=== PATIENT | male | born 1960 | race Caucasian/White ===

== ENCOUNTER → 2019-11-24 13:34 | Outpatient (BNVA) | payer MEDICARE, MEDICAID, SELFPAY | PROVIDERS: Family Provider Nurse Practitioner Family; PCP Nurse Practitioner Family; Visit Provider Nurse Practitioner Family | DX: E11.9 Type 2 diabetes mellitus without complications (principal); I10 Essential (primary) hypertension | CPT/HCPCS: 80053; 83036 ==

== ENCOUNTER → 2020-02-15 13:10 | Outpatient (BNVA) | payer MEDICARE, MEDICAID, SELFPAY | PROVIDERS: Family Provider Nurse Practitioner Family; PCP Nurse Practitioner Family; Referring Provider Nurse Practitioner Family; Visit Provider Dermatology | DX: L24.9 Irritant contact dermatitis, unspecified cause (principal); L28.0 Lichen simplex chronicus; D22.9 Melanocytic nevi, unspecified | CPT/HCPCS: 99203 ==

== ENCOUNTER → 2020-03-08 13:31 | Outpatient (BNVA) | payer MEDICARE, MEDICAID, SELFPAY | PROVIDERS: Family Provider Nurse Practitioner Family; PCP Nurse Practitioner Family; Visit Provider Dermatology | DX: L24.9 Irritant contact dermatitis, unspecified cause (principal); L81.0 Postinflammatory hyperpigmentation | CPT/HCPCS: 99213 ==

== ENCOUNTER → 2020-03-10 08:09 | Outpatient (BNVA) | payer MEDICARE, MEDICAID, SELFPAY | PROVIDERS: Family Provider Nurse Practitioner Family; PCP Nurse Practitioner Family; Visit Provider Nurse Practitioner Family | DX: E11.9 Type 2 diabetes mellitus without complications (principal); I10 Essential (primary) hypertension | CPT/HCPCS: 80053; 80061; 82043; 83036; 85025 ==

== ENCOUNTER 2020-03-11 09:18 | Emergency (ER) | payer MEDICARE, MEDICAID, SELFPAY ==
[2020-03-11 09:19] VITALS: BP 174/106; PULSE 95; RESP 18; TEMP 36.8; O2SAT 96; BMI 34.2
--- NOTE | 2020-03-11 09:25 | ED_ITS ---
HPI - Neuro Symptoms/Deficit General: Chief Complaint: General Medical Stated Complaint: FACIAL DROOP Time Seen by Provider: 03/11/20 09:19 History of Present Illness: HPI Narrative: 59-year-old male comes into the emergency room with complaint of right-sided weakness and facial droop. However he has previously had a stroke in the past. That stroke resulted in some right- sided weakness as well he feels some of the facial droop is new as well as a little bit of difficulty swallowing. His last known well was about 9 or 10 AM yesterday nearly 24 hours ago. He did note a little trouble with swallowing last night he says it is better now the family had reported EMS that he was drooling out the right side of his mouth a little bit which was not normal for him. Associated symptoms: Deny chest pain, malaise, nausea or vomiting Review of Systems Const: Denies: fever(s), chills, body aches, change in appetite, fatigue or malaise ENMT: Denies: throat pain, ear or mastoid pain, nasal discharge or nasal congestion Card: Denies: chest pain, edema, dyspnea on exertion or orthopnea Resp: Denies: dyspnea, productive cough or non-productive cough GI: Denies: abdominal pain, nausea, vomiting, hematemesis, coffee ground emesis, diarrhea, constipation, bloating, hematochezia or melena : Denies: flank pain, dysuria, urinary frequency or urinary urgency Skin/Breast: Denies: rash or pruritus PFSH ED PFSH: Medical History (Updated 03/11/20 @ 10:48 by Stas Steve DO) History of CVA (cerebrovascular accident) HTN (hypertension) Hyperlipidemia Type 2 diabetes mellitus without complication Surgical History Hx of tympanostomy Family History Mother Cancer Sister Cancer Father CAD (coronary artery disease) Stroke Social History Smoking and tobacco status: former smoker Second hand smoke exposure: Yes Alcohol intake: never NIH stroke score NIHSS: Level Of Consciousness - 1a: 0 Level Of Consciousness Questions - 1b: Both Correct Level Of Consciousness Commands - 1c: Both Correct Best Gaze - 2: Normal Visual Peck - 3: No Visual Loss Facial Palsy - 4: Partial Paralysis Motor Arm Right - 5: No Drift Motor Arm Left - 5: No Drift Motor Leg Right - 6: No Drift Motor Leg Left - 6: No Drift Limb Ataxia - 7: Absent Sensory - 8: Normal Best Language - 9: No Aphasia Dysarthia - 10: Mild/Moderate Dysarthia Extinction And Inattention - 11: 0 Score: Total Score: 3 Physical Exam Const: COMMON NORMALS: no acute distress GENERAL APPEARANCE: cooperative and comfortable ORIENTATION/CONSCIOUSNESS: Yes awake, Yes oriented to person, Yes oriented to place and Yes oriented to time HENMT: COMMON NORMALS: normocephalic, atraumatic and hearing grossly normal bilaterally HEAD & SCALP: normocephalic and atraumatic Eye: COMMON NORMALS: Equal, round and reactive pupils present, EOMs intact bilaterally, conjunctivae normal and no scleral icterus CONJUNCTIVA: Yes conjunctivae normal PUPIL: Yes Equal, round and reactive pupils present Neck/C-Spine: COMMON NORMALS: full ROM, no lymphadenopathy, supple and no JVD Lymph: LYMPHATIC: no lymphadenopathy noted and no lymphedema noted Resp: COMMON NORMALS: normal respiratory effort, No retractions, No use of accessory muscles and clear to auscultation bilaterally AUSCULTATION: clear to auscultation bilaterally Cardio: COMMON NORMALS: no JVD, regular rate, regular rhythm and No murmurs present (Cardio) RATE: regular rate RHYTHM: regular rhythm GI: COMMON NORMALS: Soft to palpation and No hepatosplenomegaly present AUSCULTATION: Yes normoactive bowel sounds PALPATION: Yes Soft to palpation, No Tenderness to palpation present (GI), No Guarding due to palpation present (GI) and Yes No hepatosplenomegaly present Extremity: COMMON NORMALS: normal to inspection, capillary refill normal, no clubbing, cyanosis or edema, no calf tenderness and no pedal edema Neuro: SENSORIUM/ORIENTATION: Yes oriented to person, Yes oriented to place and Yes oriented to time Skin: COMMON NORMALS: no rashes or lesions noted GENERAL SKIN EXAM: no rashes or lesions noted Course Vital Signs: Vital signs: Vital Signs Temperature 98.3 F 03/11/20 09:19 Pulse Rate 82 03/11/20 11:41 Respiratory Rate 18 09/11/20 11:41 Blood Pressure 120/89 09/11/20 11:41 Pulse Oximetry 95 03/11/20 11:41 MDM - Neuro Symptoms/Deficit MDM Narrative: Medical decision making narrative: Reviewed findings with patient and his . He has a stroke score of 3 but a lot of that is really residual from his previous stroke he says he is resolved now from what he felt was new earlier. At this point I do not think there is a lot to do he is over 24 hours out and his symptoms already resolved technically he experienced a TIA with his previous stroke it does make it more difficult we will set him up for an MRI carotid and echo and have him follow-up with his primary care as an outpatient if his worsening or changes symptoms return. Lab Data: Labs: Lab Results 03/11/20 03/11/20 03/11/20 Range/Units 09:27 09:27 09:27 WBC 9.5 (4.0-10.0) 10^3/ uL RBC 5.01 (4.1-5.3) 10^6/u L Hgb 14.2 (11.7-16.6) g/dL Hct 42.8 (42.0-52.0) % MCV 85.4 (80-94) fL MCH 28.3 (28.0-34.0) pg MCHC 33.2 (30.0-36.0) g/dL RDW 13.7 (12.1-15.1) % Plt Count 215 (130-400) 10^3/c mm MPV 11.6 H (7.4-10.4) fL Neut % (Auto) 69.9 % Lymph % (Auto) 20.0 % Dougherty % (Auto) 6.7 % Eos % (Auto) 3.0 % Baso % (Auto) 0.2 % Neut # (Auto) 6.62 (1.8-7.7) 10^3/u L Lymph # (Auto) 1.9 (0.8-4.8) 10^3/u L Dougherty # (Auto) 0.6 (0.2-0.9) 10^3/u L Eos # (Auto) 0.3 (0.0-0.8) 10^3/u L Baso # (Auto) 0.0 (0.0-0.1) 10^3/u L Nucleated RBC % (a uto) 0 % Nucleated RBCs # 0.0 /100WBC PT 12.50 (12.1-14.9) SECO NDS INR 0.91 (0.8-1.2) APTT 30.0 (23.9-36.7) SECO NDS Sodium 140 (136-145) mmol/L Potassium 4.3 (3.5-5.1) mmol/L Chloride 104 (98-107) mmol/L Carbon Dioxide 26 (22-29) mmol/L Anion Gap 14.3 (5-19) BUN 15 (6-20) mg/dL Creatinine 0.9 (0.7-1.2) mg/dL GFR Calculation 87.0 L (90-130) mL/min Glucose 125 H (65-115) mg/dL POC Glucose (70-110) mg/dL Calculated Osmolal ity 288 (285-295) mOsm/k g Calcium 9.1 (8.5-10.5) mg/dL Total Bilirubin 0.2 (0.15-1.2) mg/dL AST 17 (0-40) U/L ALT 12 (0-41) U/L Alkaline Phosphata se 108 (40-130) IU/L Total Protein 7.4 (6.6-8.7) g/dL Albumin 4.1 (3.5-5.2) g/dL Globulin 3.3 (1.3-4.6) g/dL Urine Color (Yellow) Urine Appearance (CLEAR) Urine pH (5-7) Ur Specific Gravit y (1.005-1.030) Urine Protein (Negative) Urine Glucose (UA) (Normal) Urine Ketones (Negative) Urine Blood (Negative) Urine Nitrate (Negative) Urine Bilirubin (Negative) Urine Urobilinogen (Negative) mg/dL Ur Leukocyte Hortensia ase (Negative) Urine RBC (0-2) /hpf Urine WBC (0-5) /hpf Ur Squamous Epith Cells (0-5) /hpf Amorphous Sediment Urine Bacteria (NONE) /hpf 03/11/20 03/11/20 Range/Units 09:38 10:21 WBC (4.0-10.0) 10^3/ uL RBC (4.1-5.3) 10^6/u L Hgb (11.7-16.6) g/dL Hct (42.0-52.0) % MCV (80-94) fL MCH (28.0-34.0) pg MCHC (30.0-36.0) g/dL RDW (12.1-15.1) % Plt Count (130-400) 10^3/c mm MPV (7.4-10.4) fL Neut % (Auto) % Lymph % (Auto) % Dougherty % (Auto) % Eos % (Auto) % Baso % (Auto) % Neut # (Auto) (1.8-7.7) 10^3/u L Lymph # (Auto) (0.8-4.8) 10^3/u L Dougherty # (Auto) (0.2-0.9) 10^3/u L Eos # (Auto) (0.0-0.8) 10^3/u L Baso # (Auto) (0.0-0.1) 10^3/u L Nucleated RBC % (a uto) % Nucleated RBCs # /100WBC PT (12.1-14.9) SECO NDS INR (0.8-1.2) APTT (23.9-36.7) SECO NDS Sodium (136-145) mmol/L Potassium (3.5-5.1) mmol/L Chloride (98-107) mmol/L Carbon Dioxide (22-29) mmol/L Anion Gap (5-19) BUN (6-20) mg/dL Creatinine (0.7-1.2) mg/dL GFR Calculation (90-130) mL/min Glucose (65-115) mg/dL POC Glucose 114 (70-110) mg/dL Calculated Osmolal ity (285-295) mOsm/k g Calcium (8.5-10.5) mg/dL Total Bilirubin (0.15-1.2) mg/dL AST (0-40) U/L ALT (0-41) U/L Alkaline Phosphata se (40-130) IU/L Total Protein (6.6-8.7) g/dL Albumin (3.5-5.2) g/dL Globulin (1.3-4.6) g/dL Urine Color Yellow (Yellow) Urine Appearance Hazy A (CLEAR) Urine pH 6.5 (5-7) Ur Specific Gravit y 1.010 (1.005-1.030) Urine Protein Neg (Negative) Urine Glucose (UA) Norm (Normal) Urine Ketones Negative (Negative) Urine Blood Neg (Negative) Urine Nitrate Positive H (Negative) Urine Bilirubin Neg (Negative) Urine Urobilinogen Neg (Negative) mg/dL Ur Leukocyte Hortensia ase 2+ H (Negative) Urine RBC None (0-2) /hpf Urine WBC 55-80 H (0-5) /hpf Ur Squamous Epith Cells 0-4 H (0-5) /hpf Amorphous Sediment Not Reportable Urine Bacteria 4+ H (NONE) /hpf Discharge Plan Discharge Patient Disposition: Home Clinical Impression: Transient ischemic attack (TIA), HTN (hypertension), Type 2 diabetes mellitus without complication Condition: Stable Prescriptions: New aspirin 81 mg tablet,chewable 81 mg PO DAILY Qty: 30 RF: 0 No Action clobetasol 0.05 % ointment 1 applic TOPICAL BID Qty: 45 RF: 1 ofloxacin 0.3 % drops 10 drop EAR-BOTH DAILY 7 Days Qty: 10 RF: 0 ketoconazole 2 % cream 1 applic TOPICAL BID Qty: 30 RF: 1 simvastatin 40 mg tablet 40 mg PO DAILY Qty: 30 RF: 1 tamsulosin 0.4 mg capsule 0.4 mg PO DAILY Qty: 90 RF: 1 docusate sodium [DOK] 100 mg capsule 100 mg PO BID Qty: 60 RF: 5 metformin 500 mg tablet 500 mg PO DAILY Qty: 90 RF: 0 amlodipine 10 mg tablet 10 mg PO DAILY Qty: 90 RF: 1 metoprolol tartrate 25 mg tablet 12.5 mg PO BID Qty: 90 RF: 0 clopidogrel 75 mg tablet 75 mg PO DAILY Qty: 30 RF: 2 Discharge Orders: Discharge Order (Routine); Ordered 03/11/20 Ordered By: Stas Steve Referrals: Katelynn Markham FNP [Primary Care Provider] - Discharge Diet: Usual diet Discharge Activity: Increase activity as tolerated Discharge Date/Time: 03/11/20 11:42 Coding Level of Care Code ED Crop Quantitative Geneticist for Grace Severino
[2020-03-11 09:29] VITALS: BP 131/83; PULSE 77; RESP 11; O2SAT 95
--- NOTE | 2020-03-11 09:31 | ECG_ITS ---
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 Measurements Intervals Diamond Rate: 76 P: 19 MO: 143 QRS: 2 QRSD: 86 T: 15 QT: 364 QTc: 410 Interpretive Statements SINUS RHYTHM No previous ECG available for comparison Electronically Signed On 03-11-2020 14:58:21 CDT by Fernando Mejia M.D. [id number]
--- NOTE | 2020-03-11 09:31 | CT_ITS ---
WS: [id number] CT HEAD TECHNIQUE: Noncontrast CT of the head obtained from the skullbase to the vertex. CLINICAL INFORMATION: Symptoms of Acute Stroke COMPARISON: None. DLP: 840.[address] scans at [facility] use at least one of these dose optimization techniques: automat ed exposure control; mA and/or kV adjustment per patient size (includes targeted exams where dose is matched to clinical indication); or iterative reconstruction. FINDINGS: No evidence of intracranial hemorrhage or mass effect. Ventricular system and basal cisterns are mitchell nt. Mild small vessel changes with mild parenchymal volume loss. No extra-axial fluid collections. No evidence of mass or mass effect. Normal herrera-white differentiation. Mild mucosal thickening mastoid air cells. Fluid and mucosal thickening in the ethmoid air cells. CT/CT head wo con* [id number] IMPRESSION: 1. No evidence of intracranial hemorrhage or mass effect. 2. Mild small vessel changes with mild parenchymal volume loss. 3. No acute intracranial findings. Notified Stas Steve DO at 03/11/2020 9:52 AM.
[2020-03-11 09:42] LABS: Glucose Point of Care 114 mg/dL (70-110)
[2020-03-11 09:48] LABS: Basophils % 0.2 %; Eosinophils # 0.3 10^3/uL (0.0-0.8); Hematocrit 42.8 % (42.0-52.0); Hemoglobin 14.2 g/dL (11.7-16.6); Lymphocytes # 1.9 10^3/uL (0.8-4.8); Mean Corpuscular HGB Conc 33.2 g/dL (30.0-36.0); Mean Corpuscular Hemoglobin 28.3 pg (28.0-34.0); Mean Corpuscular Volume 85.4 fL (80-94); Mean Platelet Volume 11.6 fL (7.4-10.4); Monocytes # 0.6 10^3/uL (0.2-0.9); Monocytes % 6.7 %; Neutrophils # 6.62 10^3/uL (1.8-7.7); Neutrophils % 69.9 %; Nucleated Red Blood Cells % 0 %; Platelet Count 215 10^3/cmm (130-400); Red Blood Count 5.01 10^6/uL (4.1-5.3); Red Cell Distribution Width 13.7 % (12.1-15.1); White Blood Count 9.5 10^3/uL (4.0-10.0)
[2020-03-11 09:54] LABS: INR 0.91 (0.8-1.2)
[2020-03-11 10:01] LABS: Alanine Aminotransferase 12 U/L (0-41); Albumin Level 4.1 g/dL (3.5-5.2); Alkaline Phosphatase 108 IU/L (40-130); Anion Gap 14.3 (5-19); Aspartate Amino Transferase 17 U/L (0-40); Blood Urea Nitrogen 15 mg/dL (6-20); Calcium 9.1 mg/dL (8.5-10.5); Carbon Dioxide 26 mmol/L (22-29); Chloride 104 mmol/L (98-107); Globulin 3.3 g/dL (1.3-4.6); Glucose 125 mg/dL (65-115); Osmolality Calculated 288 mOsm/kg (285-295); Potassium 4.3 mmol/L (3.5-5.1); Sodium 140 mmol/L (136-145); Total Bilirubin 0.2 mg/dL (0.15-1.2); Total Protein 7.4 g/dL (6.6-8.7)
[2020-03-11 10:46] VITALS: BP 131/84; PULSE 90; RESP 12; O2SAT 95
[2020-03-11 11:22] LABS: Add Urine Microscopic? YES; Bilirubin Urine Neg (Negative); Blood Urine Neg (Negative); Glucose Urine UA Norm (Normal); Ketones Urine Negative (Negative); Leukocyte Esterase Urine 2+ (Negative); Nitrate Urine Positive (Negative); Protein Urine Neg (Negative); Urine Appearance Hazy (CLEAR); Urine Color Yellow (Yellow); Urobilinogen Urine Neg (Negative); pH Urine 6.5 (5-7)
[2020-03-11 11:23] LABS: Add Urine Culture? Yes; Bacteria Urine 4+ /hpf; Squamous Epithelial Cell Urine 0-4 /hpf (0-5); WBC Urine 55-80 /hpf (0-5)
[2020-03-11 11:41] VITALS: BP 120/89; PULSE 82; RESP 18; O2SAT 95
--- NOTE | 2020-03-15 09:48 | DCPLANNER ---
late entry - disability case manager had message to schedule out patient testing for patient for MRI of head, carotid ultrasound, and an echo cardiogram. residence manager faxed order to centralized scheduling, will call for appointment information.
--- NOTE | 2020-03-17 10:24 | DCPLANNER ---
Patient has an MRI scheduled for Saturday, March 25, 2020 at 11:45 - centralized scheduling will call patient with appointment information. Patient has an carotid US and an echo scheduled for , March 24, 2020 - centralized scheduling will call patient with appointment information.
--- NOTE | 2020-04-05 15:20 | DCPLANNER ---
Patient did attend appointments scheduled for MRI, Carotid US and echo.
== END 2020-03-11 11:42 | disposition home or self-care (01) ==
PROVIDERS: Emergency Provider Family Medicine; PCP Nurse Practitioner Family
DX: G45.9 Transient cerebral ischemic attack, unspecified (principal); I10 Essential (primary) hypertension; E11.9 Type 2 diabetes mellitus without complications; Z79.84 Long term (current) use of oral hypoglycemic drugs; Z79.02 Long term (current) use of antithrombotics/antiplatelets; Z86.73 Personal history of transient ischemic attack (TIA), and cerebral infarction without residual deficits; E78.5 Hyperlipidemia, unspecified; Z87.891 Personal history of nicotine dependence
CPT/HCPCS: 12345; 36416; 70450; 80053; 81001; 82962; 85025; 85610; 85730; 87077; 87086; 87186; 93005; 96374; 99283; 99284

== ENCOUNTER 2020-03-24 13:16 | Outpatient (CLI) | payer MEDICARE, MEDICAID, SELFPAY ==
--- NOTE | 2020-03-24 13:30 | USCV_ITS ---
Rutledge Bro Age: 59 Gender: M : 1960 Exam Date: 03/24/2020 14:06 Ordering Phys: Katelynn Markham-C DESK ASSISTANT Technologist: Andie Hernandez [place] [facility] [place] TIA BP: 130 / 78 HR: 74 Rhythm: Sinus Technical Quality: Adequate MEASUREMENTS (Male / Female) Normal Values 2D ECHO LV Diastolic Diameter PLAX 4.8 cm 4.2 - 5.9 / 3.9 - 5.3 cm LV Systolic Diameter PLAX 2.6 cm LV Chamber Size 3.6 cm IVS Diastolic Thickness 1.5 cm 0.6 - 1.0 / 0.6 - 0.9 cm IVS Systolic Thickness 1.8 cm LVPW Diastolic Thickness 1.3 cm 0.6 - 1.0 / 0.6 - 0.9 cm LVPW Systolic Thickness 1.4 cm RV Chamber Size 2.8 cm LVOT Diameter 2.1 cm LV Ejection Fraction 2D Teich 77.6 % LV Ejection Fraction MOD 2C 20.1 % LV Ejection Fraction 2C AL 18.3 % LA Diameter 5.0 cm LA Width 3.0 cm LA Height 3.9 cm RA Width 2.7 cm RA Height 4.1 cm Aorta at Sinotubular Diameter 3.5 cm M-MODE LV Diastolic Diameter MM 6.1 cm 4.2 - 5.9 / 3.9 - 5.3 cm LV Systolic Diameter MM 3.4 cm LV Ejection Fraction MM Teich 74.0 % IVS Diastolic Thickness MM 0.9 cm 0.6 - 1.0 / 0.6 - 0.9 cm IVS Systolic Thickness MM 1.8 cm LVPW Diastolic Thickness MM 1.2 cm 0.6 - 1.0 / 0.6 - 0.9 cm LVPW Systolic Thickness MM 2.0 cm RV Diastolic Diameter MM 2.2 cm Aortic Annulus Diameter 3.5 cm LA Ao Ratio MM 1.4 DOPPLER AV Peak Velocity 152.0 cm/s LVOT Peak Velocity 110.0 cm/s AV Area Cont Eq vti 2.8 cm squared AV Area Cont Eq pk 2.5 cm squared MV Area PHT 3.5 cm squared Mitral E to A Ratio 1.1 MV E' Velocity 6.0 cm/s Mitral E to LV E' Lateral Ratio 13.9 TR Peak Velocity 235.0 cm/s TR Peak Gradient 22.1 mmHg TR Mean Velocity 169.5 cm/s TR Mean Gradient 12.7 mmHg TR Velocity Time Integral 57.9 cm TV Peak E Velocity 77.0 cm/s Right Atrial Pressure 3.0 mmHg Pulmonary Artery Systolic Pressu 25.1 mmHg PV Peak Velocity 85.0 cm/s RV Acceleration Time 0.1 s RV Ejection Time 0.3 s RV AcT/ET 0.3 FINDINGS Left Ventricle Normal left ventricular size and systolic function. LV systolic function is normal with EF of 55 to 60% with no regional wall motion abnormalities. Mild LVH is noted. Diastolic function is indeterminate because of limited quality tissue Doppler. Right Ventricle The right ventricle is mildly dilated with normal function Right Atrium The right atrium is normal in size. Left Atrium The left atrium is normal in size. Mitral Valve Structurally normal mitral valve without significant stenosis or prolapse. There is no mitral regurgitation. Aortic Valve Structurally normal aortic valve without significant sclerosis or stenosis. There is no aortic regurgitation. Tricuspid Valve Structurally normal tricuspid valve without significant stenosis or regurgitation. Insufficient TR jet to calculate RVSP. Pulmonic Valve Structurally normal pulmonic valve without significant stenosis. There is no pulmonic regurgitation. Pericardium Normal pericardium without effusion. Aorta Normal ascending aorta dimension. CONCLUSIONS Normal LV systolic function with EF of 55 to 60%. Diastolic function is indeterminate because of limited quality tissue doppler Fernando Mejia MD (Electronically Signed) Final Date: 24 March 2020 16:49 S
--- NOTE | 2020-03-24 14:15 | USCV_ITS ---
Bro Rutledge Age: 59 Gender: M : 1960 Exam Date: 03/24/2020 14:22 Ordering Phys: Katelynn Markham Technologist: Andie Hernandez [place] [facility] [place]: TIA Risk Factors: Unknown Previous Vascular Surgery: None Right Brachial BP: / Left Brachial BP: / Right Left Velocity (cm/s) Spectral Plaque Velocity (cm/s) Spectral Plaque Syst/Diast Broadening Syst/Diast Broadening 93.70/ 15.80 Prox CCA 98.60 / 24.60 63.10/ 15.80 Mid CCA 84.80 / 17.70 51.80/ 13.00 Distal CCA 63.10 / 24.60 45.70/ 12.20 Prox ICA 70.30 / 17.10 56.30/ 14.90 Mid ICA 70.30 / 17.70 47.50/ 17.00 Distal ICA 38.80 / 14.20 68.50 ECA 105.50 0.89 ICA/CCA 0.83 Antegrade Vertebral Antegrade 23.50/ 7.50 cm/s 38.80/ 10.40 cm/s Tri Subclavian Tri 76.90 65.00 FINDINGS Minimal plaques at the bifurcations and internal carotid arteries bilaterally Antegrade flow in the vertebral arteries bilaterally Intimal thickening in the common carotid arteries bilaterally Normal Doppler flow velocities in the external carotid arteries bilaterally CONCLUSIONS Minimal plaques at the bifurcations and internal carotid arteries bilaterally. Intimal thickening in the common carotid arteries bilaterally. No significant stenosis, based on the above findings [id number] Dr Rai Ugarte MD [facility] (Electronically Signed) Final Date: 24 March 2020 19:58 S
== END 2020-03-24 13:17 | disposition home or self-care (01) ==
LOC: RAD 13:23
PROVIDERS: PCP Nurse Practitioner Family; Visit Provider Nurse Practitioner Family
DX: G45.9 Transient cerebral ischemic attack, unspecified (principal)
CPT/HCPCS: 93306; 93880; 99204

== ENCOUNTER 2020-04-01 14:32 | Outpatient (CLI) | payer MEDICARE, MEDICAID, SELFPAY ==
--- NOTE | 2020-04-01 14:41 | MR_ITS ---
WS: [id number] MRI HEAD WITH CONTRAST TECHNIQUE: Sagittal T1, T2 axial, T2 axial FLAIR, axial susceptibility weighted imaging, axial diffus ion weighted images, and coronal T2 images were obtained. Pre and post-T1 axial and post T1 coronal i mages. ADC and FSPGR images. CLINICAL INFORMATION: TIA;HISTORY CVA COMPARISON: CT March 11, 2020 FINDINGS: No evidence of restricted diffusion to suggest acute ischemia. Ventricular system and basal cisterns are patent. Moderate small vessel changes. Mild parenchymal volume loss. Small vessel changes in the kristine. Chronic tiny lacunar infarct left thalamus. Chronic lacunar infarct right cerebellum. Normal va scular flow voids at the skull base. No extra axial fluid collections. No evidence of mass or mass ef fect. Mild mucosal thickening in the paranasal sinuses. Mild mucosal thickening in the mastoid air ce lls Tiny punctate focus of hemosiderin in the right parietal lobe. No abnormal gadolinium enhancement. No rmal optic chiasm and pituitary infundibulum. Normal dural venous sinuses. MR/MR head wo/w con [id number] IMPRESSION: 1. No evidence of restricted diffusion to suggest acute ischemia. 2. Moderate small vessel changes with mild parenchymal volume loss. 3. Chronic lacunar infarcts in the left thalamus and right cerebellum. 4. No abnormal gadolinium enhancement. 5. Mild mucosal thickening in the paranasal sinuses and mastoid air cells. Ret ention cyst in the maxillary sinuses. 6. No abnormal gadolinium enhancement.
== END 2020-04-01 14:33 | disposition home or self-care (01) ==
LOC: RADSHAW 14:36
PROVIDERS: PCP Nurse Practitioner Family; Visit Provider Family Medicine
DX: G45.9 Transient cerebral ischemic attack, unspecified (principal); Z86.73 Personal history of transient ischemic attack (TIA), and cerebral infarction without residual deficits; I63.81 Other cerebral infarction due to occlusion or stenosis of small artery
CPT/HCPCS: 70553; A9579

== ENCOUNTER → 2020-11-07 15:08 | Outpatient (BNVA) | payer MEDICARE, MEDICAID, SELFPAY | PROVIDERS: PCP Nurse Practitioner Family; Visit Provider Nurse Practitioner Family | DX: I10 Essential (primary) hypertension (principal); E78.5 Hyperlipidemia, unspecified; Z51.81 Encounter for therapeutic drug level monitoring; Z79.02 Long term (current) use of antithrombotics/antiplatelets; E11.9 Type 2 diabetes mellitus without complications; H91.90 Unspecified hearing loss, unspecified ear | CPT/HCPCS: 80053; 80061; 83036; 85025 ==

== ENCOUNTER → 2022-01-05 00:01 | Outpatient (BNVA) | payer MEDICARE, MEDICAID, SELFPAY | PROVIDERS: PCP Nurse Practitioner Family; Visit Provider Nurse Practitioner Family | DX: E11.9 Type 2 diabetes mellitus without complications (principal); I10 Essential (primary) hypertension; Z79.01 Long term (current) use of anticoagulants; L81.7 Pigmented purpuric dermatosis | CPT/HCPCS: 80053; 82043; 83036; 85025 ==

== ENCOUNTER 2022-04-10 12:26 | Outpatient (CLI) | payer MEDICARE, MEDICAID, SELFPAY ==
--- NOTE | 2022-04-10 12:30 | CT_ITS ---
WS: [id number] CT HEAD NONCONTRAST HISTORY: R53.1 - Weakness TECHNIQUE: Contiguous axial imaging performed through the brain in 2.5 mm imaging. Bone and soft tiss ue windows. Sagittal and coronal reformats reviewed. All CT scans at [facility] use at least one of these dose optimization techniques: automated exposure control; mA and/or kV adjustment per pa tient size (includes targeted exams where dose is matched to clinical indication); or iterative recon struction. DLP: 1109.08 mGy.cm COMPARISON: 03/11/2020 No acute intracranial hemorrhage, midline shift or mass effect. No significant atrophy. Mild small vessel ischemic changes. Suspect a small remote lacunar infarct ne ar the RIGHT caudate. Ventricles: Normal size with no hydrocephalus. Paranasal sinuses: Posterior RIGHT ethmoid air cell disease. No air-fluid levels. Mastoid air cells: Coalescence of mastoid air cells from prior mastoiditis. Soft tissue extends throu gh the internal and external auditory canals on the LEFT surrounding the middle air ossicles. Signifi cant progression since 03/11/2020. Calvarium and scalp: Skull is intact with no soft tissue edema or swelling. CT/CT head wo con* [id number] IMPRESSION: 1. No acute intracranial hemorrhage or edema. 2. Mild small vessel ischemic disease. Suspect a very small remote lacunar inf arct in the RIGHT caudate. 3. Increased soft tissue in the LEFT middle ear. Suspect cholesteatoma or otom astoiditis. Progression of soft tissue since 03/11/2020.
== END 2022-04-10 12:27 | disposition home or self-care (01) ==
LOC: RAD 12:33
PROVIDERS: PCP Nurse Practitioner Family; Visit Provider Nurse Practitioner Family
DX: R53.1 Weakness (principal)
CPT/HCPCS: 70450; 80053; 83036; 85025

== ENCOUNTER → 2022-04-25 10:38 | Outpatient (BNVA) | payer MEDICARE, MEDICAID, SELFPAY | PROVIDERS: PCP Nurse Practitioner Family; Visit Provider Otolaryngology | DX: S00.452A Superficial foreign body of left ear, initial encounter (principal); H91.90 Unspecified hearing loss, unspecified ear; X58.XXXA Exposure to other specified factors, initial encounter | CPT/HCPCS: 69200; 69205; 99203 ==

== ENCOUNTER → 2022-05-09 13:14 | Outpatient (BNVA) | payer MEDICARE, MEDICAID, SELFPAY | PROVIDERS: PCP Nurse Practitioner Family; Visit Provider Otolaryngology | DX: H66.92 Otitis media, unspecified, left ear (principal); H69.82 Other specified disorders of Eustachian tube, left ear; H72.2X1 Other marginal perforations of tympanic membrane, right ear; H91.90 Unspecified hearing loss, unspecified ear | CPT/HCPCS: 99213 ==

== ENCOUNTER → 2022-08-10 08:34 | Outpatient (BNVA) | payer MEDICARE, MEDICAID, SELFPAY | PROVIDERS: PCP Nurse Practitioner Family; Visit Provider Otolaryngology | DX: H61.23 Impacted cerumen, bilateral (principal); H72.2X1 Other marginal perforations of tympanic membrane, right ear; H69.82 Other specified disorders of Eustachian tube, left ear; H66.92 Otitis media, unspecified, left ear | CPT/HCPCS: 69210; 99212 ==

== ENCOUNTER → 2022-08-23 13:11 | Outpatient (BNVA) | payer MEDICARE, MEDICAID, SELFPAY | PROVIDERS: PCP Nurse Practitioner Family; Referring Provider Nurse Practitioner Family; Visit Provider Specialist | DX: G31.84 Mild cognitive impairment of uncertain or unknown etiology (principal); Z79.01 Long term (current) use of anticoagulants; Z86.73 Personal history of transient ischemic attack (TIA), and cerebral infarction without residual deficits; R26.89 Other abnormalities of gait and mobility | CPT/HCPCS: 99215 ==

== ENCOUNTER 2022-10-10 12:47 | Outpatient (CLI) | payer MEDICARE, MEDICAID, SELFPAY ==
--- NOTE | 2022-10-10 13:00 | MR_ITS ---
WS: [id number] MRA ANGIOGRAPHY [place] OF [place] HISTORY: I69.30 - Unspecified sequelae of cerebral infarction COMPARISON: MRI 04/01/[address] head 04/10/2022 TECHNIQUE: 3-D MR angiography is performed of the [place]. All images are reviewed including source images. Dominant distal LEFT vertebral artery. Nonvisualization of the distal RIGHT vertebral artery may be d ue to hypoplasia or remote obstruction. Hypoplastic distal RIGHT vertebral artery was also noted on t he prior MRI of the head from 04/01/2020. This is not an acute finding. Normal size basilar artery. Po sterior cerebral arteries are both visualized. There is slight motion artifact causing mild haziness of the arterial wall. There is no occlusion or aneurysm identified. Small caliber posterior communica ting arteries. Intracranial portion of the internal carotid arteries are normal course and caliber. No significant a therosclerosis, stenosis or aneurysm identified. Patent middle cerebral arteries but there is mild at herosclerotic disease noted bilaterally. No occlusion or aneurysm. Moderate stenosis involving the di stal RIGHT M1 segment. Anterior cerebral arteries are normal caliber. No aneurysm. MR/MR angio head wo con [id number] IMPRESSION: 1. Moderate stenosis distal RIGHT M1 segment. 2. Otherwise mild atherosclerotic changes within the middle cerebral arteries. 3. Dominant distal LEFT vertebral artery.
== END 2022-10-10 12:48 | disposition home or self-care (01) ==
LOC: RAD 12:48
PROVIDERS: PCP Nurse Practitioner Family; Visit Provider Specialist
DX: I69.30 Unspecified sequelae of cerebral infarction (principal); I66.01 Occlusion and stenosis of right middle cerebral artery
CPT/HCPCS: 70544

== ENCOUNTER 2022-10-10 12:47 | Outpatient (CLI) | payer MEDICARE, MEDICAID, SELFPAY ==
--- NOTE | 2022-10-10 14:00 | MR_ITS ---
WS: [id number] MRA CAROTID ARTERIES HISTORY: I69.30 - Unspecified sequelae of cerebral infarction COMPARISON: None available. TECHNIQUE: MRA carotid arteries, noncontrast. MIP and source images are reviewed. Limited quality evaluation without IV contrast. Motion artifact. Right: Cervical carotid and bifurcation are intact. No high-grade stenosis. Left: Cervical carotid and bifurcation are intact. No high-grade stenosis. Subclavian arteries are nonvisualized. Vertebral Arteries: Dominant LEFT vertebral artery. No stenosis. The RIGHT vertebral artery is small caliber. Distally into the skull base may be occluded or hypoplastic. This is not a new finding. MR/MR angio neck wo con [id number] IMPRESSION: 1. No cervical carotid artery stenosis. 2. Dominant LEFT vertebral artery. 3. Hypoplastic RIGHT vertebral artery. Distal RIGHT vertebral artery at the sk ull base is not visualized. This is not an acute finding. May be congenital.
== END 2022-10-10 12:48 | disposition home or self-care (01) ==
LOC: RAD 12:48
PROVIDERS: PCP Nurse Practitioner Family; Visit Provider Specialist
DX: I69.30 Unspecified sequelae of cerebral infarction (principal); Q27.8 Other specified congenital malformations of peripheral vascular system
CPT/HCPCS: 70547

== ENCOUNTER 2022-10-10 12:47 | Outpatient (CLI) | payer MEDICARE, MEDICAID, SELFPAY ==
--- NOTE | 2022-10-10 13:15 | MR_ITS ---
WS: [id number] MRI BRAIN WITH HIGH-RESOLUTION IMAGING THROUGH THE INTERNAL AUDITORY CANALS WITHOUT CONTRAST HISTORY: I69.30 - Unspecified sequelae of cerebral infarction, hearing loss. COMPARISON: 04/01/2020, CT head 04/10/2022 TECHNIQUE: Multiplanar, multisequence imaging is performed through the brain. Additional 3 mm imaging performed in multiple planes through the internal auditory canal. No acute intracranial hemorrhage, midline shift, edema or mass effect. Mild atrophy. Numerous T2 and FLAIR signal hyperintensities in the subcortical and periventricular wh ite matter. Signal abnormality in the anterior inferior kristine midline and just to the LEFT of midline. Most likely a small lacunar infarct. Additional small lacunar infarcts near the RIGHT caudate head a nd LEFT thalamus. Previously described lacunar infarct in the RIGHT cerebellum is not as well visuali zed today. Ventricles and extra-axial spaces are normal. No inferior displacement of cerebellar tonsils. Internal and external auditory canals: No mass effect. No signal abnormality. Cranial nerves VII and VIII complexes: No signal abnormality. Cerebellopontine angles: Normal. Paranasal sinuses: Moderate mucoperiosteal thickening involving the maxillary sinuses and ethmoid air cells. No air-fluid levels. Mastoid air cells: Normal. Calvarium and scalp: Normal. Visualized [place] and dural venous sinuses demonstrate no abnormality. MR/MR iac's wo con [id number] IMPRESSION: 1. No mass or mass effect at the cerebellopontine angles or along the internal auditory canals. 2. Focal increased T2 and FLAIR signal along the anterior inferior kristine. Most consistent with a small lacunar infarct which is new since 04/01/2020. 3. Additional RIGHT caudate and LEFT thalamic infarcts with moderate small ves yamel ischemic disease. 4. Previously described RIGHT cerebellar infarct is not as well visualized on today's exam.
== END 2022-10-10 12:48 | disposition home or self-care (01) ==
LOC: RAD 12:48
PROVIDERS: PCP Nurse Practitioner Family; Visit Provider Specialist
DX: I69.30 Unspecified sequelae of cerebral infarction (principal); H91.90 Unspecified hearing loss, unspecified ear
CPT/HCPCS: 70544; 70547; 70551

== ENCOUNTER → 2022-11-07 13:18 | Outpatient (BNVA) | payer MEDICARE, MEDICAID, SELFPAY | PROVIDERS: PCP Nurse Practitioner Family; Visit Provider Otolaryngology | DX: H72.2X1 Other marginal perforations of tympanic membrane, right ear (principal); H61.23 Impacted cerumen, bilateral | CPT/HCPCS: 69210; 99212; 99213 ==

== ENCOUNTER → 2022-11-28 11:03 | Outpatient (BNVA) | payer MEDICARE, MEDICAID, SELFPAY | PROVIDERS: PCP Nurse Practitioner Family; Visit Provider Specialist | DX: I69.354 Hemiplegia and hemiparesis following cerebral infarction affecting left non-dominant side (principal); G46.3 Brain stem stroke syndrome; Z74.09 Other reduced mobility; Z91.81 History of falling | CPT/HCPCS: 99214 ==

== ENCOUNTER → 2023-02-07 09:01 | Outpatient (BNVA) | payer MEDICARE, MEDICAID, SELFPAY | PROVIDERS: PCP Nurse Practitioner Family; Visit Provider Nurse Practitioner Family | DX: R53.83 Other fatigue (principal); I10 Essential (primary) hypertension; E11.9 Type 2 diabetes mellitus without complications | CPT/HCPCS: 80053; 83036; 85025 ==

== ENCOUNTER → 2023-02-11 13:15 | Outpatient (BNVA) | payer MEDICARE, MEDICAID, SELFPAY | PROVIDERS: PCP Nurse Practitioner Family; Visit Provider Otolaryngology | DX: H66.92 Otitis media, unspecified, left ear (principal); H69.82 Other specified disorders of Eustachian tube, left ear; H72.2X1 Other marginal perforations of tympanic membrane, right ear | CPT/HCPCS: 69210; 99213 ==

== ENCOUNTER → 2023-04-30 07:57 | Outpatient (BNVA) | payer MEDICARE, MEDICAID, SELFPAY | PROVIDERS: PCP Nurse Practitioner Family; Visit Provider Podiatrist Foot & Ankle Surgery | DX: B35.1 Tinea unguium (principal); E11.9 Type 2 diabetes mellitus without complications; L84 Corns and callosities; Z86.73 Personal history of transient ischemic attack (TIA), and cerebral infarction without residual deficits; M21.379 Foot drop, unspecified foot; R53.1 Weakness; Z79.84 Long term (current) use of oral hypoglycemic drugs | CPT/HCPCS: 11056; 11721; 99204 ==

== ENCOUNTER 2023-05-06 14:27 | Outpatient (CLI) | payer MEDICARE, MEDICAID, SELFPAY ==
--- NOTE | 2023-05-06 14:45 | USCV_ITS ---
Bro Rutledge Age: 63 Gender: M : 1960 Exam Date: 05/06/2023 14:38 Ordering Phys: Katelynn Markham [employer]-C [employer] Technologist: CT Exam Location: [facility] [place] Indication: Risk Factors: Previous Vascular Surgery: RIGHT LEFT BP: 140.0 / 78.00 BP: 138.0/ 81.00 0 0 Waveform Velocity (cm/s) Velocity (cm/s) Waveform Triphasic 113.6 Iliac Prox 92.8 Triphasic Triphasic 89.6 Iliac Mid 92.8 Triphasic Triphasic Iliac Distal Triphasic 89.5 95.1 Triphasic 92.7 MOISTURE TESTER 87.2 Triphasic Triphasic 73.9 SFA Prox 80.5 Triphasic Triphasic 78.9 SFA Mid 73.8 Triphasic Triphasic 68.0 SFA Dist 64.9 Triphasic Triphasic 76.1 POP 80.5 Triphasic Triphasic 71.7 MEDICAL SUPPLY TECHNICIAN 64.7 Triphasic Triphasic 89.0 DPA 89.0 Triphasic 1.1 GIORGI 1.0 FINDINGS Intimal thickening in the femoral and popliteal arteries bilaterally Resting GIORGI 1.1 on the right side and 1.0 on the left side CONCLUSIONS 1. Normal resting ABIs bilaterally 2. Intimal thickening in the femoral and popliteal arteries bilaterally 3. No significant arterial obstruction, based on the above findings Dr Rai Ugarte MD [facility] (Electronically Signed) Final Date: 07 May 2023 20:09 S
== END 2023-05-06 14:28 | disposition home or self-care (01) ==
PROVIDERS: PCP Nurse Practitioner Family; Visit Provider Nurse Practitioner Family
DX: M79.604 Pain in right leg (principal); M79.605 Pain in left leg
CPT/HCPCS: 93925

== ENCOUNTER → 2023-05-07 13:32 | Outpatient (BNVA) | payer MEDICARE, MEDICAID, SELFPAY | PROVIDERS: PCP Nurse Practitioner Family; Visit Provider Nurse Practitioner Family | DX: E78.5 Hyperlipidemia, unspecified (principal); E11.9 Type 2 diabetes mellitus without complications; I10 Essential (primary) hypertension; Z79.01 Long term (current) use of anticoagulants | CPT/HCPCS: 80053; 80061; 83036; 85025 ==

== ENCOUNTER 2023-06-26 06:19 | Outpatient (CLI) | payer MEDICARE, MEDICAID, SELFPAY ==
--- NOTE | 2023-06-26 06:30 | USR_ITS ---
PROCEDURE INFORMATION: Exam: US Abdomen Complete Exam date and time: 06/26/2023 6:25 AM Age: 63 years old Clinical indication: Abdominal pain; Generalized; Additional info: R10.9 - unspecified abdominal pain, swelling right abdomen TECHNIQUE: Imaging protocol: Real-time ultrasound of the abdomen with image documentation. Complete exam. COMPARISON: CT abdomen pelvis w con* [id number] 11/06/2016 1:50 PM FINDINGS: Liver: The liver is prominent in size measuring 16.4 cm in span. The liver is homogeneous. Liver is of mildly increased echogenicity suggesting sonographically mild hepatic steatosis. Gallbladder: The gallbladder wall measures approximately 3 mm, gallbladder is not fully distended. No cholelithiasis was demonstrated. Biliary ducts: The extrahepatic bile duct where seen is nondilated measuring 3 mm diameter. Pancreas: Visualization of the pancreas and aorta was quite limited due to the acoustic window. Right kidney: The left kidney measures 12.3 cm and the right kidney 11.6 cm in length. There is evidence of mild right renal scarring. A right renal cyst of 3.4 x 2.6 x 3.8 cm size is newly demonstrated from the prior examination. Left kidney: The left kidney measures 12.3 cm and the right kidney 11.6 cm in length. No hydronephrosis Spleen: The spleen is not enlarged measuring approximately 8 cm. Intraperitoneal space: There is no free fluid identified. Aorta: Visualization of the pancreas and aorta was quite limited due to the acoustic window. Inferior vena cava: IVC visualization was likewise limited. Portal venous: Blood flow within the main portal vein is directed appropriately towards the liver. Other findings:A somewhat heterogeneous though solid-appearing structure in the right upper quadrant inferior to the liver measuring approximately 16.8 x 13.1 cm is present. US/US abdomen complete* [id number] IMPRESSION: 1. A large somewhat heterogeneous but solid appearing structure of approximately 16.8 x 13.1 cm is noted in the right upper quadrant of undetermined etiology. This could conceivably represent distended stool-filled right colon, but neoplasm must be strongly considered. Recommend further evaluation by abdominal CT preferably with both oral and intravenous contrast. 2. Borderline gallbladder wall thickening likely an artifact of incomplete distention. No obvious cholelithiasis. 3. Newly demonstrated right renal cyst.
== END 2023-06-26 06:20 | disposition home or self-care (01) ==
PROVIDERS: PCP Nurse Practitioner Family; Visit Provider Nurse Practitioner Family
DX: R10.84 Generalized abdominal pain (principal); N28.1 Cyst of kidney, acquired; R19.01 Right upper quadrant abdominal swelling, mass and lump
CPT/HCPCS: 76700

== ENCOUNTER 2023-06-27 09:24 | Outpatient (CLI) | payer MEDICARE, MEDICAID, SELFPAY ==
[2023-06-27] MEDS: iohexol 350 mg/mL 500 mL Btl (per mL) PO (10:02)
--- NOTE | 2023-06-27 11:00 | CTR_ITS ---
PROCEDURE INFORMATION: Exam: CT Abdomen And Pelvis With Contrast Exam date and time: 06/27/2023 10:58 AM Age: 63 years old Clinical indication: Condition or disease; Other: Intr-abdominal and pelvic swelling mass on RT side of abdomen x 8 years; Patient HX: HX of bladder cancer; Additional info: R19.00 - intra-abdominal and pelvic swelling, mass and abhilash. . . , Oral and iv contrast per radiology TECHNIQUE: Imaging protocol: Computed tomography of the abdomen and pelvis with contrast. Radiation optimization: All CT scans at this facility use at least one of these dose optimization techniques: automated exposure control; mA and/or kV adjustment per patient size (includes targeted exams where dose is matched to clinical indication); or iterative reconstruction. Contrast material: OMNI 350; Contrast volume: 95 ml; Contrast route: INTRAVENOUS (IV); REPORTING DATA: Count of CT and Cardiac NM exams in prior 12 months: This patient has received 0 known CTs and 0 known cardiac nuclear medicine studies in the 12 months prior to the current study. COMPARISON: CT abdomen pelvis w con* [id number] 11/06/2016 1:50 PM RADIATION DOSE METRICS: Total DLP (mGy-cm): 989.47 FINDINGS: Liver: Normal. No mass. Gallbladder and bile ducts: Normal. No calcified stones. No ductal dilation. Pancreas: Normal. No ductal dilation. Spleen: Normal. No splenomegaly. Adrenal glands: Normal. No mass. Kidneys and ureters: Right renal cyst. Scarring of the lower pole of the right kidney. Stomach and bowel: Unremarkable. No obstruction. No mucosal thickening. Appendix: No evidence of appendicitis. Intraperitoneal space: Unremarkable. No free air. No significant fluid collection. Vasculature: Unremarkable. No abdominal aortic aneurysm. Lymph nodes: Unremarkable. No enlarged lymph nodes. Urinary bladder: Unremarkable as visualized. Reproductive: Unremarkable as visualized. Bones/joints: Deformity from healed right rib fractures. Soft tissues: Unremarkable. CT/CT abdomen pelvis w con* [id number] IMPRESSION: No acute subdiaphragmatic pathology. COMMENTS: Consistent with the [employer]'s Incidental Findings Committee white paper (J Am Blank Radiol 2018): Any incidental renal lesion less than 1 cm or classified as too small to characterize, or any incidental cystic renal lesion characterized as simple-appearing, is likely benign. No follow-up imaging is recommended for these lesions per consensus recommendations based on imaging criteria.
[2023-06-27] MEDS: iohexol 350 mg/mL 500 mL Btl (per mL) IV (11:09)
== END 2023-06-27 09:25 | disposition home or self-care (01) ==
LOC: RAD 09:24
PROVIDERS: PCP Nurse Practitioner Family; Visit Provider Nurse Practitioner Family
DX: R19.00 Intra-abdominal and pelvic swelling, mass and lump, unspecified site (principal); Z85.51 Personal history of malignant neoplasm of bladder
CPT/HCPCS: 74177; Q9967

== ENCOUNTER → 2023-07-15 08:12 | Outpatient (BNVA) | payer MEDICARE, MEDICAID, SELFPAY | PROVIDERS: PCP Nurse Practitioner Family; Visit Provider Podiatrist Foot & Ankle Surgery | DX: B35.1 Tinea unguium (principal); L84 Corns and callosities; Z86.73 Personal history of transient ischemic attack (TIA), and cerebral infarction without residual deficits; R53.1 Weakness; E11.69 Type 2 diabetes mellitus with other specified complication; M21.371 Foot drop, right foot; Z79.84 Long term (current) use of oral hypoglycemic drugs | CPT/HCPCS: 11056; 11721 ==

== ENCOUNTER → 2023-08-07 09:07 | Outpatient (BNVA) | payer MEDICARE, MEDICAID, SELFPAY | PROVIDERS: PCP Nurse Practitioner Family; Visit Provider Nurse Practitioner Family | DX: E11.9 Type 2 diabetes mellitus without complications (principal) | CPT/HCPCS: 83036 ==

== ENCOUNTER → 2023-09-16 08:09 | Outpatient (BNVA) | payer MEDICARE, MEDICAID, SELFPAY | PROVIDERS: PCP Nurse Practitioner Family; Visit Provider Podiatrist Foot & Ankle Surgery | DX: B35.1 Tinea unguium (principal); L84 Corns and callosities; Z86.73 Personal history of transient ischemic attack (TIA), and cerebral infarction without residual deficits; R53.1 Weakness; E11.69 Type 2 diabetes mellitus with other specified complication; M21.371 Foot drop, right foot; Z79.84 Long term (current) use of oral hypoglycemic drugs | CPT/HCPCS: 11056; 11721 ==

== ENCOUNTER → 2023-11-18 13:00 | Outpatient (BNVA) | payer MEDICARE, MEDICAID, SELFPAY | PROVIDERS: PCP Nurse Practitioner Family; Visit Provider Podiatrist Foot & Ankle Surgery | DX: B35.1 Tinea unguium (principal); L84 Corns and callosities; Z86.73 Personal history of transient ischemic attack (TIA), and cerebral infarction without residual deficits; M21.379 Foot drop, unspecified foot; R53.1 Weakness; M21.371 Foot drop, right foot; Z79.84 Long term (current) use of oral hypoglycemic drugs; E11.69 Type 2 diabetes mellitus with other specified complication | CPT/HCPCS: 11056; 11721 ==

== ENCOUNTER → 2023-12-24 15:29 | Outpatient (BNVA) | payer MEDICARE, MEDICAID, SELFPAY | PROVIDERS: PCP Nurse Practitioner Family; Visit Provider Nurse Practitioner Family | DX: E11.9 Type 2 diabetes mellitus without complications (principal); I10 Essential (primary) hypertension; R53.83 Other fatigue | CPT/HCPCS: 80053; 80061; 83036; 85025 ==

== ENCOUNTER → 2023-12-30 14:03 | Outpatient (BNVA) | payer MEDICARE, MEDICAID, SELFPAY | PROVIDERS: PCP Nurse Practitioner Family; Visit Provider Podiatrist Foot & Ankle Surgery | DX: B35.1 Tinea unguium (principal); L84 Corns and callosities; Z86.73 Personal history of transient ischemic attack (TIA), and cerebral infarction without residual deficits; M21.379 Foot drop, unspecified foot; R53.1 Weakness; E11.69 Type 2 diabetes mellitus with other specified complication; Z79.84 Long term (current) use of oral hypoglycemic drugs | CPT/HCPCS: 11721 ==

== ENCOUNTER → 2024-03-16 13:10 | Outpatient (BNVA) | payer MEDICARE, MEDICAID, SELFPAY | PROVIDERS: PCP Nurse Practitioner Family; Visit Provider Podiatrist Foot & Ankle Surgery | DX: B35.1 Tinea unguium (principal); L84 Corns and callosities; Z86.73 Personal history of transient ischemic attack (TIA), and cerebral infarction without residual deficits; R53.1 Weakness; E11.69 Type 2 diabetes mellitus with other specified complication; M21.371 Foot drop, right foot; Z79.84 Long term (current) use of oral hypoglycemic drugs | CPT/HCPCS: 11055; 11721 ==

== ENCOUNTER → 2024-03-17 10:41 | Outpatient (BNVA) | payer MEDICARE, MEDICAID, SELFPAY | PROVIDERS: PCP Nurse Practitioner Family; Visit Provider Nurse Practitioner Family | DX: I10 Essential (primary) hypertension (principal); E11.9 Type 2 diabetes mellitus without complications | CPT/HCPCS: 80053; 80061; 83036 ==

== ENCOUNTER → 2024-05-18 14:03 | Outpatient (BNVA) | payer MEDICARE, MEDICAID, SELFPAY | PROVIDERS: PCP Nurse Practitioner Family; Visit Provider Podiatrist Foot & Ankle Surgery | DX: B35.1 Tinea unguium (principal); L84 Corns and callosities; Z86.73 Personal history of transient ischemic attack (TIA), and cerebral infarction without residual deficits; R53.1 Weakness; E11.69 Type 2 diabetes mellitus with other specified complication; M21.371 Foot drop, right foot; Z79.84 Long term (current) use of oral hypoglycemic drugs | CPT/HCPCS: 11056; 11721 ==

== ENCOUNTER → 2024-07-21 14:48 | Outpatient (BNVA) | payer MEDICAID, SELFPAY | PROVIDERS: PCP Nurse Practitioner Family; Visit Provider Podiatrist Foot & Ankle Surgery | DX: E11.8 Type 2 diabetes mellitus with unspecified complications (principal); B35.1 Tinea unguium; L84 Corns and callosities; Z86.73 Personal history of transient ischemic attack (TIA), and cerebral infarction without residual deficits; R53.1 Weakness; M21.371 Foot drop, right foot; Z79.84 Long term (current) use of oral hypoglycemic drugs | CPT/HCPCS: 99213 ==

== ENCOUNTER → 2024-09-22 14:16 | Outpatient (BNVA) | payer MEDICARE, MEDICAID, SELFPAY | PROVIDERS: PCP Nurse Practitioner Family; Visit Provider Podiatrist Foot & Ankle Surgery | DX: E11.69 Type 2 diabetes mellitus with other specified complication (principal); B35.1 Tinea unguium; L84 Corns and callosities; Z86.73 Personal history of transient ischemic attack (TIA), and cerebral infarction without residual deficits; M21.379 Foot drop, unspecified foot; R53.1 Weakness; M21.371 Foot drop, right foot | CPT/HCPCS: 11056; 11721; 99213 ==

== ENCOUNTER → 2024-09-28 14:32 | Outpatient (BNVA) | payer MEDICARE, MEDICAID, SELFPAY | PROVIDERS: PCP Nurse Practitioner Family; Visit Provider Nurse Practitioner Family | DX: R53.83 Other fatigue (principal); I10 Essential (primary) hypertension; E11.9 Type 2 diabetes mellitus without complications | CPT/HCPCS: 80053; 80061; 83036; 84443; 85025 ==

== ENCOUNTER → 2024-11-24 14:07 | Outpatient (BNVA) | payer MEDICARE, MEDICAID, SELFPAY | PROVIDERS: PCP Nurse Practitioner Family; Visit Provider Podiatrist Foot & Ankle Surgery | DX: E11.42 Type 2 diabetes mellitus with diabetic polyneuropathy (principal); B35.1 Tinea unguium; L84 Corns and callosities; Z86.73 Personal history of transient ischemic attack (TIA), and cerebral infarction without residual deficits; E11.69 Type 2 diabetes mellitus with other specified complication; R53.1 Weakness; M21.371 Foot drop, right foot | CPT/HCPCS: 11056; 11721 ==

== ENCOUNTER → 2025-01-27 13:04 | Outpatient (BNVA) | payer MEDICARE, MEDICAID, SELFPAY | PROVIDERS: PCP Nurse Practitioner Family; Visit Provider Podiatrist Foot & Ankle Surgery | DX: E11.69 Type 2 diabetes mellitus with other specified complication (principal); B35.1 Tinea unguium; L84 Corns and callosities; Z86.73 Personal history of transient ischemic attack (TIA), and cerebral infarction without residual deficits; R53.1 Weakness; M21.371 Foot drop, right foot | CPT/HCPCS: 11056; 11721 ==

== ENCOUNTER → 2025-02-18 08:46 | Outpatient (BNVA) | payer MEDICARE, MEDICAID, SELFPAY | PROVIDERS: PCP Nurse Practitioner Family; Visit Provider Nurse Practitioner Family | DX: I10 Essential (primary) hypertension (principal); E11.9 Type 2 diabetes mellitus without complications; R53.83 Other fatigue | CPT/HCPCS: 80053; 80061; 83036; 85025 ==

== ENCOUNTER 2025-02-25 08:10 | Outpatient (CLI) | payer OTHER, MEDICAID, SELFPAY ==
--- NOTE | 2025-02-25 09:30 | CT_ITS ---
WS: [id number] CT ABDOMEN AND PELVIS WITH CONTRAST HISTORY: R19.01 - Right upper quadrant abdominal swelling, mass present for 15 years. TECHNIQUE: Imaging performed of the abdomen and pelvis with IV contrast. Single phase imaging of the abdomen. Coronal and sagittal reformats are submitted. All CT scans at [facility] use at least one of these dose optimization techniques: automated exposure control; mA and/or kV adjustment per patient size (includes targeted exams where dose is matched to clinical indication); or iterative reconstruction. IV CONTRAST: Omnipaque 350; 100 mL IV. Oral contrast: Yes. DLP: 1005.37 mGy.cm COMPARISON: 06/27/2023 Lower thorax: Mild dependent changes at the lung bases. Heart is normal size. Small hiatal hernia. Marked splaying of the RIGHT eighth and ninth ribs. Prior posterior healed rib fractures involving the sixth through ninth ribs. Splaying of the ribs resulting in protrusion of the upper abdominal structures including portions of the liver and colon. Intercostal muscles are no longer intact. Liver/biliary system: Normal size with no intrahepatic dilatation. Gallbladder: Normal. No gallstones or wall thickening. No pericholecystic fluid. No change. Pancreas: Normal size pancreas and pancreatic duct. No adjacent inflammation. Spleen: Normal size spleen. No mass or infarct. Adrenal glands: Normal. Right kidney: Mild atrophy with scattered cortical thinning RIGHT kidney. Stable cyst measures 4.7 cm mid kidney. Left kidney: Too small to characterize cortical hypodensities. No obstruction. Aorta: Mild atherosclerosis with no aneurysm. Lymphadenopathy: None. Free fluid: None. GI tract: No GI tract obstruction. Diffuse moderate constipation. Normal appendix. Minimal diverticular disease. Abdominal wall: Ventral abdominal wall diastases rectus. Pelvis: Markedly distended urinary bladder. No free fluid. Bones: Concave defect superior endplate of L3. CT/CT abdomen pelvis w con* [id number] IMPRESSION: 1. Mass in the RIGHT upper quadrant corresponds to thinning of the abdominal w all musculature in the RIGHT lower thorax and upper abdomen with slight protrus ion of liver and colon and omental fat through the defect. Muscular defect is b etween splaying of the RIGHT eighth and ninth ribs. Prior rib fractures. 2. Scattered cortical atrophy RIGHT kidney with a stable RIGHT renal cyst. 3. Moderate diffuse constipation with no GI tract obstruction.
[2025-02-25] MEDS: iohexol 350 mg/mL 500 mL Btl (per mL) IV (09:55)
[2025-02-25] MEDS: iohexol 350 mg/mL 500 mL Btl (per mL) PO (09:55)
== END 2025-02-25 08:11 | disposition home or self-care (01) ==
LOC: RAD 08:11
PROVIDERS: PCP Nurse Practitioner Family; Visit Provider Nurse Practitioner Family
DX: R19.01 Right upper quadrant abdominal swelling, mass and lump (principal); K59.09 Other constipation; N26.1 Atrophy of kidney (terminal); N28.1 Cyst of kidney, acquired
CPT/HCPCS: 74177

== ENCOUNTER → 2025-03-23 14:59 | Outpatient (BNVA) | payer OTHER, MEDICAID, SELFPAY | PROVIDERS: PCP Nurse Practitioner Family; Referring Provider Nurse Practitioner Family; Visit Provider Surgery | DX: R19.01 Right upper quadrant abdominal swelling, mass and lump (principal) | CPT/HCPCS: 99203 ==

== ENCOUNTER → 2025-03-31 13:15 | Outpatient (BNVA) | payer OTHER, MEDICAID, SELFPAY | PROVIDERS: PCP Nurse Practitioner Family; Visit Provider Podiatrist Foot & Ankle Surgery | DX: E11.8 Type 2 diabetes mellitus with unspecified complications (principal); B35.1 Tinea unguium; L84 Corns and callosities; Z86.73 Personal history of transient ischemic attack (TIA), and cerebral infarction without residual deficits; R53.1 Weakness; M21.371 Foot drop, right foot | CPT/HCPCS: 11056; 11721 ==

== ENCOUNTER 2025-05-06 13:01 | Emergency (ER) | payer MEDICARE, MEDICAID, SELFPAY ==
--- OUTSIDE RECORDS SUMMARY | 2025-05-04 02:23 | XMS_ITS | Encounter Summary ---
Author Organization [facility] Address [address] [place] [address] Care Team Providers Care Rubber Molder Name Role Phone Non-Staff, Physician Primary Care Provider Unava ilable Reason for Visit * Reason Comments Fall Encounter Details Date Type Department Care Team (Late st Contact Info) Description 05/04/2025 2:23 AM AUDIOVISUAL LEAD TECHNICIAN - 05/04/2025 4:35 AM [facility] Emergency [facility] Emergency Medicine [address] [place] [id number] Ab Olmos MD [address] [place] [address] [place] [phone] Contusion of right lower leg, initial encounter (Primary Dx) Discharge Disposition: Home or Self Care Social History Tobacco Use Types Packs/Day Years Used Date Smoking Tobacco: Former Cigarettes Smokeless Tobacco: Former Alcohol Use Standard Drinks/Week Comments No 0 (1 standard drink = 0.6 oz pur e alcohol) Food Insecurity Answer Date Recorded Do you find you are eating l ess than you should because you can t pay for food? No 05/04/2025 Transportation Needs Answer Date Record ed Have you gone without health care because you didn t have a way to get there? Or worry about transportation for future doctor visits, pickle maker medication, etc.? No 2024 Housing Stability Answer Date Recorded Do you worry you won t have a steady place to sleep or struggle to pay rent or mortgage? No 05/04/2025 Utility Needs Answer Date Recorded Do you have difficulty payin g for utility costs (electric, water or gas bills)? No 05/04/2025 Medication Needs Answer Date Recorded Have you skipped taking medi cation due to cost or worry you can t afford new medications? No 05/04/2025 Feeling Safe Answer Date Recorded Are you in a relationship wi th someone who hurts you emotionally and/or physically? No 05/04/2025 Sex and Gender Information Value Date Recorded Sex Assigned at Not on file Legal Sex Male 6:36 AM AUDIOVISUAL LEAD TECHNICIAN Gender Identity Not on file Sexual Orientation Not on file documented as of this encounter Last Filed Vital Signs Vital Sign Reading Time Taken Comments Blood Pressure 131/88 05/04/2025 4:00 AM AUDIOVISUAL LEAD TECHNICIAN Pulse 99 05/04/2025 4:00 AM AUDIOVISUAL LEAD TECHNICIAN Temperature 36.7 C (98.1 F) 05/04/2025 2:43 AM AUDIOVISUAL LEAD TECHNICIAN Respiratory Rate 18 05/04/2025 4:00 AM AUDIOVISUAL LEAD TECHNICIAN Oxygen Saturation 95% 05/04/2025 4:00 AM AUDIOVISUAL LEAD TECHNICIAN Inhaled Oxygen Concentration - - Weight 107.9 kg (237 lb 14.4 oz) 05/04/2025 2:43 AM AUDIOVISUAL LEAD TECHNICIAN Height 172.7 cm (5' 8 ) 05/04/2025 2:43 AM AUDIOVISUAL LEAD TECHNICIAN Body Mass Index 36.17 05/04/2025 2:43 AM AUDIOVISUAL LEAD TECHNICIAN documented in this encounter Discharge Instructions * Discharge Instructions* Ab Olmos MD - 05/04/2025 4:15 AM AUDIOVISUAL LEAD TECHNICIAN Follow up with primary care physician and have them order an MRI of the right foot per radiologist recommendation. OVISUAL LEAD TECHNICIAN * Attachments The following attachments cannot be sent through Care Everywhere. * Contusion (Italian) * Hydrocodone Combination Products (Italian) documented in this encounter Medications at Time of Discharge HYDROcodone-aceta minophen (NORCO) 5-325 mg tabletIndications :Contusion of right lower leg, initial encounter Take 1-2 Tablets by mouth every 6 hours as needed for Pain. Max Daily Amount: 8 Tablets 30 Tablet 05/04/2025 simvastatin (ZOCOR) 40 mg tablet TAKE 1 TABLET BY MOUTH EVERY EVENING 7 Tablet 0 07/29/2020 metoprolol tartrate (LOPRESSOR) 25 mg tablet TAKE 1/2 TABLET(12.5 MG) BY MOUTH TWICE DAILY 90 Tablet 2 01/19/2019 metFORMIN (GLUCOPHAGE) 1,000 mg tablet Take 1 Tablet (1,000 mg) by mouth 2 times daily with meals. 180 Tablet 2 01/19/2019 amLODIPine (NORVASC) 10 mg tablet TAKE 1 TABLET(10 MG) BY MOUTH DAILY 90 Tablet 3 12/17/2018 metFORMIN (GLUCOPHAGE) 1,000 mg tablet TAKE 1 TABLET BY MOUTH TWICE DAILY WITH MEALS. MAKE AN APPOINTMENT FOR LABS BEFORE NEXT REFILL. 180 Tablet 0 12/11/2018 tamsulosin (FLOMAX) 0.4 mg capsule TAKE 2 CAPSULES(0.8 MG) BY MOUTH DAILY AFTER SUPPER 180 Capsule 1 11/25/2018 clopidogreL (PLAVIX) 75 mg Tablet Take 1 Tablet (75 mg) by mouth daily. 90 Tablet 0 08/14/2018 blood sugar diagnostic Strip USE TO TEST BLOOD SUGAR TWICE DAILY 50 Strip 0 10/19/2020 methylPREDNISolon e (MEDROL DOSPACK) 4 mg Tablets, Dose Pack Take as directed 21 Tablet 0 08/03/2019 docusate sodium (DOK) 100 mg capsule TAKE 1 CAPSULE(100 MG) BY MOUTH TWICE DAILY 60 Capsule 0 05/27/2019 lancets 30 gauge 1 Each by Misc.(Non-Drug; Combo Route) route daily before breakfast DX: e11.9. 100 Each 2 06/16/2018 Blood-Glucose Meter Use as directed daily. Dx e11.9. 1 Device 0 06/16/2018 sodium bicarbonate 650 mg tablet Take 650 mg by mouth 3 times daily. 04/11/2018 mupirocin (BACTROBAN) 2 % OintmentIndicatio ns:Cellulitis of right lower extremity Apply to affected area daily. 15 Gram 1 04/04/2018 cholecalciferol, Vitamin D3, (VITAMIN D3) 25 mcg (1,000 unit) Capsule TAKE 1 CAPSULE BY MOUTH DAILY. 90 Capsule 0 03/31/2018 documented as of this encounter ED Notes * Humera Delcid, RN - 05/04/2025 2:50 AM CST Bro Rutledge 65 y.o. male, arrived to the ED via TRANSPORTATION: ground ambulance for complaints of fall with right lower leg and foot pain. Per patient fell about 0000 in the kitchen, stated my leg gave out,was not using his walker.4+ pitting edema to bilateral lower legs and feet. Rates pain 7/10 constant ache. Chief Complaint Patient presents with Fall . Vitals taken, patient placed on monitor, clothing removed as needed per policy, privacy provided to patient. Respiratory: WDL - Regular rhythm, symmetrical chest expansion, no dyspnea , Cardiac/Circulatory: WDL - No numbness or tingling, no chest pain , Skin: see note above, patient is Alert and Oriented x4, pain scale: 7/10, findings; bleeding: without any bleeding noted. Behavior during evaluation: appropriate. Belongings secured, patient Weapons assessment: denied possession of any weaponsor firearms at this time. Patient comforted, all questions answered to the best of the staff's ability, education performed, and left patient in the room with the call light in reach, bed in lowest position, wheels locked, side rails up,son at bedside. OVISUAL LEAD TECHNICIAN * Ab Olmos MD - 05/04/2025 2:23 AM CST HISTORY OF PRESENT ILLNESS rBo Rutledge, a 65 y.o. male presents to the ED with a Chief Complaint of Fall Subjective This patient is a 65-year-old white male brought in by his son for evaluation of an injury to his right lower leg and foot. Patient fell tonight injuring the right lower extremity. Patient has a history of prior CVA. REVIEW OF SYSTEMS Review of Systems Constitutional: Negative for appetite change, chills, diaphoresis, fatigue and fever. HENT: Negative for congestion, ear pain, postnasal drip, rhinorrhea, sinus pressure and sore throat. Eyes: Negative for pain and visual disturbance. Respiratory: Negative for cough, chest tightness, shortness of breath and wheezing. Cardiovascular: Negative for chest pain, palpitations and leg swelling. Gastrointestinal: Negative for abdominal distention, abdominal pain, blood in stool, constipation, diarrhea, nausea and vomiting. Genitourinary: Negative for decreased urine volume, difficulty urinating, dysuria, flank pain, frequency, hematuria, testicular pain and urgency. Musculoskeletal: Negative for arthralgias, back pain, joint swelling, myalgias, neck pain and neck stiffness. Right lower leg pain/injury. Skin: Negative for rash. Neurological: Negative for dizziness, seizures, syncope, speech difficulty, weakness, light-headedness, numbness and headaches. Hematological: Negative for adenopathy. Psychiatric/Behavioral: Negative for behavioral problems, confusion, decreased concentration, dysphoric mood, self-injury, sleep disturbance and suicidal ideas. The patient is not nervous/anxious. All other systems reviewed and are negative. 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 SURGICAL: Patient has a past surgical history that includes pr cystourethroscopy with biopsy (N/A, 12/15/2015); pr unlisted procedure urinary system (Bilateral, 12/15/2015); pr colsc flx w/rmvl of tumor polyp lesion snare tq (N/A, 09/04/2016); pr cystostomy cystotomy w/drainage (N/A, 06/22/2015); tonsillectomy; a denoidectomy; pr unlisted procedure urinary system (N/A, 06/22/2015); and turp (N/A, 06/22/2015). FAMILY: Patient's family history includes Heart Attack in his mother; Heart Failure in his father; High Cholesterol in his brother and sister; Stroke in his mother. SOCIAL: reports that he has quit smoking. His smoking use included cigarettes. He has quit using smokeless tobacco. He reports that he does not drink alcohol and does not use drugs. No history on file. Social History Other Topics Concern Not on file ALLERGIES Patient has no known allergies. HOME MEDICATIONS Discharge Medication List as of 05/04/2025 4:29 AM START taking these medications Details HYDROcodone-acetaminophen (NORCO) 5-325 mg tablet Take 1-2 Tablets by mouth every 6 hours as neededfor Pain. Max Daily Amount: 8 Tablets, Disp-30 Tablet, R-0 CONTINUE these medications which have NOT CHANGED Details simvastatin (ZOCOR) 40 mg tablet TAKE 1 TABLET BY MOUTH EVERY EVENING, Disp-7 Tablet, R-0 metoprolol tartrate (LOPRESSOR) 25 mg tablet TAKE 1/2 TABLET(12.5 MG) BY MOUTH TWICE DAILY, Disp-90Tablet, R-2 !! metFORMIN (GLUCOPHAGE) 1,000 mg tablet Take 1 Tablet (1,000 mg) by mouth 2 times daily with meals., Disp-180 Tablet, R-2 amLODIPine (NORVASC) 10 mg tablet TAKE 1 TABLET(10 MG) BY MOUTH DAILY, Disp-90 Tablet, R-3 !! metFORMIN (GLUCOPHAGE) 1,000 mg tablet TAKE 1 TABLET BY MOUTH TWICE DAILY WITH MEALS. MAKE AN APPOINTMENT FOR LABS BEFORE NEXT REFILL., Disp-180 Tablet, R-0 tamsulosin (FLOMAX) 0.4 mg capsule TAKE 2 CAPSULES(0.8 MG) BY MOUTH DAILY AFTER SUPPER, Disp-180 Capsule, R-1 clopidogreL (PLAVIX) 75 mg Tablet Take 1 Tablet (75 mg) by mouth daily., Disp-90 Tablet, R-0 blood sugar diagnostic Strip USE TO TEST BLOOD SUGAR TWICE DAILY, Disp-50 Strip, R-0 methylPREDNISolone (MEDROL DOSPACK) 4 mg Tablets, Dose Pack Take as directed, Disp-21 Tablet, R-0 docusate sodium (DOK) 100 mg capsule TAKE 1 CAPSULE(100 MG) BY MOUTH TWICE DAILY, Disp-60 Capsule, R-0 lancets 30 gauge 1 Each by [facility].(Non-Drug; Combo Route) route daily before breakfast DX: e11.9., Disp-100 Each, R-2 Blood-Glucose Meter Use as directed daily. Dx e11.9., Disp-1 Device, R-0 sodium bicarbonate 650 mg tablet Take 650 mg by mouth 3 times daily. mupirocin (BACTROBAN) 2 % Ointment Apply to affected area daily., Disp-15 Gram, R-1 cholecalciferol, Vitamin D3, (VITAMIN D3) 25 mcg (1,000 unit) Capsule TAKE 1 CAPSULE BY MOUTH DAILY., Disp-90 Capsule, R-0 !! - Potential duplicate medications found. Please discuss with provider. STOP taking these medications oxygen home delivery Comments: Reason for Stopping: Objective PHYSICAL EXAM INITIAL VS BP: (!) 143/95 (05/04/25242), Heart Rate: (!) 108 bpm (05/04/25242), Resp: 18 (05/04/25242), Pulse: (!) 102 (05/04/25 0330), Temp: 98.1 ??F (36.7 ??C) (05/04/25242), Temp src: Temporal (05/04/25242), SpO2: 93 % (05/04/25242), Height: 5' 8 (172.7 cm) (05/04/25242), Weight: 107.9 kg (237 lb 14.4 oz) (05/04/25242), BMI (Calculated): (!) 36.18 (05/04/25242) No LMP for male patient. Physical Exam Vitals and nursing note reviewed. Constitutional: General: He is not in acute distress. Appearance: Normal appearance. Musculoskeletal: General: Swelling and tenderness present. Normal range of motion. Comments: Moderate amount of swelling in both feet but more so in the right foot. Abrasions over the right lower hall. Tender to palpation. Neurological: Mental Status: He is alert. DIAGNOSTICS LAB: No data to display RADIOLOGY: XR FEMUR 2 VW RIGHT Radiologist Impression IMPRESSION: Negative for an acute bony abnormality. . XR TIBIA AND FIBULA 2 VW RIGHT Radiologist Impression IMPRESSION: No acute displaced fracture. Diffuse edema of the right lower extremity. . XR FOOT 3+ VW RIGHT Radiologist Impression IMPRESSION: Lucency in the plantar forefoot. Finding is suggestive of ulceration. Severe soft tissue swelling of the dorsal forefoot. Lucency along the radial cortex of the third proximal phalanx. Finding may represent osteomyelitis. Recommend MRI of the foot. . EKG: PROCEDURES Procedures MEDICAL DECISION MAKING AND PLAN OF CARE Medical Decision Making X-rays of the right femur were negative. X-rays of the right tibia and fibula were negative. X-raysof the right foot did not reveal any fractures but radiologist was concerned about possible osteomyelitis and recommended MRI of the foot. Patient does not have a fever and did not have any erythema of the foot. I did discuss the results with his son and recommended that he follow-up with his primary care provider and have them order the MRI of the foot. He was given injection of Dilaudid for hispain in the emergency department. I did prescribe hydrocodone for home use. Recommended to use ice to the area. He was discharged in stable condition. Amount and/or Complexity of Data Reviewed Radiology: ordered. Risk Prescription drug management. Clinical Scoring & Consults Medications Administered During the ED Stay from 05/04/2025 0225 to 05/04/2025 2140 Date/Time Order Dose Route Action 05/04/2025 0330 AUDIOVISUAL LEAD TECHNICIAN HYDROmorphone (PF) (DILAUDID) injection 0.5 mg 0.5 mg IV Given 05/04/2025 0328 AUDIOVISUAL LEAD TECHNICIAN ondansetron (ZOFRAN) 4 mg/2 mL injection 4 mg 4 mg IV Given Discharge Medication List as of 05/04/2025 4:29 AM START taking these medications Details HYDROcodone-acetaminophen (NORCO) 5-325 mg tablet Take 1-2 Tablets by mouth every 6 hours as neededfor Pain. Max Daily Amount: 8 Tablets, Disp-30 Tablet, R-0 CONTINUE these medications which have NOT CHANGED Details simvastatin (ZOCOR) 40 mg tablet TAKE 1 TABLET BY MOUTH EVERY EVENING, Disp-7 Tablet, R-0 metoprolol tartrate (LOPRESSOR) 25 mg tablet TAKE 1/2 TABLET(12.5 MG) BY MOUTH TWICE DAILY, Disp-90Tablet, R-2 !! metFORMIN (GLUCOPHAGE) 1,000 mg tablet Take 1 Tablet (1,000 mg) by mouth 2 times daily with meals., Disp-180 Tablet, R-2 amLODIPine (NORVASC) 10 mg tablet TAKE 1 TABLET(10 MG) BY MOUTH DAILY, Disp-90 Tablet, R-3 !! metFORMIN (GLUCOPHAGE) 1,000 mg tablet TAKE 1 TABLET BY MOUTH TWICE DAILY WITH MEALS. MAKE AN APPOINTMENT FOR LABS BEFORE NEXT REFILL., Disp-180 Tablet, R-0 tamsulosin (FLOMAX) 0.4 mg capsule TAKE 2 CAPSULES(0.8 MG) BY MOUTH DAILY AFTER SUPPER, Disp-180 Capsule, R-1 clopidogreL (PLAVIX) 75 mg Tablet Take 1 Tablet (75 mg) by mouth daily., Disp-90 Tablet, R-0 blood sugar diagnostic Strip USE TO TEST BLOOD SUGAR TWICE DAILY, Disp-50 Strip, R-0 methylPREDNISolone (MEDROL DOSPACK) 4 mg Tablets, Dose Pack Take as directed, Disp-21 Tablet, R-0 docusate sodium (DOK) 100 mg capsule TAKE 1 CAPSULE(100 MG) BY MOUTH TWICE DAILY, Disp-60 Capsule, R-0 lancets 30 gauge 1 Each by [facility].(Non-Drug; Combo Route) route daily before breakfast DX: e11.9., Disp-100 Each, R-2 Blood-Glucose Meter Use as directed daily. Dx e11.9., Disp-1 Device, R-0 sodium bicarbonate 650 mg tablet Take 650 mg by mouth 3 times daily. mupirocin (BACTROBAN) 2 % Ointment Apply to affected area daily., Disp-15 Gram, R-1 cholecalciferol, Vitamin D3, (VITAMIN D3) 25 mcg (1,000 unit) Capsule TAKE 1 CAPSULE BY MOUTH DAILY., Disp-90 Capsule, R-0 !! - Potential duplicate medications found. Please discuss with provider. STOP taking these medications oxygen home delivery Comments: Reason for Stopping: LAST VS BP: 131/88 (05/04/25399), Heart Rate: (!) 108 bpm (05/04/25242), Resp: 18 (05/04/25399), Pulse: 99 (05/04/25399), Temp: 98.1 ??F (36.7 ??C) (05/04/25242), Temp src: Temporal (05/04/25242), SpO2: 95 % (05/04/25399) CLINICAL IMPRESSION Diagnosis Diagnosis Comment Added By Time Added Contusion of right lower leg, initial encounter [S80.11XA] Ab Olmos MD 05/04/2025 4:14AM DISPOSITION, EDUCATION AND MEDICATION RECONCILIATION Medications reconciled. See after visit summary for patient education on discharged patients. ED Disposition ED Disposition Discharge Condition Stable User Ab Olmos MD Date/Time SatMay 04, 2025 4:14 AM Comment -- ATTESTATION STATEMENTS OVISUAL LEAD TECHNICIAN documented in this encounter Plan of Treatment Not on file documented as of this encounter Procedures Procedure Name Priority Date/Time Associated Diagnosis Comments XR FEMUR 2 VW RIGHT Stat 05/04/2025 3 :29 AM AUDIOVISUAL LEAD TECHNICIAN XR TIBIA AND FIBULA 2 VW RIGHT Stat 05/04/2025 3:29 AM AUDIOVISUAL LEAD TECHNICIAN XR FOOT 3+ VW RIGHT Stat 05/04/2025 3 :29 AM AUDIOVISUAL LEAD TECHNICIAN documented in this encounter Results * XR FEMUR 2 VW RIGHT (05/04/2025 3:29 AM AUDIOVISUAL LEAD TECHNICIAN) Anatomical Region Laterality Modality Lower Extremity Computed Radiogr aphy 05/04/2025 3:30 AM AUDIOVISUAL LEAD TECHNICIAN Impressions 05/04/2025 3:58 AM AUDIOVISUAL LEAD TECHNICIAN IMPRESSION: Negative for an acute bony abnormality. . Narrative 05/04/2025 3:58 AM AUDIOVISUAL LEAD TECHNICIAN EXAM: XR FEMUR 2 VW RIGHT DATE/TIME OF EXAM: 05/04/2025 3:29 AM REASON FOR EXAM: Fall DIAGNOSIS: See Reason for Exam COMPARISON: None FINDINGS: No radiographic evidence of an acute fracture, dislocation, or suspicious osseous lesion. No significant arthrosis; joint spaces are preserved. Soft tissues are grossly unremarkable. No suspicious radiodense foreign bodies identified. Procedure Note Sylvester Eugene MD - 05/04/2025 EXAM: XR FEMUR 2 VW RIGHT DATE/TIME OF EXAM: 05/04/2025 3:29 AM REASON FOR EXAM: Fall DIAGNOSIS: See Reason for Exam COMPARISON: None FINDINGS: No radiographic evidence of an acute fracture, dislocation, or suspicious osseous lesion. No significant arthrosis; joint spaces are preserved. Soft tissues are grossly unremarkable. No suspicious radiodense foreign bodies identified. IMPRESSION: Negative for an acute bony abnormality. . Ab Olmos MD DIAGNOSTIC IMAGING ORDER MANDEEP Final Result * XR TIBIA AND FIBULA 2 VW RIGHT (05/04/2025 3:29 AM AUDIOVISUAL LEAD TECHNICIAN) Anatomical Region Laterality Modality Lower Extremity Computed Radiogr aphy 05/04/2025 3:29 AM AUDIOVISUAL LEAD TECHNICIAN Impressions 05/04/2025 3:57 AM AUDIOVISUAL LEAD TECHNICIAN IMPRESSION: No acute displaced fracture. Diffuse edema of the right lower extremity. . Narrative 05/04/2025 3:57 AM AUDIOVISUAL LEAD TECHNICIAN EXAM: XR TIBIA AND FIBULA 2 VW RIGHT DATE/TIME OF EXAM: 05/04/2025 3:29 AM REASON FOR EXAM: Fall DIAGNOSIS: See Reason for Exam COMPARISON: None FINDINGS: Diffuse osteopenia. No radiographic evidence of an acute fracture, dislocation, or suspicious osseous lesion. No significant arthrosis; joint spaces are preserved. Diffuse soft tissue edema right lower extremity.. No suspicious radiodense foreign bodies identified. Procedure Note Sylvester Eugene MD - 05/04/2025 EXAM: XR TIBIA AND FIBULA 2 VW RIGHT DATE/TIME OF EXAM: 05/04/2025 3:29 AM REASON FOR EXAM: Fall DIAGNOSIS: See Reason for Exam COMPARISON: None FINDINGS: Diffuse osteopenia. No radiographic evidence of an acute fracture, dislocation, or suspicious osseous lesion. No significant arthrosis; joint spaces are preserved. Diffuse soft tissue edema right lower extremity.. No suspicious radiodense foreign bodies identified. IMPRESSION: No acute displaced fracture. Diffuse edema of the right lower extremity. . Ab Olmos MD DIAGNOSTIC IMAGING ORDER MANDEEP Final Result * XR FOOT 3+ VW RIGHT (05/04/2025 3:29 AM AUDIOVISUAL LEAD TECHNICIAN) Anatomical Region Laterality Modality Ankle / Foot Computed Radiogr aphy 05/04/2025 3:29 AM AUDIOVISUAL LEAD TECHNICIAN Impressions 05/04/2025 3:57 AM AUDIOVISUAL LEAD TECHNICIAN IMPRESSION: Lucency in the plantar forefoot. Finding is suggestive of ulceration. Severe soft tissue swelling of the dorsal forefoot. Lucency along the radial cortex of the third proximal phalanx. Finding may represent osteomyelitis. Recommend MRI of the foot. . Narrative 05/04/2025 3:57 AM AUDIOVISUAL LEAD TECHNICIAN EXAM: XR FOOT 3+ VW RIGHT DATE/TIME OF EXAM: 05/04/2025 3:29 AM REASON FOR EXAM: Fall DIAGNOSIS: See Reason for Exam COMPARISON: None FINDINGS: Diffuse osteopenia. No acute displaced fracture identified. Lucency of the third proximal phalanx. Severe dorsal soft tissue swelling. Vascular calcifications. Lucency in the plantar aspect of the foot Procedure Note Sylvester Eugene MD - 05/04/2025 EXAM: XR FOOT 3+ VW RIGHT DATE/TIME OF EXAM: 05/04/2025 3:29 AM REASON FOR EXAM: Fall DIAGNOSIS: See Reason for Exam COMPARISON: None FINDINGS: Diffuse osteopenia. No acute displaced fracture identified. Lucency of the third proximal phalanx. Severe dorsal soft tissue swelling. Vascular calcifications. Lucency in the plantar aspect of the foot IMPRESSION: Lucency in the plantar forefoot. Finding is suggestive of ulceration. Severe soft tissue swelling of the dorsal forefoot. Lucency along the radial cortex of the third proximal phalanx. Finding may represent osteomyelitis. Recommend MRI of the foot. . us Ab Olmos MD DIAGNOSTIC IMAGING ORDER MANDEEP Final Result documented in this encounter Visit Diagnoses Diagnosis Contusion of right lower leg, initial encounter- Primary documented in this encounter Administered Medications Inactive Administered Medications - up to 3 most recent administrations Medication Order MAR Action Action Date Dose Rate Site HYDROmorphone (PF) (DILAUDID) injection 0.5 mg 0.5 mg, IV, ONE TIME ONLY, 1 dose, On Sat05/04/25 at 0245, Routine Given 05/04/2025 3:30 AM AUDIOVISUAL LEAD TECHNICIAN 0.5 mg ondansetron (ZOFRAN) 4 mg/2 mL injection 4 mg 4 mg, IV, ONE TIME ONLY, 1 dose, On Sat05/04/25 at 0245, Stat Given 05/04/2025 3:28 AM AUDIOVISUAL LEAD TECHNICIAN 4 mg documented in this encounter Active and Recently Administered Medications Due to Daylight Saving Time, this section may contain times in both CDT and AUDIOVISUAL LEAD TECHNICIAN. Scheduled Medication Order 05/02/2025 05/03/2025 05/04/2025 HYDROmorphone (PF) (DILAUDID) injection 0.5 mg (COMPLETED) 0.5 mg, IV, ONE TIME ONLY, 1 dose, On Sat05/04/25 at 0245, Routine 0330 (Given - Provid er: Humera Delcid, RN) ondansetron (ZOFRAN) 4 mg/2 mL injection 4 mg (COMPLETED) 4 mg, IV, ONE TIME ONLY, 1 dose, On 05/04/25 at 0245, Stat 0328 (Given - Provid er: Humera Delcid, RN) documented in this encounter Care Teams Rubber Molder Relationship Specialty Start Date End Date Non-Staff, Physician NO ADDRESS ON FILE PCP - General 08/07/21 documented as of this encounter
[2025-05-06 13:11] VITALS: BP 129/86; PULSE 104; RESP 18; TEMP 36.5; O2SAT 96; BMI 43.3
--- OUTSIDE RECORDS SUMMARY | 2025-05-06 13:12 | XMS_ITS | Encounter Summary ---
Author Organization [facility] Address [address] [place] [address] Care Team Providers Care Automation Clerk Name Role Phone Stella Knight MD Primary Care Provider Encounter Details Date Type Department Care Team (Late st Contact Info) Description 04/03/2019 Ancillary Orders [facility] [address] [place] [address] Katelynn Markham, KETTLE WORKER [address] [place] [address] Contusion of knee and lower leg, right, initial encounter Social History Tobacco Use Types Packs/Day Years Used Date Smoking Tobacco: Former Cigarettes 0.5 5 Smokeless Tobacco: Former Alcohol Use Standard Drinks/Week Comments No 0 (1 standard drink = 0.6 oz pur e alcohol) Sex and Gender Information Value Date Recorded Sex Assigned at Not on file 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 Mild degenerative changes. [id number] Narrative 04/03/2019 6:47 PM CDT Exam: XR KNEE 3 VW RIGHT Date/Time of Exam: 04/03/2019 11:21 AM Reason For Exam: See Diagnosis. Diagnosis: Contusion of knee and lower leg, right, initial encounter; Contusion of knee and lower leg, right, initial encounter. Comparison: 05/02/2015. Findings: There is no evidence of an acute fracture or dislocation. There are mild degenerative changes. There is no apparent joint effusion. There are vascular calcifications. Procedure Note Timothy Garcia, DO - 04/03/2019 Exam: XR KNEE 3 VW RIGHT Date/Time of Exam: 04/03/2019 11:21 AM Reason For Exam: See Diagnosis. Diagnosis: Contusion of knee and lower leg, right, initial encounter; Contusion of knee and lower leg, right, initial encounter. Comparison: 05/02/2015. Findings: There is no evidence of an acute fracture or dislocation. There are mild degenerative changes. There is no apparent joint effusion. There are vascular calcifications. IMPRESSION: No acute osseous abnormality. Mild degenerative changes. [id number] Katelynn Markham KETTLE WORKER DIAGNOSTIC IMAGING ORDERABL ES Final Result documented in this encounter Visit Diagnoses Diagnosis Contusion of knee and lower leg, right, initial encounter Contusion of knee and lower leg, right, initial encounter documented in this encounter Care Teams Automation Clerk Relationship Specialty Start Date End Date Stella Knight MD [address] [phone] PCP - General Family Practice 07/16/13 documented as of this encounter
--- OUTSIDE RECORDS SUMMARY | 2025-05-06 13:12 | XMS_ITS | Encounter Summary ---
Author Organization [facility] Address [address] [place] [address] Care Team Providers Care Director Of Planning Name Role Phone Stella Knight MD Primary Care Provider Encounter Details Date Type Department Care Team (Late st Contact Info) Description 2004 Outpatient 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 Gender Identity Not on file Sexual Orientation Not on file documented as of this encounter Plan of Treatment Not on file documented as of this encounter Visit Diagnoses Not on filedocumented in this encounter Additional Health Concerns Infection Onset Date Last Indicated Resolved Time MRSA Comment:Wound 05/04/16 Resolved 05/07/2016 05/07/201609/17/ 8 8:46 AM CDT documented as of this encounter Care Teams Director Of Planning Relationship Specialty Start Date End Date Stella Knight MD [address] [facility] [address] [place] [phone] PCP - General Family Practice 07/16/13 documented as of this encounter
--- OUTSIDE RECORDS SUMMARY | 2025-05-06 13:12 | XMS_ITS | Encounter Summary ---
Author Organization [facility] Address [address] [place] [address] Care Team Providers Care Contract Mail Carrier Name Role Phone Stella Knight MD Primary Care Provider [phone] Encounter Details Date Type Department Care Team (Latest Contact Info) Description 06/30/2002 Outpatient Historical [facility] Medicine[address] [address] Byron Garg MD [address] [address] FX PHALANX, HAND NOS-CLOSE (Primary Dx) Social History Tobacco Use Types Packs/Day Years Used Date Smoking Tobacco: Never Assessed Sex and Gender Information Value Date Recorded Sex Assigned at Not on file 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 Gender Identity Not on file Sexual Orientation Not on file documented as of this encounter Plan of Treatment Not on file documented as of this encounter Visit Diagnoses Diagnosis Closed fracture of unspecified phalanx or phalanges of hand- Primary documented in this encounter Additional Health Concerns Infection Onset Date Last Indicated Resolved Time MRSA Comment:Wound 05/04/16 Resolved 05/07/2016 05/07/2016 8 8:46 AM CDT documented as of this encounter Care Teams Contract Mail Carrier Relationship Specialty Start Date End Date Stella Knight MD [address] [phone] PCP - General Family Practice 07/16/13 documented as of this encounter
--- OUTSIDE RECORDS SUMMARY | 2025-05-06 13:12 | XMS_ITS | Encounter Summary ---
Author Organization [facility] Address [address] [place] [address] Care Team Providers Care Lace Inspector Name Role Phone Stella Knight MD Primary Care Provider Encounter Details Date Type Department Care Team (Latest Contact Info) Description 07/28/2002 Outpatient Historical [facility] Medicine[address] [address] Byron Garg MD [address] [address] FX PHALANX, HAND NOS-CLOSE (Primary Dx) Social History Tobacco Use Types Packs/Day Years Used Date Smoking Tobacco: Never Assessed Sex and Gender Information Value Date Recorded Sex Assigned at Not on file 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
--- OUTSIDE RECORDS SUMMARY | 2025-05-06 13:12 | XMS_ITS | Encounter Summary ---
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 ANTICOAG USE (Primary Dx) Social History Tobacco Use Types Packs/Day Years Used Date Smoking Tobacco: Never Assessed Sex and Gender Information Value Date Recorded Sex Assigned at Not on file 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 Gender Identity Not on file Sexual Orientation Not on file documented as of this encounter Plan of Treatment Not on file documented as of this encounter Visit Diagnoses Diagnosis intermediate (current) use of anticoagulants- Primary Long-term (current) use of anticoagulants documented in this encounter Additional Health Concerns Infection Onset Date Last Indicated Resolved Time MRSA Comment:Wound 05/04/16 Resolved 05/07/2016 05/07/2016 8 8:46 AM CDT documented as of this encounter Care Teams Financial Examiner Relationship Specialty Start Date End Date Stella Knight MD [address] [phone] PCP - General Family Practice 07/16/13 documented as of this encounter
--- OUTSIDE RECORDS SUMMARY | 2025-05-06 13:12 | XMS_ITS | Encounter Summary ---
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 Gender Identity Not on file Sexual Orientation Not on file documented as of this encounter Plan of Treatment Not on file documented as of this encounter Visit Diagnoses Not on filedocumented in this encounter Additional Health Concerns Infection Onset Date Last Indicated Resolved Time MRSA Comment:Wound 05/04/16 Resolved 05/07/2016 05/07/201609/17/ 8 8:46 AM CDT documented as of this encounter Care Teams Group Leader Semiconductor Testing Relationship Specialty Start Date End Date Stella Knight MD [address] [phone] PCP - General Family Practice 07/16/13 documented as of this encounter
--- OUTSIDE RECORDS SUMMARY | 2025-05-06 13:12 | XMS_ITS | Encounter Summary ---
Author Organization 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 ANTICOAG USE Social History Tobacco Use Types Packs/Day Years Used Date Smoking Tobacco: Never Assessed Sex and Gender Information Value Date Recorded Sex Assigned at Not on file 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 Gender Identity Not on file Sexual Orientation Not on file documented as of this encounter Plan of Treatment Not on file documented as of this encounter Visit Diagnoses Diagnosis Elevated blood pressure reading without diagnosis of hypertension- Primary Lipoma of unspecified site terminal makeup operator (current) use of anticoagulants Long-term (current) use of anticoagulants documented in this encounter Additional Health Concerns Infection Onset Date Last Indicated Resolved Time MRSA Comment:Wound 05/04/16 Resolved 05/07/2016 05/07/2016 8 8:46 AM CDT documented as of this encounter Care Teams Chocolate Production Machine Operator Relationship Specialty Start Date End Date Stella Knight MD [address] [phone] PCP - General Family Practice 07/16/13 documented as of this encounter
--- OUTSIDE RECORDS SUMMARY | 2025-05-06 13:12 | XMS_ITS | Encounter Summary ---
Author Organization [facility] Address [address] [place] [address] Care Team Providers Care Message Clerk Name Role Phone Stella Knight MD Primary Care Provider Encounter Details Date Type Department Care Team (Late st Contact Info) Description 04/11/2018 Ancillary Orders [facility] [address] [place] [phone] Katelynn Markham, DEISI [address] [place] [phone] Social History Tobacco Use Types Packs/Day Years Used Date Smoking Tobacco: Former Cigarettes 0.5 5 Smokeless Tobacco: Former Alcohol Use Standard Drinks/Week Comments No 0 (1 standard drink = 0.6 oz pur e alcohol) Sex and Gender Information Value Date Recorded Sex Assigned at Not on file 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
--- OUTSIDE RECORDS SUMMARY | 2025-05-06 13:12 | XMS_ITS | Clinical Summary ---
Author Organization [facility] Address [address] [place] [address] Phone Care Team Providers Care Cash Register Balancer Name Role Phone Stella Knight MD Primary Care Provider Allergies No known active allergies Medications oxygen home delivery Face to Face completed within 30 days: yes Length of Need: 99 months By: Nasal Cannula Continuously at 3 L/min. portable. 1 Each 8 Active cholecalciferol , Vitamin D3, (VITAMIN D3) 1,000 unit Capsule TAKE 1 CAPSULE BY MOUTH DAILY. 90 Capsule 8 Active mupirocin (BACTROBAN) 2 % OintmentIndicat ions:Cellulitis of right lower extremity Apply to affected area daily. 15 Gram 1 8 Active sodium bicarbonate 650 mg tablet Take 650 mg by mouth 3 times daily. Active lancets (ONETOUCH DELICA LANCETS) 30 gauge 1 Each by [facility] [place] [facility].(Non-Drug; Combo Route) route daily before breakfast DX: e11.9. 100 Each 2 8 Active Blood-Glucose Meter Use as directed daily. Dx e11.9. 1 Device 8 Active clopidogrel (PLAVIX) 75 mg Tablet Take 1 Tablet (75 mg) by mouth daily. 90 Tablet 9 Active DOK 100 mg capsule TAKE 1 CAPSULE(100 MG) BY MOUTH TWICE DAILY 180 Capsule 9 Active tamsulosin (FLOMAX) 0.4 mg capsule TAKE 2 CAPSULES(0.8 MG) BY MOUTH DAILY AFTER SUPPER 180 Capsule 1 9 Active metFORMIN (GLUCOPHAGE) 1,000 mg tablet TAKE 1 TABLET BY MOUTH TWICE DAILY WITH MEALS. MAKE AN APPOINTMENT FOR LABS BEFORE NEXT REFILL. 180 Tablet 9 Active amLODIPine (NORVASC) 10 mg tablet TAKE 1 TABLET(10 MG) BY MOUTH DAILY 90 Tablet 3 9 Active metoprolol tartrate (LOPRESSOR) 25 mg tablet TAKE 1/2 TABLET(12.5 MG) BY MOUTH TWICE DAILY 90 Tablet 2 9 Active metFORMIN (GLUCOPHAGE) 1,000 mg tablet Take 1 Tablet (1,000 mg) by mouth 2 times daily with meals. 180 Tablet 2 9 Active cholecalciferol , Vitamin D3, (VITAMIN D3) 1,000 unit Capsule TAKE 1 CAPSULE BY MOUTH DAILY. 30 Capsule 9 Active DOK 100 mg capsule TAKE 1 CAPSULE(100 MG) BY MOUTH TWICE DAILY 60 Capsule 9 Active clopidogrel (PLAVIX) 75 mg Tablet TAKE 1 TABLET BY MOUTH ONCE DAILY. FOLLOW UP APPT NEEDED FOR FURTHER REFILLS. 7 Tablet 9 Active methylPREDNISol one (MEDROL DOSPACK) 4 mg Tablets, Dose Pack Take as directed 21 Tablet 0 Active simvastatin (ZOCOR) 40 mg tablet TAKE 1 TABLET BY MOUTH EVERY EVENING 7 Tablet 1 Active blood sugar diagnostic ([employer]uch Ultra Blue Test Strip) Strip USE TO TEST BLOOD SUGAR TWICE DAILY 50 Strip 1 Active Active Problems Problem Noted Date Diagnosed Date History of bladder cancer 05/05/2018 PVD (peripheral vascular disease) with claudicat ion 10/15/2017 Chronic respiratory failure 09/18/2017 Slurring of speech 09/16/2017 Right hemiparesis 09/15/2017 Essential hypertension 09/15/2017 Type 2 diabetes mellitus wit h hyperglycemia, without long-term current use of insulin 09/15/2017 COPD (chronic obstructive pulmonary disease) Obstructive sleep apnea 09/15/2017 Severe obesity (BMI 35.0-39.9) with comorbidity 09/15/2017 Tobacco use 09/15/2017 Overview (09/15/2017): cigars Hyperlipidemia 09/15/2017 Acute ischemic stroke LEFT internal capsule 08/29 Atonic bladder 06/04/2017 COPD (chronic obstructive pulmonary disease) 12/2016 Morbid obesity with body mass index of 40.0-49.9 05/07/2017 Overview (05/07/2017): Wt Readings from Last 3 Encounters: 05/07/17 121.1 kg (267 lb) 10/29/16 120.2 kg (265 lb) 09/04/16 120.2 kg (265 lb) Assessment & Plan (05/07/2017 2:21 PM RETAIL SALES PROFESSIONAL): Body mass index is 40.6 kg/m . BMI 40 or above: We talked about the role of morbid obesity in his current health conditions, risk of future morbidity/mortality and the importance of weight loss in improving these conditions and his overall health. Counseled regarding the benefits of a low calorie, well-balanced diet and daily exercise. Weight management options discussed. Rectal polyp 09/04/2016 Overview (09/04/2016): Pathology pending. Lipoma of skin and subcutaneous tissue of trunk 08/22/2016 Overview (08/22/2016): Smaller one located over the right shoulder blade. Bigger mass, presumably lipoma over right upper abdomen/right lower chest. Tobacco use 05/07/2016 Essential hypertension 05/07/2016 MRSA (methicillin resistant staph aureus) cultur e positive 05/04/2016 Bladder cancer 09/08/2015 UTI (urinary tract infection) 07/28/2015 Lower urinary tract symptoms (LUTS) 05/31/2015 Frequency of urination 05/31/2015 Nocturia 05/31/2015 Urgency of urination 05/31/2015 Urinary retention 05/31/2015 Uncontrolled type 2 diabetes mellitus, without long-term current use of insulin 08/20/2012 Overview (03/30/2016): Lab Results Component Value Date/Time HGBA1C 13.3* 02/22/2015 10:52 AM Lab Results Component Value Date/Time CHOLTOT 119 09/24/2014 09:47 AM HDL 23* 09/24/2014 09:47 AM LDLCALC 68 09/24/2014 09:47 AM TRIGLYCERIDE 138 09/24/2014 09:47 AM Lab Results Component Value Date/Time MICROALBUMIN 60.3 09/24/2014 09:48 AM MICRCREATR 528.9 09/24/2014 09:48 AM Assessment & Plan (05/11/2016 12:30 PM RETAIL SALES PROFESSIONAL): Diabetes: Poorly controlled. Medications reviewed and refilled/adjusted as indicated. See medication orders. Labs ordered/reviewed. Reminded to get yearly retinal exam. Encouraged aerobic exercise. Discussed symptoms and management of hypoglycemia. Assessment & Plan (05/04/2016 11:06 AM CDT): Diabetes: Poorly controlled. Pt. To schedule appt. For DM checkup Assessment & Plan (03/30/2016 9:44 AM CDT): Diabetes: Poorly controlled. Continue current plan of care. Medications reviewed and refilled/adjusted as indicated. See medication orders. Labs ordered/reviewed. Reminded to get yearly retinal exam. Addressed ADA/low CHO diet. Encouraged aerobic exercise. Stroke 10/06/2010 HTN (hypertension) 10/06/2010 Overview (05/07/2017): BP Readings from Last 3 Encounters: 05/07/17 (!) 154/94 10/29/16 (!) 132/92 09/04/16 116/87 Assessment & Plan (05/07/2017 2:18 PM RETAIL SALES PROFESSIONAL): Suboptimal control. Will adjust BP medication Hyperlipidemia 10/06/2010 Overview (05/07/2017): Lab Results Component Value Date/Time CHOLTOT 166 08/17/2016 08:16 AM CHOLTOT 169 05/08/2016 08:06 AM CHOLTOT 119 09/24/2014 09:47 AM HDL 27 (L) 08/17/2016 08:16 AM HDL 30 (L) 05/08/2016 08:06 AM HDL 23 (L) 09/24/2014 09:47 AM LDLCALC 117 (H) 08/17/2016 08:16 AM LDLCALC 108 (H) 05/08/2016 08:06 AM LDLCALC 68 09/24/2014 09:47 AM TRIGLYCERIDE 112 08/17/2016 08:16 AM TRIGLYCERIDE 153 (H) 05/08/2016 08:06 AM TRIGLYCERIDE 138 09/24/2014 09:47 AM Assessment & Plan (05/07/2017 2:19 PM RETAIL SALES PROFESSIONAL): Stable. Continue current medication Vertigo as late effect of stroke 10/06/2010 Right sided weakness Resolved Problems Problem Noted Date Diagnosed Date Resolved Date Screening for colon cancer 09/04/2016 0 09/04/2016 Malignant neoplasm of overla pping sites of bladder 07/05/2015 05/07/2017 Family History Medical History Relation Name Comments High Cholesterol Brother Heart Failure Father Heart Attack Mother Stroke Mother High Cholesterol Sister Relation Name Status Comments Brother Father Mother Sister Social History Tobacco Use Types Packs/Day Years Used Date Smoking Tobacco: Former Cigarettes 0.5 5 Smokeless Tobacco: Former Tobacco Cessation:Counseling Given: No Alcohol Use Standard Drinks/Week Comments No 0 (1 standard drink = 0.6 oz pur e alcohol) Sex and Gender Information Value Date Recorded Sex Assigned at Not on file Legal Sex Male 3:06 AM RETAIL SALES PROFESSIONAL Gender Identity Not on file Sexual Orientation Not on file Last Filed Vital Signs Vital Sign Reading Time Taken Comments Blood Pressure 118/75 02/27/2020 1:00 PM CDT Pulse 79 02/27/2020 12:50 PM CDT Temperature 36.2 C (97.2 F) 02/27/2020 1:00 PM CDT Respiratory Rate 16 02/27/2020 1:00 PM CDT Oxygen Saturation 92% 02/27/2020 1:00 PM CDT Inhaled Oxygen Concentration - - Weight 97.5 kg (215 lb) 02/27/2020 10:15 AM CDT Height 172.7 cm (5' 8 ) 02/27/2020 10:15 AM CDT Body Mass Index 32.69 02/27/2020 10:15 AM CDT Plan of Treatment Health Maintenance Due Date Last Done Comments FIT/ DNA Q 3 YEARS (AUTO ORDER) 1980 FIT/FOBT Q 1 YEAR (AUTO ORDER) 1980 FLEX SIG/CT COLONOGRAPHY Q 5 YEARS (AUTO ORDER) 1980 DTAP/TDAP/TD VACCINES (1 - Tdap) 1981 FIT-DNA Q 3 years 2007 FIT/FOBT Q 1 year 2007 Flex Sig/CT Colonography Q 5 years 2007 RSV VACCINE (60+ or ) (1 - Risk 50-74 years 1-dose series) 2012 ZOSTER VACCINE (1 of 2) 2012 DIABETES MICROALBUMIN ANNUAL SCREEN 05/13/2019 05/13/2018, 01/22/2018, 11/01/2017, Additional history exists DIABETES ANNUAL FOOT EXAM 12/17/20192018, 02/24/2018, 02/24/2018, Additional history exists LDL CHOLESTEROL ANNUAL 12/18/2019 9, 09/16/2017, 05/13/2017, Additional history exists DIABETES HBA1C Q 6 MONTHS 02/01/20202019, 12/17/2018, 12/17/2018, Additional history exists DIABETES ANNUAL RETINAL EXAM 02/06/202001/2019, 02/05/2018, 02/05/2018 (Previously completed), Additional history exists [place] Preventative Visit/Annual Wellness Visit 07/01/2024 INFLUENZA VACCINE (#1) 2025 04/04/2018 COLORECTAL CANCER SCREENING (AUTO ORDER) 09/04/2026 09/04/2016 COLORECTAL SCREENING 09/04/2026 09/04/2016 Colorectal Cancer Screening (AUTO ORDER) 09/04/2026 Colorectal Cancer Screening 09/04/2026 Procedures Procedure Name Priority Date/Time Associated Diagnosis Comments HEMOGLOBIN A1C Routine 08/03/2019 4:18 PM RETAIL SALES PROFESSIONAL Type 2 diabetes mellitus with hyperglycemia, without long-term current use of insulin (CMS/HCC) Benign hypertension LIPID PANEL Routine 12/17/2018 8:34 AM CDT Mixed hyperlipidemia MICROALBUMIN/CREATI NINE RATIO, RANDOM UR Routine 05/13/2018 12:19 PM RETAIL SALES PROFESSIONAL Proteinuria, unspecified type Diabetes mellitus (CMS/HCC) Hypertensive heart disease with congestive heart failure (CMS/HCC) HM DIABETES EYE EXAM Routine 02/05/2018 from Last 3 Months or Most Recently Relevant to Health Maintenance Results * (ABNORMAL) HEMOGLOBIN A1C (08/03/2019 4:18 PM RETAIL SALES PROFESSIONAL) HEMOGLOBIN A1C 5.9(H) <=5.6 % 08/03/2019 4:53 PM RETAIL SALES PROFESSIONAL [facility] EST. AVG GLUCOSE, A1C 123 mg/dL 08/03/2019 4:53 PM RETAIL SALES PROFESSIONAL [facility] Blood Venipuncture / Unknown 08/03/2019 4:18 PM RETAIL SALES PROFESSIONAL 08/03/2019 4:18 PM RETAIL SALES PROFESSIONAL [facility] - 08/03/2019 4:53 PM RETAIL SALES PROFESSIONAL HGB A1C INTERPRETATION NORMAL: <5.7% PRE-DIABETES: 5.7 - 6.4% DIABETES: 6.5% OR GREATER Fatimah Clark NP CHEMISTRY ORDERABLES Fi nal Result [facility] CLIA # [id number] [address] [place] [address] * (ABNORMAL) LIPID PANEL (12/17/2018 8:34 AM CDT) CHOLESTEROL 124 <200 mg/dL 12/17/2018 8:34 PM CDT [facility] TRIGLYCERIDE 52 <150 mg/dL 12/17/2018 8:34 PM CDT [facility] HDL 36(L) 40 - 59 mg/dL 12/17/2018 8:34 PM CDT [facility] LDL CALCULATED 78 <100 mg/dL 12/17/2018 8:34 PM CDT [facility] NON-HDL CHOLESTEROL 88 <130 mg/dL 12/17/2018 8:34 PM CDT [facility] Blood Venipuncture / Unknown 12/17/2018 8:34 AM CDT 12/17/2018 7:39 PM CDT [facility] - 12/17/2018 8:34 PM CDT TOTAL CHOLESTEROL mg/dL Desirable <200 Borderline high 200-239 High >=240 TRIGLYCERIDES mg/dL Normal <150 Borderline high 150-199 High 200-499 Very high >=500 HDL CHOLESTEROL mg/dL Low <40 Normal 40-59 Desirable >=60 NON HDL CHOLESTEROL mg/dL Optimal <130 Near Optimal 130-159 Borderline High 160-189 Very High >=190 Calculated LDL mg/dL Optimal <100 Near Optimal 100-129 Borderline High 130-159 High 160-189 Very High >=190 ATPIII Guidelines Reference Ranges for Lipid Panels (NCEP/AMA) Katelynn GREGGP CHEMISTRY ORDERABLES Final Result Performing Organization Address City/[facility] Co de Phone Number [facility] CLARIMIRIAM# [id number] [address] [place] [address] * (ABNORMAL) MICROALBUMIN/CREATININE RATIO, RANDOM UR (05/13/2018 12:19 PM RETAIL SALES PROFESSIONAL) MICROALBUMIN, URINE 3.6 No Reference Range mg/dL 05/13/2018 1:04 PM [facility] CREATININE, URINE 103.6 40.0 - 278.0 mg/dL 05/13/2018 1:04 PM [facility] Comment: Reference Range varies with fluid intake and diet. MICROALBUMIN/C REAT RATIO, UR 34.7(H) <17.0 mg/g 05/13/2018 1:04 PM [facility] Urine URINE SPECIMEN OBTAINED BY CLEAN CATCH PROCEDURE / Unknown Collection / Unknown 05/13/2018 12:19 PM RETAIL SALES PROFESSIONAL 05/13/2018 12:19 PM RETAIL SALES PROFESSIONAL [facility] - 05/13/2018 1:04 PM RETAIL SALES PROFESSIONAL Condition Microalbumin/Creat ratio Normal Males <17 Normal Females <25 Microalbuminuria Males 17-299 Microalbuminuria Females 25-299 Overt proteinuria >=300 Nito Franklin MD URINE ORDERABLES Final Resul t Performing Organization Address City/[facility] Co de Phone Number [facility] CLIA # [id number] [address] [place] [address] * DIABETES EYE EXAM (02/05/2018) us Abstract Spg Provider HEALTH MAINTENANCE Final R esult from Last 3 Months or Most Recently Relevant to Health Maintenance Insurance [place] [facility] Advance Directives For more information, please contact: [phone] * Full Code (Latest Code Status on File) Date Activated Date Inactivated Comments 09/18/2017 5:36 PM 10/11/2017 2:45 PM * Full Code Date Activated Date Inactivated Comments 09/15/2017 10:35 PM 09/18/2017 4:33 PM * Full Code Date Activated Date Inactivated Comments 09/15/2017 7:21 PM 09/15/2017 10:35 PM * Full Code Date Activated Date Inactivated Comments 09/04/2016 2:08 PM 09/04/2016 4:40 PM * Full Code Date Activated Date Inactivated Comments 09/04/2016 12:07 PM 09/04/2016 2:08 PM Care Teams Cash Register Balancer Relationship Specialty Start Date End Date Stella Knight MD [address] [phone] PCP - General Family Practice 07/16/13
--- OUTSIDE RECORDS SUMMARY | 2025-05-06 13:12 | XMS_ITS | Encounter Summary ---
Author Organization [facility] Address [address] [place] [address] Care Team Providers Care Warehouse Unloader Name Role Phone Stella Knight MD Primary Care Provider Encounter Details Date Type Department Care Team (Latest Contact Info) Description 07/07/2002 Outpatient Historical [facility] Medicine[address] [address] Byron Garg MD [address] [address] FX PHALANX, HAND NOS-CLOSE (Primary Dx) Social History Tobacco Use Types Packs/Day Years Used Date Smoking Tobacco: Never Assessed Sex and Gender Information Value Date Recorded Sex Assigned at Not on file Legal Sex Male 3:06 AM HEALTH TECHNICAL WRITER Gender Identity Not on file Sexual Orientation [...] documented as of this encounter Care Teams Warehouse Unloader Relationship Specialty Start Date End Date Stella Knight MD [address] [phone] PCP - General Family Practice 07/16/13 documented as of this encounter
--- OUTSIDE RECORDS SUMMARY | 2025-05-06 13:12 | XMS_ITS | Encounter Summary ---
Author Organization [facility] Address [address] [place] [address] Care Team Providers Care Technologies Division Chair Name Role Phone Stella Knight MD Primary Care Provider Encounter Details Date Type Department Care Team (Late st Contact Info) Description 03/23/2015 Ancillary Orders [facility] [address] [place] [phone] Katelynn Markham, FARM IMPLEMENT ENGINE MECHANIC [address] [place] [phone] Social History Tobacco Use Types Packs/Day Years Used Date Smoking Tobacco: Former Cigarettes 0.5 5 0 03/20/2004 - 03/20/2009 Alcohol Use Standard Drinks/Week Comments No 0 (1 standard drink = 0.6 oz pur e alcohol) Sex and Gender Information Value Date Recorded Sex Assigned at Not on file Legal Sex Male 3:06 AM CONSTRUCTION FIELD ENGINEER Gender Identity Not on file Sexual Orientation Not on file documented as of this encounter Plan of Treatment Not on file documented as of this encounter Visit Diagnoses Not on filedocumented in this encounter Additional Health Concerns Infection Onset Date Last Indicated Resolved Time MRSA Comment:Wound 05/04/16 Resolved 05/07/2016 05/07/201609/17/ 8 8:46 AM CDT documented as of this encounter Care Teams Technologies Division Chair Relationship Specialty Start Date End Date Stella Knight MD [address] [phone] PCP - General Family Practice 07/16/13 documented as of this encounter
--- OUTSIDE RECORDS SUMMARY | 2025-05-06 13:12 | XMS_ITS | Encounter Summary ---
Author Organization [facility] Address [address] Attn: Epic Prelude ADT [place] [address] Care Team Providers Care Carpet Inspector Name Role Phone Non-Staff, Physician Primary Care Provider Unava ilable Encounter Details Date Type Department Care Team (Latest Contact Info) Description 05/04/2025 Travel Social History Tobacco Use Types Packs/Day Years [...] worry about transportation for future doctor visits, car pick up driver medication, etc.? No 2024 Housing Stability Answer [...] on file Legal Sex Male 6:36 AM TRANSPORT COORDINATOR Gender Identity Not on file Sexual Orientation Not on file documented as of this encounter Plan of Treatment Not on file documented as of this encounter Visit Diagnoses Not on filedocumented in this encounter Care Teams Carpet Inspector Relationship Specialty Start Date End Date Non-Staff, Physician NO ADDRESS ON FILE PCP - General 08/07/21 documented as of this encounter
--- OUTSIDE RECORDS SUMMARY | 2025-05-06 13:12 | XMS_ITS | Encounter Summary ---
Author Organization [facility] Address [address] [place] [address] Care Team Providers Care Meat Loiner Name Role Phone Stella Knight MD Primary Care Provider Encounter Details Date Type Department Care Team (Latest Contact Info) Description 2004 Outpatient Historical [facility] Medicine[address] [address] Hero Vo MD [address] [place] [address] [facility]CARE ALF ANTICOAG USE (Primary Dx) Social History Tobacco Use Types Packs/Day Years Used Date Smoking Tobacco: Never Assessed Sex and Gender Information Value Date Recorded Sex Assigned at Not on file Legal Sex Male 3:06 AM CONTACT WORKER Gender Identity Not on file Sexual Orientation Not on file documented as of this encounter Plan of Treatment Not on file documented as of this encounter Visit Diagnoses Diagnosis [facility] (current) use of anticoagulants- Primary Long-term (current) use of anticoagulants documented in this encounter Additional Health Concerns Infection Onset Date Last Indicated Resolved Time MRSA Comment:Wound 05/04/16 Resolved 05/07/2016 05/07/2016 8 8:46 AM CDT documented as of this encounter Care Teams Meat Loiner Relationship Specialty Start Date End Date Stella Knight MD [address] [phone] PCP - General Family Practice 07/16/13 documented as of this encounter
--- OUTSIDE RECORDS SUMMARY | 2025-05-06 13:12 | XMS_ITS | Encounter Summary ---
Author Organization [facility] Address [address] [place] [address] Care Team Providers Care Blasting Entry Specialist Name Role Phone Stella Knight MD Primary Care Provider [phone] Reason for Referral * Outpatient Services (Routine) - Closed Specialty Diagnoses / Procedures Referred By Contantwon cesar Referred To Contact Diagnoses Pain Procedures XR FLUORO LESS THAN 1 HOUR Silviano Melendez MD Phone: tel: fax: Referral ID Status Reason Start Date Expiration Date Visits Re quested Visits Authorized [id number] Closed 12/15/2015 01/14/2017 1 1 Encounter Details Date Type Department Care Team (Late st Contact Info) Description 12/15/2015 Ancillary Orders [facility] Radiology [place] [address] [place] [address] Silviano Melendez MD [address] [address] Pain (Primary Dx) Social History Tobacco Use Types Packs/Day Years Used Date Smoking Tobacco: Former Cigarettes 0.5 5 0 03/20/2004 - 03/20/2009 Smokeless Tobacco: Never Alcohol Use Standard Drinks/Week Comments No 0 (1 standard drink = 0.6 oz pur e alcohol) Sex and Gender Information Value Date Recorded Sex Assigned at Not on file Legal Sex Male 3:06 AM ART TRACER Gender Identity Not on file Sexual Orientation Not on file documented as of this encounter Plan of Treatment Not on file documented as of this encounter Results * XR FLUORO LESS THAN 1 HOUR (12/15/2015 10:46 AM CDT) Narrative Kati Ni, RT - 12/15/2015 11:31 PM CDT Order information only. Exam was auto-finalized. us Silviano Melendez MD DIAGNOSTIC IMAGING DAIJA TORRES Final Result documented in this encounter Visit Diagnoses Diagnosis Pain- Primary Generalized pain Pain Generalized pain documented in this encounter Additional Health Concerns Infection Onset Date Last Indicated Resolved Time MRSA Comment:Wound 05/04/16 Resolved 05/07/2016 05/07/201609/17/ 8 8:46 AM CDT documented as of this encounter Care Teams Blasting Entry Specialist Relationship Specialty Start Date End Date Stella Knight MD [address] [phone] PCP - General Family Practice 07/16/13 documented as of this encounter
--- OUTSIDE RECORDS SUMMARY | 2025-05-06 13:12 | XMS_ITS | Clinical Summary ---
Author Organization [facility] Address [address] [place] [address] Phone Care Team Providers Care Customer Support Professional Name Role Phone Non-Staff, Physician Primary Care Provider Unava ilable Allergies No known active allergies Medications clopidogreL (PLAVIX) 75 mg Tablet Take 1 Tablet (75 mg) by mouth daily. 90 Tablet 0 9 Active lancets 30 gauge 1 Each by [facility].(Non-Drug; Combo Route) route daily before breakfast DX: e11.9. 100 Each 2 8 Active Blood-Glucose Meter Use as directed daily. Dx e11.9. 1 Device 0 8 Active docusate sodium (DOK) 100 mg capsule TAKE 1 CAPSULE(100 MG) BY MOUTH TWICE DAILY 60 Capsule 0 9 Active metFORMIN (GLUCOPHAGE) 1,000 mg tablet TAKE 1 TABLET BY MOUTH TWICE DAILY WITH MEALS. MAKE AN APPOINTMENT FOR LABS BEFORE NEXT REFILL. 180 Tablet 0 9 Active tamsulosin (FLOMAX) 0.4 mg capsule TAKE 2 CAPSULES(0.8 MG) BY MOUTH DAILY AFTER SUPPER 180 Capsule 1 9 Active methylPREDNISolo ne (MEDROL DOSPACK) 4 mg Tablets, Dose Pack Take as directed 21 Tablet 0 0 Active simvastatin (ZOCOR) 40 mg tablet TAKE 1 TABLET BY MOUTH EVERY EVENING 7 Tablet 0 1 Active amLODIPine (NORVASC) 10 mg tablet TAKE 1 TABLET(10 MG) BY MOUTH DAILY 90 Tablet 3 9 Active metoprolol tartrate (LOPRESSOR) 25 mg tablet TAKE 1/2 TABLET(12.5 MG) BY MOUTH TWICE DAILY 90 Tablet 2 9 Active metFORMIN (GLUCOPHAGE) 1,000 mg tablet Take 1 Tablet (1,000 mg) by mouth 2 times daily with meals. 180 Tablet 2 9 Active cholecalciferol, Vitamin D3, (VITAMIN D3) 25 mcg (1,000 unit) Capsule TAKE 1 CAPSULE BY MOUTH DAILY. 90 Capsule 0 8 Active mupirocin (BACTROBAN) 2 % OintmentIndicati ons:Cellulitis of right lower extremity Apply to affected area daily. 15 Gram 1 8 Active sodium bicarbonate 650 mg tablet Take 650 mg by mouth 3 times daily. 8 Active blood sugar diagnostic Strip USE TO TEST BLOOD SUGAR TWICE DAILY 50 Strip 0 1 Active HYDROcodone-acet aminophen (NORCO) 5-325 mg tabletIndication s:Contusion of right lower leg, initial encounter Take 1-2 Tablets by mouth every 6 hours as needed for Pain. Max Daily Amount: 8 Tablets 30 Tablet 5 Active Active Problems Problem Noted Date Diagnosed Date History of bladder cancer 05/05/2018 PVD (peripheral vascular disease) with claudicat ion 10/15/2017 Chronic respiratory failure 09/18/2017 Slurring of speech 09/16/2017 Hyperlipidemia 09/15/2017 Tobacco use 09/15/2017 Overview (10/27/2020): cigars Essential hypertension 09/15/2017 COPD (chronic obstructive pulmonary disease) Type 2 diabetes mellitus wit h hyperglycemia, without long-term current use of insulin 09/15/2017 Obstructive sleep apnea 09/15/2017 Acute ischemic stroke LEFT internal capsule 08/29 Right hemiparesis 09/15/2017 Severe obesity (BMI 35.0-39.9) with comorbidity 09/15/2017 Atonic bladder 06/04/2017 Morbid obesity with body mass index of 40.0-49.9 05/07/2017 Overview (10/27/2020): Wt Readings from Last 3 Encounters: 05/07/17 121.1 kg (267 lb) 10/29/16 120.2 kg (265 lb) 09/04/16 120.2 kg (265 lb) Rectal polyp 09/04/2016 Overview (10/27/2020): Pathology pending. Lipoma of skin and subcutaneous tissue of trunk 08/22/2016 Overview (10/27/2020): Smaller one located over the right shoulder blade. Bigger mass, presumably lipoma over right upper abdomen/right lower chest. MRSA (methicillin resistant staph aureus) cultur e positive 05/04/2016 Bladder cancer 09/08/2015 UTI (urinary tract infection) 07/28/2015 Frequency of urination 05/31/2015 Urgency of urination 05/31/2015 Nocturia 05/31/2015 Lower urinary tract symptoms (LUTS) 05/31/2015 Urinary retention 05/31/2015 Uncontrolled type 2 diabetes mellitus, without long-term current use of insulin 08/20/2012 Overview (10/27/2020): Lab Results Component Value Date/Time HGBA1C 13.3* 02/22/2015 10:52 AM Lab Results Component Value Date/Time CHOLTOT 119 09/24/2014 09:47 AM HDL 23* 09/24/2014 09:47 AM LDLCALC 68 09/24/2014 09:47 AM TRIGLYCERIDE 138 09/24/2014 09:47 AM Lab Results Component Value Date/Time MICROALBUMIN 60.3 09/24/2014 09:48 AM MICRCREATR 528.9 09/24/2014 09:48 AM HTN (hypertension) 10/06/2010 Overview (10/27/2020): BP Readings from Last 3 Encounters: 05/07/17 (!) 154/94 10/29/16 (!) 132/92 09/04/16 116/87 Vertigo as late effect of stroke 10/06/2010 Stroke 10/06/2010 Right sided weakness Resolved Problems Problem Noted Date Diagnosed Date Resolved Date Screening for colon cancer 09/04/2016 0 09/04/2016 Malignant neoplasm of overla pping sites of bladder 07/05/2015 05/07/2017 Encounters Date Type Department Care Team Description 05/04/2025 2:23 AM INTERNET SPECIALIST - 05/04/2025 4:35 AM INTERNET SPECIALIST Emergency [facility] Emergency Medicine [address] [place] [address] Ab Olmos MD Contusion of right lower leg, initial encounter (Primary Dx) Discharge Disposition: Home or Self Care 05/04/2025 Travel 03/24/2025 Telephone [place] [address] [place] [address] Hero Martinez NP No Show 03/23/2025 External Device Data STL ABSTRACTION Provider, Abstract 03/16/2025 External Device Data STL ABSTRACTION Provider, Abstract 02/16/2025 External Device Data STL ABSTRACTION Provider, Abstract 02/16/2025 External Device Data STL ABSTRACTION Provider, Abstract 02/09/2025 External Device Data STL ABSTRACTION Provider, Abstract from Last 3 Months Immunizations Immunization Administration Dates Next Due ([facility])(12 YR UP) COVID-19 VACCINE - EMERGENCY USE AUTHORIZATION, MRNA, [id number](PF) 30 MCG/0.3 ML IM SUSP 02/09/2021,01/19/2021 Family History Medical History Relation Name Comments High Cholesterol Brother Heart Failure Father Heart Attack Mother Stroke Mother High Cholesterol Sister Relation Name Status Comments Brother Father Mother Sister Social History Tobacco Use Types Packs/Day Years Used Date Smoking Tobacco: Former Cigarettes Smokeless Tobacco: Former Tobacco Cessation:Counseling Given: No [...] worry about transportation for future doctor visits, mushroom picker medication, etc.? No 2024 Housing Stability Answer [...] on file Legal Sex Male 6:36 AM INTERNET SPECIALIST Gender Identity Not on file Sexual Orientation Not on file Last Filed Vital Signs Vital Sign Reading Time Taken Comments Blood Pressure 131/88 05/04/2025 4:00 AM INTERNET SPECIALIST Pulse 99 05/04/2025 4:00 AM INTERNET SPECIALIST Temperature 36.7 C (98.1 F) 05/04/2025 2:43 AM INTERNET SPECIALIST Respiratory Rate 18 05/04/2025 4:00 AM INTERNET SPECIALIST Oxygen Saturation 95% 05/04/2025 4:00 AM INTERNET SPECIALIST Inhaled Oxygen Concentration - - Weight 107.9 kg (237 lb 14.4 oz) 05/04/2025 2:43 AM INTERNET SPECIALIST Height 172.7 cm (5' 8 ) 05/04/2025 2:43 AM INTERNET SPECIALIST Body Mass Index 36.17 05/04/2025 2:43 AM INTERNET SPECIALIST Plan of Treatment Health Maintenance Due Date Last Done Comments DTAP/TDAP/TD VACCINES (1 - Tdap) 1981 FIT-DNA Q 3 years 2007 FIT/FOBT Q 1 year 2007 Flex Sig/CT Colonography Q 5 years 2007 RSV VACCINE (60+ or ) (1 - Risk 50-74 years 1-dose series) 2012 ZOSTER VACCINE (1 of 2) 2012 DIABETES MICROALBUMIN ANNUAL SCREEN 05/13/2019 05/13/2018, 01/22/2018, 11/01/2017, Additional history exists DIABETES ANNUAL FOOT EXAM 12/17/20192018, 02/24/2018, 08/15/2016, Additional history exists LDL CHOLESTEROL ANNUAL 12/18/2019 9, 09/16/2017, 05/13/2017, Additional history exists DIABETES ANNUAL RETINAL EXAM 02/06/202001/2019, 02/05/2018, 02/05/2018, Additional history exists DIABETES HBA1C Q 6 MONTHS 09/14/20242023, 08/03/2019, 08/03/2019, Additional history exists INFLUENZA VACCINE (#1) 2025 04/04/2018 COVID-19 Vaccine ( - 2024-2 6 season) 2025 02/09/2021, 01/19/2021 COLORECTAL SCREENING 09/04/2026 09/04/2016 Colorectal Cancer Screening 09/04/2026 Abdominal Aortic Aneurysm (A AA) Screening Completed 04/01/2015 Procedures Procedure Name Priority Date/Time Associated Diagnosis Comments XR FEMUR 2 VW RIGHT Stat 05/04/2025 3 :29 AM INTERNET SPECIALIST XR TIBIA AND FIBULA 2 VW RIGHT Stat 05/04/2025 3:29 AM INTERNET SPECIALIST XR FOOT 3+ VW RIGHT Stat 05/04/2025 3 :29 AM INTERNET SPECIALIST HEMOGLOBIN A1C Routine 03/17/2024 LIPID PANEL Routine 12/17/2018 8:34 AM CDT MICROALBUMIN/CREATIN INE RATIO, RANDOM UR Routine 05/13/2018 12:19 PM INTERNET SPECIALIST HM DIABETES EYE EXAM 02/05/2018 12:[address] ABDOMEN PELVIS WO CONTRAST Stat 04/01/2015 2:41 PM CDT Cystitis Hydronephrosis of right kidney from Last 3 Months or Most Recently Relevant to Health Maintenance Results * XR FEMUR 2 VW RIGHT (05/04/2025 3:29 AM INTERNET SPECIALIST) Anatomical Region Laterality Modality Lower Extremity Computed Radiogr aphy 05/04/2025 3:30 AM INTERNET SPECIALIST Impressions 05/04/2025 3:58 AM INTERNET SPECIALIST IMPRESSION: Negative for an acute bony abnormality. . Narrative 05/04/2025 3:58 AM INTERNET SPECIALIST EXAM: XR FEMUR 2 VW RIGHT DATE/TIME [...] Negative for an acute bony abnormality. . us Ab Olmos MD DIAGNOSTIC IMAGING ORDER MANDEEP Final Result * XR TIBIA AND FIBULA 2 VW RIGHT (05/04/2025 3:29 AM INTERNET SPECIALIST) Anatomical Region Laterality Modality Lower Extremity Computed Radiogr aphy 05/04/2025 3:29 AM INTERNET SPECIALIST Impressions 05/04/2025 3:57 AM INTERNET SPECIALIST IMPRESSION: No acute displaced fracture. Diffuse edema of the right lower extremity. . Narrative 05/04/2025 3:57 AM INTERNET SPECIALIST EXAM: XR TIBIA AND FIBULA 2 VW [...] edema of the right lower extremity. . us Ab Olmos MD DIAGNOSTIC IMAGING ORDER MANDEEP Final Result * XR FOOT 3+ VW RIGHT (05/04/2025 3:29 AM INTERNET SPECIALIST) Anatomical Region Laterality Modality Ankle / Foot Computed Radiogr aphy 05/04/2025 3:29 AM INTERNET SPECIALIST Impressions 05/04/2025 3:57 AM INTERNET SPECIALIST IMPRESSION: Lucency in the plantar forefoot. Finding is suggestive of ulceration. Severe soft tissue swelling of the dorsal forefoot. Lucency along the radial cortex of the third proximal phalanx. Finding may represent osteomyelitis. Recommend MRI of the foot. . Narrative 05/04/2025 3:57 AM INTERNET SPECIALIST EXAM: XR FOOT 3+ VW RIGHT DATE/TIME [...] osteomyelitis. Recommend MRI of the foot. . Ab Olmos MD DIAGNOSTIC IMAGING ORDER MANDEEP Final Result * (ABNORMAL) HEMOGLOBIN A1C (03/17/2024) ABSTRACTED HGB A1C 6.6 % Blood us Abstract Provider CHEMISTRY ORDERABLES Edited Re sult - Final * (ABNORMAL) LIPID PANEL (12/17/2018 8:34 AM CDT) CHOLESTEROL 124 <200 mg/dL 12/17/2018 8:34 PM CDT [facility] TRIGLYCERIDE 52 <150 mg/dL 12/17/2018 8:34 PM CDT [facility] HDL 36(L) 40 - 59 mg/dL 12/17/2018 8:34 PM CDT [facility] LDL CALCULATED 78 <100 mg/dL 12/17/2018 8:34 PM CDT [facility] NON-HDL CHOLESTEROL 88 <130 mg/dL 12/17/2018 8:34 PM CDT [facility] Blood Venipuncture / Unknown 12/17/2018 8:34 AM CDT 12/17/2018 7:39 PM CDT Narrative [facility] - 12/17/2018 8:34 PM CDT TOTAL CHOLESTEROL mg/dL Desirable<200 Borderline [id number] High>=240 TRIGLYCERIDES mg/dL Normal<150 Borderline [id number] Very high>=500 HDL CHOLESTEROL mg/dL Low<40 [id number] Desirable>=60 NON HDL CHOLESTEROL mg/dL Optimal<130 Near [id number] Borderline [id number] Very High>=190 Calculated LDL mg/dL Optimal<100 Near [id number] Borderline [id number] [id number] Very High>=190 ATPIII Guidelines Reference Ranges for Lipid Panels (NCEP/AMA) Katelynn Markham STOCKROOM ASSOCIATE CHEMISTRY ORDERABLES Final Result [facility] CLIA# [id number] [facility] [place] [address] * (ABNORMAL) MICROALBUMIN/CREATININE RATIO, RANDOM UR (05/13/2018 12:19 PM INTERNET SPECIALIST) MICROALBUMIN, URINE 3.6 No Reference Range mg/dL 05/13/2018 1:04 PM [facility] CREATININE, URINE 103.6 40.0 - 278.0 mg/dL 05/13/2018 1:04 PM [facility] Comment: Reference Range varies with fluid intake and diet. MICROALBUMIN/C REAT RATIO, UR 34.7(H) <17.0 mg/g 05/13/2018 1:04 PM INTERNET SPECIALIST [facility] Urine URINE SPECIMEN OBTAINED BY CLEAN CATCH PROCEDURE / Unknown Collection / Unknown 05/13/2018 12:19 PM INTERNET SPECIALIST 05/13/2018 12:19 PM INTERNET SPECIALIST Narrative [facility] - 05/13/2018 1:04 PM INTERNET SPECIALIST Condition Microalbumin/Creat ratio Normal Males <17 Normal Females <25 Microalbuminuria Males 17-299 Microalbuminuria Females 25-299 Overt proteinuria >=300 us Nito Franklin MD URINE ORDERABLES Final Resul t [facility] CLIA # [id number] [address] [place] [address] [facility] CLIA # [id number] [address] [place] [address] * DIABETES EYE EXAM (02/05/2018 12:00 AM CDT) us [facility] Scanning HEALTH MAINTENANCE Final Result * CT ABDOMEN PELVIS WO CONTRAST (04/01/2015 2:41 PM CDT) Anatomical Region Laterality Modality Abdomen Other Narrative 04/02/2015 10:[address] ABDOMEN and PELVIS, non-contrast, 01 April 2015 TECHNIQUE With the patient supine in the scanning gantry, with no oral or IV contrast administered, helical axial imaging was obtained from above the diaphragm through the pelvis at 5 mm increments for 102 axial images. Sagittal and coronal reconstructions are also obtained. DESCRIPTION The urinary bladder is thickwalled with perivesical fat induration extending up to 7 cm from the dome of the urinary bladder anteriorly and laterally, more so on the left. The induration extends to the umbilicus. There is mild right hydronephrosis and hydroureter extending to the urinary bladder without evidence of ureteral calculus. Left upper tract remains unremarkable. There is some parenchymal scarring of the right kidney. No nephrolithiasis is seen. The heart appears mildly enlarged. Lung bases show no infiltrate or effusion. There is 4.6 x 1.0 cm pleural thickening or scarring posterior laterally in the right lung base, incompletely imaged. Nondistended stomach appears unremarkable. Unenhanced liver appears unremarkable. Gallbladder appears unremarkable. Unenhanced spleen appears unremarkable. Unenhanced pancreas appears unremarkable. Unenhanced adrenal glands appear normal. The small bowel shows no obstructive distention or significant air-fluid level. Appendix is identified without inflammatory change seen. Colon shows moderate fecal artifact with no pericolic inflammatory change seen. Pelvic structures appear otherwise unremarkable. No free fluid, free air, or adenopathy are seen. There is mild osteoarthritis of the spine. No abdominal wall hernia is seen. IMPRESSION 1. bladder wall thickening with perivesical fat induration as noted 2. right hydronephrosis and hydroureter without calculi COMMENT reported to Dr. Chamberlain in the ER at 1458 hours, 01 April 2015 Procedure Note Hector Moyer MD - 11/14/[address] ABDOMEN and PELVIS, non-contrast, 01 April 2015 TECHNIQUE With the patient supine in the scanning gantry, with no oral or IV contrast administered, helical axial imaging was obtained from above the diaphragm through the pelvis at 5 mm increments for 102 axial images. Sagittal and coronal reconstructions are also obtained. DESCRIPTION The urinary bladder is thickwalled with perivesical fat induration extending up to 7 cm from the dome of the urinary bladder anteriorly and laterally, more so on the left. The induration extends to the umbilicus. There is mild right hydronephrosis and hydroureter extending to the urinary bladder without evidence of ureteral calculus. Left upper tract remains unremarkable. There is some parenchymal scarring of the right kidney. No nephrolithiasis is seen. The heart appears mildly enlarged. Lung bases show no infiltrate or effusion. There is 4.6 x 1.0 cm pleural thickening or scarring posterior laterally in the right lung base, incompletely imaged. Nondistended stomach appears unremarkable. Unenhanced liver appears unremarkable. Gallbladder appears unremarkable. Unenhanced spleen appears unremarkable. Unenhanced pancreas appears unremarkable. Unenhanced adrenal glands appear normal. The small bowel shows no obstructive distention or significant air-fluid level. Appendix is identified without inflammatory change seen. Colon shows moderate fecal artifact with no pericolic inflammatory change seen. Pelvic structures appear otherwise unremarkable. No free fluid, free air, or adenopathy are seen. There is mild osteoarthritis of the spine. No abdominal wall hernia is seen. IMPRESSION 1. bladder wall thickening with perivesical fat induration as noted 2. right hydronephrosis and hydroureter without calculi COMMENT reported to Dr. Chamberlain in the ER at 1458 hours, 01 April [address] Chamberlain MD CT ORDERABLES Final Result from Last 3 Months or Most Recently Relevant to Health Maintenance Insurance MEDICAID [place] Care Teams Customer Support Professional Relationship Specialty Start Date End Date Non-Staff, Physician NO ADDRESS ON FILE PCP - General 08/07/21
--- OUTSIDE RECORDS SUMMARY | 2025-05-06 13:12 | XMS_ITS | Encounter Summary ---
Author Organization [facility] Address [address] [place] [address] Care Team Providers Care System Developer Associate Manager Name Role Phone Stella Knight MD Primary Care Provider [phone] Encounter Details Date Type Department Care Team (Late st Contact Info) Description 03/23/2015 Ancillary Orders [facility] [address] [place] [phone] Katelynn Markham, ELECTRODE TURNER AND FINISHER [address] [place] [phone] Right knee pain (Primary Dx) Social History Tobacco Use Types Packs/Day Years Used Date Smoking Tobacco: Former Cigarettes 0.5 5 0 03/20/2004 - 03/20/2009 Alcohol Use Standard Drinks/Week Comments No 0 (1 standard drink = 0.6 oz pur e alcohol) Sex and Gender Information Value Date Recorded Sex Assigned at Not on file Legal Sex Male 3:06 AM INSEMINATION WORKER Gender Identity Not on file Sexual Orientation Not on file documented as of this encounter Plan of Treatment Not on file documented as of this encounter Results * XR KNEE 3 VW BILAT (03/23/2015 12:50 PM CDT) Anatomical Region Laterality Modality Lower Extremity Computed Radiogr aphy 03/23/2015 12:3 7 PM CDT Narrative 03/24/2015 8:23 AM CDT PROCEDURE XR BILATERAL KNEE, 3 views x2, 23 March 2015 DESCRIPTION AP, oblique, and lateral weight-bearing views of the knees show no acute fracture, dislocation, or deformity. No joint effusion is appreciated. No significant osteophyte formation is seen. There is approximately a centimeter lateral subluxation of the tibia on the right. IMPRESSION 1. lateral subluxation of the tibia on the right suggesting ligamentous laxity or the disruption 2. no acute fracture or significant degenerative change Procedure Note Hector Moyer MD - 03/24/2015 PROCEDURE XR BILATERAL KNEE, 3 views x2, 23 March 2015 DESCRIPTION AP, oblique, and lateral weight-bearing views of the knees show no acute fracture, dislocation, or deformity. No joint effusion is appreciated. No significant osteophyte formation is seen. There is approximately a centimeter lateral subluxation of the tibia on the right. IMPRESSION 1. lateral subluxation of the tibia on the right suggesting ligamentous laxity or the disruption 2. no acute fracture or significant degenerative change Katelynn Markham ELECTRODE TURNER AND FINISHER DIAGNOSTIC IMAGING ORDERABL ES Final Result documented in this encounter Visit Diagnoses Diagnosis Right knee pain Pain in joint, lower leg Right knee pain- Primary Pain in joint, lower leg documented in this encounter Additional Health Concerns Infection Onset Date Last Indicated Resolved Time MRSA Comment:Wound 05/04/16 Resolved 05/07/2016 05/07/2016 8 8:46 AM CDT documented as of this encounter Care Teams System Developer Associate Manager Relationship Specialty Start Date End Date Stella Knight MD [address] [phone] PCP - General Family Practice 07/16/13 documented as of this encounter
--- OUTSIDE RECORDS SUMMARY | 2025-05-06 13:12 | XMS_ITS | Encounter Summary ---
Author Organization [facility] Address [address] [place] [address] Care Team Providers Care Honing Machine Operator Semiautomatic Name Role Phone Stella Knight MD Primary Care Provider Encounter Details Date Type Department Care Team (Latest Contact Info) Description 07/14/2002 Outpatient Historical [facility] [address] [address] [place] Garg MD [address] [address] FX PHALANX, HAND NOS-CLOSE (Primary Dx) Social History Tobacco Use Types Packs/Day Years Used Date Smoking Tobacco: Never Assessed Sex and Gender Information Value Date Recorded Sex Assigned at Not on file Legal Sex Male 3:06 AM LACE SEWER Gender Identity Not on file Sexual Orientation [...] documented as of this encounter Care Teams Honing Machine Operator Semiautomatic Relationship Specialty Start Date End Date Stella Knight MD [address] [phone] PCP - General Family Practice 07/16/13 documented as of this encounter
--- OUTSIDE RECORDS SUMMARY | 2025-05-06 13:12 | XMS_ITS ---
Author Organization [facility] Address [address] [place] [address] Phone Care Team Providers Care Prime Broker Name Role Phone Stella Knight MD Primary Care Provider Active Problems Problem Noted Date Diagnosed Date [...] lb) Assessment & Plan (05/07/2017 2:21 PM MASTER SCHEDULER): Body mass index is 40.6 kg/m . [...] AM Assessment & Plan (05/11/2016 12:30 PM MASTER SCHEDULER): Diabetes: Poorly controlled. Medications reviewed and refilled/adjusted [...] 116/87 Assessment & Plan (05/07/2017 2:18 PM MASTER SCHEDULER): Suboptimal control. Will adjust BP medication Hyperlipidemia [...] AM Assessment & Plan (05/07/2017 2:19 PM MASTER SCHEDULER): Stable. Continue current medication Vertigo as late effect of stroke 10/06/2010 Right sided weakness Current Treatment and Therapy Plans No current plan information found. Past Treatment and Therapy Plans No past plan information found. Lifetime Dose Tracking * Chemical Lifetime Dose Automatic Entry Manual Entr y Effective Dose 16 mSv 16 mSv 0 mSv Total DLP 3,831 DLP 3,831 DLP 0 DLP CTDIvol Max 130.1 mGy 130.1 mGy 0 mGy CTDIvol Min 11.8 mGy 11.8 mGy 0 mGy Resolved Problems Problem Noted Date Diagnosed Date Resolved Date Screening for colon cancer 09/04/2016 0 09/04/2016 Malignant neoplasm of overla pping sites of bladder 07/05/2015 05/07/2017
--- OUTSIDE RECORDS SUMMARY | 2025-05-06 13:12 | XMS_ITS ---
Author Organization [facility] Address [address] [place] [address] Phone Care Team Providers Care Academic Affairs Specialist Name Role Phone Non-Staff, Physician Primary Care Provider Unava ilable Active Problems Problem Noted Date Diagnosed Date [...] stroke 10/06/2010 Stroke 10/06/2010 Right sided weakness Current Treatment and Therapy Plans No current plan information found. Past Treatment and Therapy Plans No past plan information found. Lifetime Dose Tracking * Chemical Lifetime Dose Automatic Entry Manual Entr y Effective Dose 16 mSv 0 mSv 16 mSv Total DLP 3,831 DLP 0 DLP 3,831 DLP CTDIvol Max 130.1 mGy 0 mGy 130.1 mGy CTDIvol Min 11.8 mGy 0 mGy 11.8 mGy Resolved Problems Problem Noted Date Diagnosed Date Resolved Date Screening for colon cancer 09/04/2016 0 09/04/2016 Malignant neoplasm of overla pping sites of bladder 07/05/2015 05/07/2017
--- OUTSIDE RECORDS SUMMARY | 2025-05-06 13:12 | XMS_ITS | Encounter Summary ---
Author Organization [facility] Address [address] [place] [address] Care Team Providers Care Ux Ui Designer Name Role Phone Stella Knight MD Primary Care Provider [phone] Reason for Referral * Outpatient Services (Routine) - Closed Specialty Diagnoses / Procedures Referred By Contac t Referred To Contact Radiology Diagnoses CVA (cerebral infarction) (CMS/HCC) Procedures US CAROTID DOPPLER Joanne Chow MD [address] [place] [address] Phone: tel: fax: [facility] [address] [place] [address] Phone: tel: fax: Referral ID Status Reason Start Date Expiration Date V isits Requested Visits Authorized [id number] Closed [facility] CTS to Schedule (SGF) 12/15/2014 01/15/2016 1 1 Encounter Details Date Type Department Care Team ([facility] st Contact Info) Description 12/15/2014 Ancillary Orders [facility] Centralized Scheduling [address] [place] [address] Joanne Chow MD [address] [place] [address] CVA (cerebral infarction) (CMS/HCC) (Primary Dx) Social History Tobacco Use Types Packs/Day Years Used Date Smoking Tobacco: Former Cigarettes 0.5 5 0 03/20/2004 - 03/20/2009 Alcohol Use Standard Drinks/Week Comments No 0 (1 standard drink = 0.6 oz pur e alcohol) Sex and Gender Information Value Date Recorded Sex Assigned at Not on file Legal Sex Male 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 Peak systolic internal carotid velocities are 0.538 m/sec on the right and 0.614 m/sec on the left for IC/CC ratios of 0.7 on the right and 1.0 on the left. No significant plaque of the carotid bifurcations is seen. No ulcerated plaque is seen. Antegrade vertebral artery flow is noted bilaterally. IMPRESSION no significant atherosclerotic changes appreciated, negative for hemodynamically significant stenosis Procedure Note Hector Moyer MD - 12/17/2014 PROCEDURE CAROTID DUPLEX ULTRASOUND, 17 December 2014 DESCRIPTION Carotid duplex sonography showed mid common carotid velocities of 0.747 m/sec on the right and 0.636 m/sec on the left. Peak systolic internal carotid velocities are 0.538 m/sec on the right and 0.614 m/sec on the left for IC/CC ratios of 0.7 on the right and 1.0 on the left. No significant plaque of the carotid bifurcations is seen. No ulcerated plaque is seen. Antegrade vertebral artery flow is noted bilaterally. IMPRESSION no significant atherosclerotic changes appreciated, negative for hemodynamically significant stenosis Joanne Chow MD ORDERABLES Final R esult documented in this encounter Visit Diagnoses Diagnosis CVA (cerebral infarction) (CMS/HCC)- Primary Unspecified cerebral artery occlusion with cerebral infarction CVA (cerebral infarction) (CMS/HCC) Unspecified cerebral artery occlusion with cerebral infarction documented in this encounter Additional Health Concerns Infection Onset Date Last Indicated Resolved Time MRSA Comment:Wound 05/04/16 Resolved 05/07/2016 05/07/2016 8 8:46 AM CDT documented as of this encounter Care Teams Ux Ui Designer Relationship Specialty Start Date End Date Stella Knight MD [address] [address] PCP - General Family Practice 07/16/13 documented as of this encounter
--- NOTE | 2025-05-06 13:27 | W.ED.LOWEXIN ---
HPI - Extremity Injury (Lower) General: Chief Complaint: Extremity Injury, Lower Stated Complaint: Fall-R Knee pain going down to ankle Time Seen by Provider: 05/06/25 13:26 Source: patient and family Mode of arrival: wheelchair Limitations: other (Extremely hard of hearing) History of Present Illness: Patient is a 65-year-old male with an extensive past medical history here with family for evaluation of right lower leg injury. Patient states he had a mechanical fall on Saturday (4 days ago) and injured the leg from my knee down . He was reportedly seen at [facility] and had x-rays of the extremity performed that were normal . He was supposedly told to follow-up with orthopedics and/or primary care provider and might possibly need outpatient MRI imaging. Patient is still complaining of pain so came here today for repeat evaluation. He states it is difficult to walk on the extremity secondary to discomfort. He denies any other injury sustained during the fall. He is not complaining of loss of sensation to the leg or color/temperature changes. MD complaint: leg injury, ankle injury and foot injury Onset (ago): day(s) Injury: Right: ankle and foot Place: home Severity: moderate Relieving factors: immobilization Exacerbating factors: weight bearing, movement and palpation Context: fall Associated symptoms: Reports no associated symptoms Other symptoms: none Related Data Previous Rx's ?Medication ?Instructions ?Recorded tamsulosin 0.4 mg capsule 0.4 mg PO DAILY #90 caps 09/07/19 aspirin 81 mg chewable tablet 81 mg PO DAILY #30 tabs 03/11/20 blood-glucose meter (Blood Glucose #1 ea 02/14/22 Monitoring kit) lancets 30 gauge (BD Microtainer #100 ea 02/14/22 Lancet) Motorized Scooter #1 ea 07/05/22 Wheeled Walker w/Seat #1 ea 08/23/22 DME: Walker #1 ea 11/28/22 AFO brace #1 ea 04/30/23 compression socks #1 ea 04/30/23 blood sugar diagnostic (OneTouch #100 strips 07/25/23 Ultra Test strips) lift chair #1 ea 07/29/23 clobetasol 0.05 % topical ointment 1 applic topical BID 10 days #60 03/17/24 grams semaglutide 0.25 mg or 0.5 mg (2 See Rx Instructions .Route 06/15/24 mg/3 mL) subcutaneous pen injector .COMPLEX #3 mL (Ozempic) metformin 1,000 mg tablet See Rx Instructions .Route 08/13/24 .COMPLEX #60 tabs amlodipine 10 mg tablet See Rx Instructions .Route 09/11/24 .COMPLEX #30 tabs clopidogrel 75 mg tablet See Rx Instructions .Route 09/11/24 .COMPLEX #30 tabs docusate sodium 100 mg capsule See Rx Instructions .Route 09/11/24 .COMPLEX #60 caps diabetic shoes with 3 inserts #1 ea 09/22/24 metoprolol tartrate 25 mg tablet See Rx Instructions .Route 11/11/24 .COMPLEX #30 tabs simvastatin 40 mg tablet See Rx Instructions .Route 01/11/25 .COMPLEX #30 tabs Allergies Allergy/AdvReac Type Severity Reaction Status Date / Time No Known Allergies Allergy Verified 03/31/25 13:25 Review of Systems Const: Denies: fever(s) Card: Denies: chest pain Resp: Denies: dyspnea or hemoptysis Musc: Reports: extremity pain, extremity swelling and joint pain (R ankle) Neuro: Reports: difficulty walking (secondary to R LE leg pain) PFSH ED PFSH: Medical History Enrolled in chronic care management History of CVA (cerebrovascular accident) Hyperlipidemia Type 2 diabetes mellitus without complication Hypertension, unspecified type Surgical History Hx of tympanostomy Family History Mother Cancer Sister Cancer Father CAD (coronary artery disease) Stroke Social History Smoking and tobacco/nicotine status: former use of tobacco/nicotine Second hand smoke exposure: Yes Alcohol intake: never Physical Exam Const: COMMON NORMALS: no acute distress, patient oriented x3 and alert GENERAL APPEARANCE: cooperative NUTRITIONAL APPEARANCE: obese OTHER: deconditioned, EXTREMELY hard of hearing, poor historian HENMT: COMMON NORMALS: normocephalic and atraumatic HEAD & SCALP: normal to inspection, normocephalic and atraumatic Resp: COMMON NORMALS: normal respiratory effort and clear to auscultation bilaterally AUSCULTATION: clear to auscultation bilaterally Cardio: COMMON NORMALS: regular rate and regular rhythm RATE: regular rate RHYTHM: regular rhythm Extremity: COMMON NORMALS: capillary refill normal and no calf tenderness GENERAL: Yes normal exam except as noted OTHER: edema from knee distally to R LE when compared to L-patient feels like this is new (does seem to have chronic bilateral edema but R is certainly worse than L); he complains of tenderness from knee down ; pulses are intact distally; feet are poorly cared for and dirty with hypertrophic nails Neuro: COMMON NORMALS: patient oriented x3, moves all extremities, no focal motor deficits and no sensory deficits noted SENSORIUM/ORIENTATION: Yes alert GAIT: Yes Unable to assess gait Course Vital Signs: Vital signs: Vital Signs Temperature 97.7 F 05/06/25 13:11 Pulse Rate 104 H 05/06/25 13:11 Respiratory Rate 18 05/06/25 13:11 Blood Pressure 129/86 05/06/25 13:11 Pulse Oximetry 96 05/06/25 13:11 Oxygen Delivery Me thod Room Air 05/06/25 13:11 MDM - Extremity Injury (Lower) Medical Decision Making XRs of the right lower leg were obtained due to complaint of injury. Personal interpretation of these were unremarkable. Radiologist did comment on a possible proximal right pinky toe fracture. Patient is not overly tender here so question the chronicity of this finding. Will have him continue supportive/hard soled shoes. Ultrasound of the extremity was obtained due to asymmetrical edema and to rule out DVT. Franck [employer] tech, preliminary report was that this was negative. Patient will be allowed discharge with recommendation to follow-up with primary care. Differential Diagnosis Likely ankle sprain and strain, fracture of toe and ankle fracture Medical Records I reviewed the patient's medical records. Lab Data Radiology Impressions Ankle X-Ray 05/06/25 13:34 IMPRESSION: 1. Large amount of soft tissue swelling around the right ankle. 2. No other acute findings. Foot X-Ray 05/06/25 13:34 IMPRESSION: 1. A slight deformity involving the head of the right 5th toe proximal phalanx is suspected to be a fracture. 2. Large amount of soft tissue swelling midfoot and distally. Tibia/Fibula X-Ray 05/06/25 13:34 IMPRESSION: No acute findings right tibia and fibula. All radiology interpretation(s) finalized by discharge Discharge Plan Discharge Patient Disposition: Home Clinical Impression: Injury of right lower leg Qualifiers: Encounter type: initial encounter Qualified Code(s): S89.91XA - Unspecified injury of right lower leg, initial encounter Condition: Stable Prescriptions: No Action (DME) Wheeled Walker w/Seat See Rx Instructions .Route .MEDSUPPLY Qty: 1 0RF Rx Instructions: As directed (DME) DME: Walker Unit See Rx Instructions .Route Qty: 1 0RF Rx Instructions: As directed- WALKER WITH WHEELS (DME) compression socks See Rx Instructions .Route .MEDSUPPLY Qty: 1 0RF Rx Instructions: As directed (DME) AFO brace See Rx Instructions .Route .MEDSUPPLY Qty: 1 0RF Rx Instructions: As directed to the [employer] [place] (DME) lift chair See Rx Instructions .Route .MEDSUPPLY Qty: 1 0RF Rx Instructions: As directed clobetasol 0.05 % ointment 1 applic TOPICAL BID 10 Days Qty: 60 0RF Rx Instructions: Apply twice daily to affected area (DME) diabetic shoes with 3 inserts See Rx Instructions .Route .MEDSUPPLY Qty: 1 0RF Rx Instructions: As directed to the [employer] [place] tamsulosin 0.4 mg capsule 0.4 mg PO DAILY Qty: 90 1RF (DME) blood-glucose meter [Blood Glucose Monitoring] Kit See Rx Instructions .ROUTE .MEDSUPPLY Qty: 1 0RF Rx Instructions: As directed ([facility]) lancets [BD Microtainer Lancet] 30 gauge misc See Rx Instructions .Route Qty: 100 0RF Rx Instructions: As directed (DME) Motorized Scooter See Rx Instructions .Route .MEDSUPPLY Qty: 1 0RF Rx Instructions: As directed ([facility]) OneTouch Ultra Test Strip See Rx Instructions .ROUTE .COMPLEX Qty: 100 0RF Dose Instruction: USE TO TEST TWICE DAILY Rx Instructions: USE TO TEST TWICE DAILY Ozempic 0.25 mg or 0.5 mg (2 mg/3 mL) pen injector See Rx Instructions .ROUTE .COMPLEX Qty: 3 11RF Dose Instruction: INJECT 0.5 MG SUBCUTANEOUSLY WEEKLY Rx Instructions: INJECT 0.5 MG SUBCUTANEOUSLY WEEKLY metformin 1,000 mg tablet See Rx Instructions .ROUTE .COMPLEX Qty: 60 11RF Dose Instruction: TAKE 1 TABLET BY MOUTH TWICE DAILY Rx Instructions: TAKE 1 TABLET BY MOUTH TWICE DAILY amlodipine 10 mg tablet See Rx Instructions .ROUTE .COMPLEX Qty: 30 11RF Dose Instruction: TAKE 1 TABLET BY MOUTH EVERY MORNING Rx Instructions: TAKE 1 TABLET BY MOUTH EVERY MORNING clopidogrel 75 mg tablet See Rx Instructions .ROUTE .COMPLEX Qty: 30 11RF Dose Instruction: TAKE 1 TABLET BY MOUTH EVERY MORNING Rx Instructions: TAKE 1 TABLET BY MOUTH EVERY MORNING docusate sodium 100 mg capsule See Rx Instructions .ROUTE .COMPLEX Qty: 60 11RF Dose Instruction: TAKE 1 CAPSULE BY MOUTH EVERY MORNING AND EVERY EVENING Rx Instructions: TAKE 1 CAPSULE BY MOUTH EVERY MORNING AND EVERY EVENING metoprolol tartrate 25 mg tablet See Rx Instructions .ROUTE .COMPLEX Qty: 30 11RF Dose Instruction: TAKE 1/2 TABLET BY MOUTH EVERY MORNING AND EVERY EVENING Rx Instructions: TAKE 1/2 TABLET BY MOUTH EVERY MORNING AND EVERY EVENING simvastatin 40 mg tablet See Rx Instructions .ROUTE .COMPLEX Qty: 30 11RF Dose Instruction: TAKE 1 TABLET BY MOUTH EVERY MORNING Rx Instructions: TAKE 1 TABLET BY MOUTH EVERY MORNING aspirin 81 mg tablet,chewable 81 mg PO DAILY Qty: 30 0RF Discharge Orders: Discharge ED (Routine); Ordered 05/06/25 Ordered By: Helena Lagunas Referrals: Katelynn Markham FNP [Primary Care Provider, Family Practice] Patient Instructions: Patient Portal & Gerardo Instructions Activity Restrictions/Additional Instructions: As we discussed, ultrasound of the leg did not show a blood clot. X-rays of his right lower leg, ankle, and foot were obtained today showing no obvious fractures. There was one small concern about a nondisplaced fracture of his pinky toe. Patient needs to continue wearing supportive shoe wear and follow up with his primary care provider. Print Language: Irish Coding Level of Care Code ED Foster Winder for Grace Severino
--- NOTE | 2025-05-06 13:34 | XRR_ITS ---
PROCEDURE INFORMATION: Exam: XR Right Foot Exam date and time: 05/06/2025 3:00 PM Age: 65 years old Clinical indication: Injury or trauma; Fall; Blunt trauma; Foot; Right TECHNIQUE: Imaging protocol: Radiologic exam of the right foot. Views: 3 or more views. COMPARISON: CR XR ankle RT min 3V* [id number] 05/06/2025 2:55 PM FINDINGS: Bones/joints: A slight deformity involving the head of the right 5th toe proximal phalanx is suspected to be a fracture. No other fractures identified. Otherwise, unremarkable. Soft tissues: Large amount of soft tissue swelling midfoot and distally. Otherwise, unremarkable soft tissues. XR/XR foot RT min 3V* [id number] IMPRESSION: 1. A slight deformity involving the head of the right 5th toe proximal phalanx is suspected to be a fracture. 2. Large amount of soft tissue swelling midfoot and distally.
--- NOTE | 2025-05-06 13:34 | XRR_ITS ---
PROCEDURE INFORMATION: Exam: XR Right Ankle Exam date and time: 05/06/2025 2:55 PM Age: 65 years old Clinical indication: Injury or trauma; Fall; Blunt trauma; Ankle; Right TECHNIQUE: Imaging protocol: Radiologic exam of the right ankle. Views: 3 or more views. COMPARISON: CR XR tibia fibula RT 2V [id number] 05/06/2025 2:51 PM FINDINGS: Bones/joints: Mild arthritic change right ankle. Otherwise, unremarkable. Soft tissues: Large amount of soft tissue swelling around the right ankle. Otherwise, unremarkable soft tissues. Vasculature: Moderate amount of arterial calcification. XR/XR ankle RT min 3V* [id number] IMPRESSION: 1. Large amount of soft tissue swelling around the right ankle. 2. No other acute findings.
--- NOTE | 2025-05-06 13:34 | XRR_ITS ---
PROCEDURE INFORMATION: Exam: XR Right Tibia and Fibula Exam date and time: 05/06/2025 2:51 PM Age: 65 years old Clinical indication: Injury or trauma; Fall; Blunt trauma; Lower leg; Right; Additional info: Fall/edema TECHNIQUE: Imaging protocol: Radiologic exam of the right tibia and fibula. Views: 2 views. COMPARISON: No relevant prior studies available. FINDINGS: Bones/joints: Mild arthritic changes right ankle. Otherwise, unremarkable. Soft tissues: Soft tissue swelling around the right ankle. Otherwise, unremarkable. XR/XR tibia fibula RT 2V [id number] IMPRESSION: No acute findings right tibia and fibula.
--- NOTE | 2025-05-06 13:34 | USCV_ITS ---
Bro Rutledge Age: 65 Gender: M : 1960 Exam Date: 05/06/2025 13:48 Ordering Phys: Helena Lagunas Technologist: JON Exam Location: [facility] [place]_ Indication: Edema HISTORY: Edema. PROCEDURES: Venous duplex imaging was performed in only the right lower extremity. The following venous structures were evaluated: common femoral vein, profunda vein, proximal portion of the greater saphenous vein, superficial femoral vein, and the popliteal vein. In addition, the posterior tibial and peroneal trunk were evaluated. Serial compression, augmentation maneuvers, and spectral Doppler flow evaluation were performed. FINDINGS: No evidence of DVT seen in any vessel visualized at this time. CONCLUSIONS No evidence of right lower extremity DVT. Louie Baez MD (Electronically Signed) Final Date: 06 May 2025 15:27 S
[2025-05-06 14:39] VITALS: BP 149/84; PULSE 110; O2SAT 97
[2025-05-06 14:52] VITALS: BP 131/90; PULSE 89; O2SAT 98
== END 2025-05-06 14:53 | disposition home or self-care (01) ==
PROVIDERS: Emergency Provider Physician Assistant; PCP Nurse Practitioner Family
DX: S89.91XA Unspecified injury of right lower leg, initial encounter (principal); Z79.84 Long term (current) use of oral hypoglycemic drugs; Z79.02 Long term (current) use of antithrombotics/antiplatelets; Z79.82 Long term (current) use of aspirin; Z87.891 Personal history of nicotine dependence; E78.5 Hyperlipidemia, unspecified; Z86.73 Personal history of transient ischemic attack (TIA), and cerebral infarction without residual deficits; E11.9 Type 2 diabetes mellitus without complications; W19.XXXA Unspecified fall, initial encounter
CPT/HCPCS: 73590; 73610; 73630; 93971; 99284

== ENCOUNTER 2025-05-26 14:11 | Emergency (ER) | payer MEDICARE, MEDICAID, SELFPAY ==
--- OUTSIDE RECORDS SUMMARY | 2025-05-26 14:17 | XMS_ITS | Encounter Summary ---
Author Organization [facility] Address [address] [place] [address] Care Team Providers Care Restaurant Operations Manager Name Role Phone Stella Knight MD Primary Care Provider Encounter Details Date Type Department Care Team (Late st Contact Info) Description 03/23/2015 Ancillary Orders [facility] [address] [place] [phone] Katelynn Markham, HOSPITAL MEDICAL BILLER [address] [place] [phone] Social History Tobacco Use Types Packs/Day Years Used Date Smoking Tobacco: Former Cigarettes 0.5 5 0 03/20/2004 - 03/20/2009 Alcohol Use Standard Drinks/Week Comments No 0 (1 standard drink = 0.6 oz pur e alcohol) Sex and Gender Information Value Date Recorded Sex Assigned at Not on file 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 Gender Identity Not on file Sexual Orientation Not on file documented as of this encounter Plan of Treatment Not on file documented as of this encounter Visit Diagnoses Not on filedocumented in this encounter Additional Health Concerns Infection Onset Date Last Indicated Resolved Time MRSA Comment:Wound 05/04/16 Resolved 05/07/2016 05/07/201609/17/ 8 8:46 AM CDT documented as of this encounter Care Teams Restaurant Operations Manager Relationship Specialty Start Date End Date Stella Knight MD [address] [address] PCP - General Family Practice 07/16/13 documented as of this encounter
--- OUTSIDE RECORDS SUMMARY | 2025-05-26 14:17 | XMS_ITS | Encounter Summary ---
Author Organization [facility] Address [address] [place] [address] Care Team Providers Care Greige Goods Marker Name Role Phone Stella Knight MD Primary Care Provider Encounter Details Date Type Department Care Team (Late st Contact Info) Description 03/23/2015 Ancillary Orders [facility] [address] [place] [phone] Katelynn Markham, DANCING MASTER [address] [place] [phone] Right knee pain (Primary Dx) Social History Tobacco Use Types Packs/Day Years Used Date Smoking Tobacco: Former Cigarettes 0.5 5 0 03/20/2004 - 03/20/2009 Alcohol Use Standard Drinks/Week Comments No 0 (1 standard drink = 0.6 oz pur e alcohol) Sex and Gender Information Value Date Recorded Sex Assigned at Not on file Legal Sex Male 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 PENSION ADVISER Gender Identity Not on file Sexual Orientation [...] fracture or significant degenerative change Katelynn Markham DANCING MASTER DIAGNOSTIC IMAGING ORDERABL ES Final Result documented in this encounter Visit Diagnoses Diagnosis Right knee pain Pain in joint, lower leg Right knee pain- Primary Pain in joint, lower leg documented in this encounter Additional Health Concerns Infection Onset Date Last Indicated Resolved Time MRSA Comment:Wound 05/04/16 Resolved 05/07/2016 05/07/2016 8 8:46 AM CDT documented as of this encounter Care Teams Greige Goods Marker Relationship Specialty Start Date End Date Stella Knight MD [address] [phone] PCP - General Family Practice 07/16/13 documented as of this encounter
--- OUTSIDE RECORDS SUMMARY | 2025-05-26 14:17 | XMS_ITS | Encounter Summary ---
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 Gender Identity Not on file Sexual Orientation Not on file documented as of this encounter Plan of Treatment Not on file documented as of this encounter Visit Diagnoses Not on filedocumented in this encounter Additional Health Concerns Infection Onset Date Last Indicated Resolved Time MRSA Comment:Wound 05/04/16 Resolved 05/07/2016 05/07/201609/17/ 8 8:46 AM CDT documented as of this encounter Care Teams Machine Maintenance Technician Relationship Specialty Start Date End Date Stella Knight MD [address] [address] PCP - General Family Practice 07/16/13 documented as of this encounter
--- OUTSIDE RECORDS SUMMARY | 2025-05-26 14:17 | XMS_ITS | Encounter Summary ---
Author Organization [facility] Address [address] [place] [address] Care Team Providers Care Bun Icer Name Role Phone Stella Knight MD Primary Care Provider Encounter Details Date Type Department Care Team (Latest Contact Info) Description 04/13/2004 Outpatient Historical [facility] Medicine[address] [address] Angela Daniel MD [address] [place] [address] AFTERCARE WASHERY ENGINEER ANTICOAG USE (Primary Dx) Social History Tobacco Use Types Packs/Day Years Used Date Smoking Tobacco: Never Assessed Sex and Gender Information Value Date Recorded Sex Assigned at Not on file 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 Gender Identity Not on file Sexual Orientation Not on file documented as of this encounter Plan of Treatment Not on file documented as of this encounter Visit Diagnoses Diagnosis detention (current) use of anticoagulants- Primary Long-term (current) use of anticoagulants documented in this encounter Additional Health Concerns Infection Onset Date Last Indicated Resolved Time MRSA Comment:Wound 05/04/16 Resolved 05/07/2016 05/07/2016 8 8:46 AM CDT documented as of this encounter Care Teams Bun Icer Relationship Specialty Start Date End Date Stella Knight MD [address] [address] PCP - General Family Practice 07/16/13 documented as of this encounter
--- OUTSIDE RECORDS SUMMARY | 2025-05-26 14:17 | XMS_ITS | Encounter Summary ---
Author Organization [facility] Address [address] [place] [address] Care Team Providers Care Economic Analyst Name Role Phone Stella Knight MD Primary Care Provider Encounter Details Date Type Department Care Team (Latest Contact Info) Description 07/14/2002 Outpatient Historical [facility] Medicine[address] [address] Byron Garg MD [address] [address] FX PHALANX, HAND NOS-CLOSE (Primary Dx) Social History Tobacco Use Types Packs/Day Years Used Date Smoking Tobacco: Never Assessed Sex and Gender Information Value Date Recorded Sex Assigned at Not on file 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
--- OUTSIDE RECORDS SUMMARY | 2025-05-26 14:17 | XMS_ITS | Encounter Summary ---
Author Organization [facility] Address [address] [place] [address] Care Team Providers Care Manager Occupational Name Role Phone Stella Knight MD Primary Care Provider Encounter Details Date Type Department Care Team (Latest Contact Info) Description 07/28/2002 Outpatient Historical [facility] [address] [address] Byron Garg MD [address] [address] FX PHALANX, HAND NOS-CLOSE (Primary Dx) Social History Tobacco Use Types Packs/Day Years Used Date Smoking Tobacco: Never Assessed Sex and Gender Information Value Date Recorded Sex Assigned at Not on file 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
--- OUTSIDE RECORDS SUMMARY | 2025-05-26 14:17 | XMS_ITS | Encounter Summary ---
Author Organization [facility] Address [address] [place] [address] Care Team Providers Care Manager Business Development Hospice Name Role Phone Stella Knight MD Primary Care Provider Encounter Details Date Type Department Care Team (Latest Contact Info) Description 2004 Outpatient Historical [facility] Medicine[address] [address] Hero Vo MD [address] [place] [address] AFTERCARE PROJECT MANAGER/DESIGN MANAGER ANTICOAG USE (Primary Dx) Social History Tobacco Use Types Packs/Day Years Used Date Smoking Tobacco: Never Assessed Sex and Gender Information Value Date Recorded Sex Assigned at Not on file Legal Sex Male 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 Gender Identity Not on file Sexual Orientation Not on file documented as of this encounter Plan of Treatment Not on file documented as of this encounter Visit Diagnoses Diagnosis 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
--- OUTSIDE RECORDS SUMMARY | 2025-05-26 14:17 | XMS_ITS | Encounter Summary ---
Author Organization 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
--- OUTSIDE RECORDS SUMMARY | 2025-05-26 14:17 | XMS_ITS | Encounter Summary ---
Author Organization [facility] Address [address] [place] [address] Care Team Providers Care Mineral Engineer Name Role Phone Stella Knight MD Primary Care Provider [phone] Encounter Details Date Type Department Care Team (Latest Contact Info) Description 04/04/2004 Outpatient Historical [facility] Medicine- [address] [address] Hero Vo MD [address] [place] [address] ELEV BL PRES W/O HYPERTN (Primary Dx); LIPOMA NOS; AFTERCARE ASSOCIATE SCIENTIST ANTICOAG USE Social History Tobacco Use Types Packs/Day Years Used Date Smoking Tobacco: Never Assessed Sex and Gender Information Value Date Recorded Sex Assigned at Not on file 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 Gender Identity Not on file Sexual Orientation Not on file documented as of this encounter Plan of Treatment Not on file documented as of this encounter Visit Diagnoses Diagnosis Elevated blood pressure reading without diagnosis of hypertension- Primary Lipoma of unspecified site longterm (current) use of anticoagulants Long-term (current) use of anticoagulants documented in this encounter Additional Health Concerns Infection Onset Date Last Indicated Resolved Time MRSA Comment:Wound 05/04/16 Resolved 05/07/2016 05/07/2016 8 8:46 AM CDT documented as of this encounter Care Teams Mineral Engineer Relationship Specialty Start Date End Date Stella Knight MD [address] [phone] PCP - General Family Practice 07/16/13 documented as of this encounter
--- OUTSIDE RECORDS SUMMARY | 2025-05-26 14:17 | XMS_ITS | Encounter Summary ---
Author Organization [facility] Address [address] [place] [address] Care Team Providers Care Ux Developer Designer Name Role Phone Stella Knight MD Primary Care Provider Encounter Details Date Type Department Care Team (Late st Contact Info) Description 04/03/2019 Ancillary Orders [facility] [address] [place] [address] Katelynn Markham, GLUE SPECIALTY SUPERVISOR [address] [place] [address] Contusion of knee and lower leg, right, initial encounter Social History Tobacco Use Types Packs/Day Years Used Date Smoking Tobacco: Former Cigarettes 0.5 5 Smokeless Tobacco: Former Alcohol Use Standard Drinks/Week Comments No 0 (1 standard drink = 0.6 oz pur e alcohol) Sex and Gender Information Value Date Recorded Sex Assigned at Not on file 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 Mild degenerative changes. [id number] Narrative 04/03/2019 6:47 PM CDT Exam: XR [...] No acute osseous abnormality. Mild degenerative changes. [id number] Katelynn Markham GLUE SPECIALTY SUPERVISOR DIAGNOSTIC IMAGING ORDERABL ES Final Result documented in this encounter Visit Diagnoses Diagnosis Contusion of knee and lower leg, right, initial encounter Contusion of knee and lower leg, right, initial encounter documented in this encounter Care Teams Ux Developer Designer Relationship Specialty Start Date End Date Stella Knight MD [address] [phone] PCP - General Family Practice 07/16/13 documented as of this encounter
--- OUTSIDE RECORDS SUMMARY | 2025-05-26 14:17 | XMS_ITS | Encounter Summary ---
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 Gender Identity Not on file Sexual Orientation Not on file documented as of this encounter Plan of Treatment Not on file documented as of this encounter Visit Diagnoses Not on filedocumented in this encounter Additional Health Concerns Infection Onset Date Last Indicated Resolved Time MRSA Comment:Wound 05/04/16 Resolved 05/07/2016 05/07/201609/17/ 8 8:46 AM CDT documented as of this encounter Care Teams Director Advanced Relationship Specialty Start Date End Date Stella Knight MD [address] [facility] [address] [place] [phone] PCP - General Family Practice 07/16/13 documented as of this encounter
--- OUTSIDE RECORDS SUMMARY | 2025-05-26 14:17 | XMS_ITS | Encounter Summary ---
Author Organization [facility] Address [address] [place] [address] Care Team Providers Care Anesthetic Assistant Name Role Phone Stella Knight MD Primary Care Provider [phone] Encounter Details Date Type Department Care Team (Latest Contact Info) Description 07/07/2002 Outpatient Historical [facility] Medicine[address] [address] Byron Garg MD [address] [phone] FX PHALANX, HAND NOS-CLOSE (Primary Dx) Social History Tobacco Use Types Packs/Day Years Used Date Smoking Tobacco: Never Assessed Sex and Gender Information Value Date Recorded Sex Assigned at Not on file 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
--- OUTSIDE RECORDS SUMMARY | 2025-05-26 14:17 | XMS_ITS ---
Author Organization [facility] Address [address] [place] [address] Phone Care Team Providers Care Machine Hoop Maker Name Role Phone Non-Staff, Physician Primary Care [...]
--- OUTSIDE RECORDS SUMMARY | 2025-05-26 14:17 | XMS_ITS | Encounter Summary ---
Author Organization [facility] Address [address] [place] [address] Care Team Providers Care Character Artist Name Role Phone Stella Knight MD Primary Care Provider [phone] Reason for Referral * Outpatient Services (Routine) - Closed Specialty Diagnoses / Procedures Referred By Contac t Referred To Contact Radiology Diagnoses CVA (cerebral infarction) (CMS/HCC) Procedures US CAROTID DOPPLER Joanne Chow MD [address] [place] [address] Phone: tel: fax: [facility] [address] [place] [address] Phone: tel: fax: Referral ID Status Reason Start Date Expiration Date V isits Requested Visits Authorized [id number] Closed [facility] View CTS to Schedule (SGF) 12/15/2014 01/15/2016 1 1 Encounter Details Date Type Department Care Team ([facility] st Contact Info) Description 12/15/2014 Ancillary Orders [facility] Centralized Scheduling [address] [place] [address] Joanne Chow MD [address] [place] [address] CVA (cerebral infarction) (CMS/HCC) (Primary Dx) Social History Tobacco Use Types Packs/Day Years Used Date Smoking Tobacco: Former Cigarettes 0.5 5 0 03/20/2004 - 03/20/2009 Alcohol Use Standard Drinks/Week Comments No 0 (1 standard drink = 0.6 oz pur e alcohol) Sex and Gender Information Value Date Recorded Sex Assigned at Not on file Legal Sex Male 3:06 AM 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
--- OUTSIDE RECORDS SUMMARY | 2025-05-26 14:18 | XMS_ITS | Clinical Summary ---
Author Organization [facility] Address [address] [place] [address] Phone Care Team Providers Care Band Booker Name Role Phone Non-Staff, Physician Primary Care Provider Unava ilable Allergies No known active allergies Medications clopidogreL (PLAVIX) 75 mg Tablet Take 1 Tablet (75 mg) by mouth daily. 90 Tablet 0 9 Active lancets 30 gauge 1 Each by Mis.(Non-Drug; Combo Route) route daily before breakfast DX: [...] Encounters Date Type Department Care Team Description 05/11/2025 External Device Data ST[facility] ABSTRACTION Provider, Abstract 05/11/2025 External Device Data [facility] ABSTRACTION Provider, Abstract 05/11/2025 External Device Data [facility] ABSTRACTION Provider, Abstract 05/04/2025 5:50 AM SPECTROGRAPHIC ANALYST - 05/04/2025 11:59 PM SPECTROGRAPHIC ANALYST Hospital Encounter [facility] [place] [address] [place] [phone] Ambulance, [facility] Discharge Disposition: [facility] 05/04/2025 2:23 AM SPECTROGRAPHIC ANALYST - 05/04/2025 4:35 AM SPECTROGRAPHIC ANALYST Emergency [facility] Emergency Medicine [address] [place] [phone] Ab Olmos MD Contusion of right lower leg, initial encounter (Primary Dx) Discharge Disposition: Home or Self Care 05/04/2025 Travel 03/24/[address] [place] [phone] Hero Martinez NP No Show 03/23/2025 External Device Data [facility] ABSTRACTION Provider, Abstract 03/16/2025 External Device Data [facility] ABSTRACTION Provider, Abstract from Last 3 Months Immunizations Immunization Administration Dates Next Due ([facility])(12 YR UP) COVID-19 VACCINE - EMERGENCY USE AUTHORIZATION, MRNA, [id number](PF) 30 MCG/0.3 ML IM SUSP 02/09/2021,01/19/2021 Family [...] worry about transportation for future doctor visits, fish bait picker medication, etc.? No 2024 Housing Stability [...] on file Legal Sex Male 6:36 AM SPECTROGRAPHIC ANALYST Gender Identity Not on file Sexual Orientation Not on file Last Filed Vital Signs Vital Sign Reading Time Taken Comments Blood Pressure 131/88 05/04/2025 4:00 AM SPECTROGRAPHIC ANALYST Pulse 99 05/04/2025 4:00 AM SPECTROGRAPHIC ANALYST Temperature 36.7 C (98.1 F) 05/04/2025 2:43 AM SPECTROGRAPHIC ANALYST Respiratory Rate 18 05/04/2025 4:00 AM SPECTROGRAPHIC ANALYST Oxygen Saturation 95% 05/04/2025 4:00 AM SPECTROGRAPHIC ANALYST Inhaled Oxygen Concentration - - Weight 107.9 kg (237 lb 14.4 oz) 05/04/2025 2:43 AM SPECTROGRAPHIC ANALYST Height 172.7 cm (5' 8 ) 05/04/2025 2:43 AM SPECTROGRAPHIC ANALYST Body Mass Index 36.17 05/04/2025 2:43 AM SPECTROGRAPHIC ANALYST Plan of Treatment Health Maintenance Due Date [...] INFLUENZA VACCINE (#1) 2025 04/04/2018 COVID-19 Vaccine (2024-2 6 season) 2025 02/09/2021, 01/19/2021 COLORECTAL SCREENING 09/04/2026 09/04/2016 Colorectal Cancer Screening 09/04/2026 Abdominal Aortic Aneurysm (A AA) Screening Completed 04/01/2015 Procedures Procedure Name Priority Date/Time Associated Diagnosis Comments XR FEMUR 2 VW RIGHT Stat 05/04/2025 3 :29 AM SPECTROGRAPHIC ANALYST XR TIBIA AND FIBULA 2 VW RIGHT Stat 05/04/2025 3:29 AM SPECTROGRAPHIC ANALYST XR FOOT 3+ VW RIGHT Stat 05/04/2025 3 :29 AM SPECTROGRAPHIC ANALYST HEMOGLOBIN A1C Routine 03/17/2024 LIPID PANEL Routine 12/17/2018 8:34 AM CDT MICROALBUMIN/CREATIN INE RATIO, RANDOM UR Routine 05/13/2018 12:19 PM SPECTROGRAPHIC ANALYST HM DIABETES EYE EXAM 02/05/2018 12:[address] ABDOMEN PELVIS WO CONTRAST Stat 04/01/2015 2:41 PM CDT Cystitis Hydronephrosis of right kidney from Last 3 Months or Most Recently Relevant to Health Maintenance Results * XR FEMUR 2 VW RIGHT (05/04/2025 3:29 AM SPECTROGRAPHIC ANALYST) Anatomical Region Laterality Modality Lower Extremity Computed Radiogr aphy 05/04/2025 3:30 AM SPECTROGRAPHIC ANALYST Impressions 05/04/2025 3:58 AM SPECTROGRAPHIC ANALYST IMPRESSION: Negative for an acute bony abnormality. . Narrative 05/04/2025 3:58 AM SPECTROGRAPHIC ANALYST EXAM: XR FEMUR 2 VW RIGHT DATE/TIME [...] FIBULA 2 VW RIGHT (05/04/2025 3:29 AM SPECTROGRAPHIC ANALYST) Anatomical Region Laterality Modality Lower Extremity Computed Radiogr aphy 05/04/2025 3:29 AM SPECTROGRAPHIC ANALYST Impressions 05/04/2025 3:57 AM SPECTROGRAPHIC ANALYST IMPRESSION: No acute displaced fracture. Diffuse edema of the right lower extremity. . Narrative 05/04/2025 3:57 AM SPECTROGRAPHIC ANALYST EXAM: XR TIBIA AND FIBULA 2 VW [...] FOOT 3+ VW RIGHT (05/04/2025 3:29 AM SPECTROGRAPHIC ANALYST) Anatomical Region Laterality Modality Ankle / Foot Computed Radiogr aphy 05/04/2025 3:29 AM SPECTROGRAPHIC ANALYST Impressions 05/04/2025 3:57 AM SPECTROGRAPHIC ANALYST IMPRESSION: Lucency in the plantar forefoot. Finding is suggestive of ulceration. Severe soft tissue swelling of the dorsal forefoot. Lucency along the radial cortex of the third proximal phalanx. Finding may represent osteomyelitis. Recommend MRI of the foot. . Narrative 05/04/2025 3:57 AM SPECTROGRAPHIC ANALYST EXAM: XR FOOT 3+ VW RIGHT DATE/TIME [...] 124 <200 mg/dL 12/17/2018 8:34 PM CDT [facility] TRIGLYCERIDE 52 <150 mg/dL 12/17/2018 8:34 PM CDT [facility] HDL 36(L) 40 - 59 mg/dL 12/17/2018 8:34 PM CDT [facility] L[facility]ITHA LDL CALCULATED 78 <100 mg/dL 12/17/2018 8:34 PM CDT [facility] NON-HDL CHOLESTEROL 88 <130 mg/dL 12/17/2018 8:34 PM CDT [facility] Blood Venipuncture / Unknown 12/17/2018 8:34 AM CDT 12/17/2018 7:39 PM CDT Narrative [facility] - 12/17/2018 8:34 PM CDT TOTAL CHOLESTEROL mg/dL Desirable<200 Borderline [id number] High>=240 TRIGLYCERIDES mg/dL Normal<150 Borderline [id number] Very high>=500 HDL CHOLESTEROL mg/dL Low<40 [id number] Desirable>=60 NON HDL CHOLESTEROL mg/dL Optimal<130 Near [id number] Borderline [id number] Very High>=190 Calculated LDL mg/dL Optimal<100 Near [id number] Borderline [id number] [id number] Very High>=190 ATPIII Guidelines Reference Ranges for Lipid Panels (NCEP/AMA) Katelynn LIPSCOMB CHEMISTRY ORDERABLES Final Result [facility] CLIA# [id number] [facility] [place] [address] * (ABNORMAL) MICROALBUMIN/CREATININE RATIO, RANDOM UR (05/13/2018 12:19 PM SPECTROGRAPHIC ANALYST) MICROALBUMIN, URINE 3.6 No Reference Range mg/dL 05/13/2018 1:04 PM [facility] CREATININE, URINE 103.6 40.0 - 278.0 mg/dL 05/13/2018 1:04 PM [facility] Comment: Reference Range varies with fluid intake and diet. MICROALBUMIN/C REAT RATIO, UR 34.7(H) <17.0 mg/g 05/13/2018 1:04 PM [facility] Urine URINE SPECIMEN OBTAINED BY CLEAN CATCH PROCEDURE / Unknown Collection / Unknown 05/13/2018 12:19 PM SPECTROGRAPHIC ANALYST 05/13/2018 12:19 PM [facility] Narrative [facility] - 05/13/2018 1:04 PM [facility] Condition Microalbumin/Creat ratio Normal Males <17 Normal Females <25 Microalbuminuria Males 17-299 Microalbuminuria Females 25-299 Overt proteinuria >=300 us Nito Franklin MD URINE ORDERABLES Final Resul t [facility] # [id number] [address] [place] [address] [facility] # [id number] [address] [place] [address] * HM DIABETES EYE EXAM (02/05/2018 12:00 AM CDT) [facility] HEALTH MAINTENANCE Final Result * CT [...] ER at 1458 hours, 01 April [address] ORDERABLES Final Result from Last 3 Months or Most Recently Relevant to Health Maintenance Insurance [place] [facility] DUAL COMPLETE HMO [facility] [id number] Care Teams Band Booker Relationship Specialty Start Date End Date Non-Staff, Physician NO ADDRESS ON FILE PCP - General 08/07/21
--- OUTSIDE RECORDS SUMMARY | 2025-05-26 14:18 | XMS_ITS | Clinical Summary ---
Author Organization [facility] Address [address] [place] [address] Care Team Providers Care Mechanical And Auto Body Car Checker Name Role Phone Unavailable Primary Care Provider Unavailabl e Medications amLODIPine (NORVASC) 10 MG tablet TAKE 1 TABLET BY MOUTH EVERY DAY 90 tablet 09/05/2018 Active Family History Medical History Relation Comments Heart disease Father 2 Dementia Mother 2 Cancer Sibling Relation Status Comments Father 1 Father 2 Mother 1 Mother 2 Sibling Social History Tobacco Use Types Packs/Day Years Used Date Smoking Tobacco: Never Sex and Gender Information Value Date Recorded Sex Assigned at Not on file Legal Sex Male 12:46 PM EST Gender Identity Not on file Sexual Orientation Not on file Last Filed Vital Signs Vital Sign Reading Time Taken Comments Blood Pressure 102/74 05/19/2018 11:00 AM CANCER GENETIC COUNSELOR Pulse 80 05/19/2018 11:00 AM CANCER GENETIC COUNSELOR Temperature - - Respiratory Rate - - Oxygen Saturation - - Inhaled Oxygen Concentration - - Weight 77.8 kg (171 lb 8 oz) 05/19/2018 11:00 AM CANCER GENETIC COUNSELOR Height 172.7 cm (5' 8 ) 05/19/2018 11:00 AM CANCER GENETIC COUNSELOR Body Mass Index 26.08 05/19/2018 11:00 AM CANCER GENETIC COUNSELOR Plan of Treatment Health Maintenance Due Date Last Done Comments Colorectal Cancer Screening: Annual FOBT 2011 Colorectal Cancer Screening: Colonoscopy 2011 Colorectal Cancer Screening: Sigmoidoscopy 2011 Pneumococcal Vaccine: 50+ Ye ars (1 of 1 - PCV) 2012 Diabetes: Hemoglobin A1C 09/19/2019 05/13/2017 Diabetes: Ophthalmology Exam 09/19/2019 Diabetes: Pedal Pulse Checked 09/19/2019 Diabetes: Sensory Foot Exam 09/19/2019 Diabetes: Visual Foot Exam 09/19/2019 Influenza Vaccine (#1) 2025 Hepatitis B Vaccine Aged Out No longe r eligible based on patient's age to complete this topic Procedures Procedure Name Priority Date/Time Associated Diagnosis Comments HEMOGLOBIN A1C Routine 05/13/2017 12:00 AM CANCER GENETIC COUNSELOR from Last 3 Months or Most Recently Relevant to Health Maintenance Results * (ABNORMAL) Hemoglobin A1c (05/13/2017 12:00 AM CANCER GENETIC COUNSELOR) Hemoglobin A1C 9.5(H) 4.0 - 6.0 % SNA Comment referral - sw SNA 05/13/2017 us Sna Conversion LAB BLOOD ORDERABLES Final Resul t SNA from Last 3 Months or Most Recently Relevant to Health Maintenance
--- OUTSIDE RECORDS SUMMARY | 2025-05-26 14:18 | XMS_ITS | Encounter Summary ---
Author Organization [facility] Address [address] [address] Phone Care Team Providers Care Electrical Wiring Lineman Name Role Phone Unavailable Primary Care Provider Unavailabl e Reason for Visit * Reason Comments Med Refill Encounter Details Date Type Department Care Team (Late st Contact Info) Description 12/02/2018 Refill [facility] [address] [facility] [address] [place] [address] Nito Franklin MD Social History Tobacco Use Types Packs/Day Years [...]
--- OUTSIDE RECORDS SUMMARY | 2025-05-26 14:18 | XMS_ITS | Clinical Summary ---
Author Organization [facility] Address [address] [place] [address] Phone Care Team Providers Care Associate Consulting Engineer Name Role Phone Stella Knight MD [...] DELICA LANCETS) 30 gauge 1 Each by [facility].(Non-Drug; Combo Route) route daily before breakfast DX: [...] 7 Tablet 1 Active blood sugar diagnostic (NetTalonuch Ultra Blue Test Strip) Strip USE TO [...] lb) Assessment & Plan (05/07/2017 2:21 PM PIPE LINE MAINTENANCE SUPERVISOR): Body mass index is 40.6 kg/m . [...] AM Assessment & Plan (05/11/2016 12:30 PM PIPE LINE MAINTENANCE SUPERVISOR): Diabetes: Poorly controlled. Medications reviewed and refilled/adjusted [...] 116/87 Assessment & Plan (05/07/2017 2:18 PM PIPE LINE MAINTENANCE SUPERVISOR): Suboptimal control. Will adjust BP medication Hyperlipidemia [...] AM Assessment & Plan (05/07/2017 2:19 PM PIPE LINE MAINTENANCE SUPERVISOR): Stable. Continue current medication Vertigo as late [...] on file Legal Sex Male 3:06 AM PIPE LINE MAINTENANCE SUPERVISOR Gender Identity Not on file Sexual Orientation [...] (Previously completed), Additional history exists Medicare Advantage (ND) Preventative Visit/Annual Wellness Visit 07/01/2024 INFLUENZA VACCINE (#1) 2025 04/04/2018 COLORECTAL CANCER SCREENING (AUTO ORDER) 09/04/2026 09/04/2016 COLORECTAL SCREENING 09/04/2026 09/04/2016 Colorectal Cancer Screening (AUTO ORDER) 09/04/2026 Colorectal Cancer Screening 09/04/2026 Procedures Procedure Name Priority Date/Time Associated Diagnosis Comments HEMOGLOBIN A1C Routine 08/03/2019 4:18 PM PIPE LINE MAINTENANCE SUPERVISOR Type 2 diabetes mellitus with hyperglycemia, without long-term current use of insulin (CMS/HCC) Benign hypertension LIPID PANEL Routine 12/17/2018 8:34 AM CDT Mixed hyperlipidemia MICROALBUMIN/CREATI NINE RATIO, RANDOM UR Routine 05/13/2018 12:19 PM PIPE LINE MAINTENANCE SUPERVISOR Proteinuria, unspecified type Diabetes mellitus (CMS/HCC) Hypertensive heart disease with congestive heart failure (CMS/HCC) HM DIABETES EYE EXAM Routine 02/05/2018 from Last 3 Months or Most Recently Relevant to Health Maintenance Results * (ABNORMAL) HEMOGLOBIN A1C (08/03/2019 4:18 PM PIPE LINE MAINTENANCE SUPERVISOR) HEMOGLOBIN A1C 5.9(H) <=5.6 % 08/03/2019 4:53 PM PIPE LINE MAINTENANCE SUPERVISOR [facility] EST. AVG GLUCOSE, A1C 123 mg/dL 08/03/2019 4:53 PM PIPE LINE MAINTENANCE SUPERVISOR [facility] Blood Venipuncture / Unknown 08/03/2019 4:18 PM PIPE LINE MAINTENANCE SUPERVISOR 08/03/2019 4:18 PM PIPE LINE MAINTENANCE SUPERVISOR [facility] - 08/03/2019 4:53 PM PIPE LINE MAINTENANCE SUPERVISOR HGB A1C INTERPRETATION NORMAL: <5.7% PRE-DIABETES: 5.7 - 6.4% DIABETES: 6.5% OR GREATER Fatimah Clark NP CHEMISTRY ORDERABLES Fi nal Result [facility] CLIA # [id number] [address] [place] [id number] * (ABNORMAL) LIPID PANEL (12/17/2018 8:34 AM CDT) CHOLESTEROL 124 <200 mg/dL 12/17/2018 8:34 PM CDT [facility] TRIGLYCERIDE 52 <150 mg/dL 12/17/2018 8:34 PM CDT [facility] HDL 36(L) 40 - 59 mg/dL 12/17/2018 8:34 PM CDT [facility] LDL CALCULATED 78 <100 mg/dL 12/17/2018 8:34 PM CDT [facility] NON-HDL CHOLESTEROL 88 <130 mg/dL 12/17/2018 8:34 PM CDT [facility] Blood Venipuncture / Unknown 12/17/2018 8:34 AM CDT 12/17/2018 7:39 PM CDT [facility] - 12/17/2018 8:34 PM [...] CHEMISTRY ORDERABLES Final Result Performing Organization Address City/[facility] [[email or web address]] Co de Phone Number [facility] CLARIMIRIAM# [id number] [address] [place] [phone] * (ABNORMAL) MICROALBUMIN/CREATININE RATIO, RANDOM UR (05/13/2018 12:19 PM PIPE LINE MAINTENANCE SUPERVISOR) MICROALBUMIN, URINE 3.6 No Reference Range mg/dL 05/13/2018 1:04 PM [facility] CREATININE, URINE 103.6 40.0 - 278.0 mg/dL 05/13/2018 1:04 PM [facility] Comment: Reference Range varies with fluid intake and diet. MICROALBUMIN/C REAT RATIO, UR 34.7(H) <17.0 mg/g 05/13/2018 1:04 PM [facility] Urine URINE SPECIMEN OBTAINED BY CLEAN CATCH PROCEDURE / Unknown Collection / Unknown 05/13/2018 12:19 PM PIPE LINE MAINTENANCE SUPERVISOR 05/13/2018 12:19 PM PIPE LINE MAINTENANCE SUPERVISOR [facility] - 05/13/2018 1:04 PM PIPE LINE MAINTENANCE SUPERVISOR Condition Microalbumin/Creat ratio Normal Males <17 Normal Females <25 Microalbuminuria Males 17-299 Microalbuminuria Females 25-299 Overt proteinuria >=300 Nito Franklin MD URINE ORDERABLES Final Resul t Performing Organization Address City/[facility] [[email or web address]] Co de Phone Number [facility] CLIA # [id number] [address] [place] [address] * DIABETES EYE EXAM (02/05/2018) us Abstract Spg Provider HEALTH MAINTENANCE Final R esult from Last 3 Months or Most Recently Relevant to Health Maintenance Insurance [place] Member Subscriber Plan / Payer (Ef fective 2017-Present) Name:Bro Rutledge Relation to Subscriber:Self Name:Bro Rutledge Payer ID:[id number] Group ID:Not on file Type:Medicaid Address: [address] [address] [facility] Advance Directives For more information, please contact: [phone] * Full Code (Latest Code Status on [...] 12:07 PM 09/04/2016 2:08 PM Care Teams Associate Consulting Engineer Relationship Specialty Start Date End Date Stella Knight MD [address] [phone] PCP - General Family Practice 07/16/13
--- OUTSIDE RECORDS SUMMARY | 2025-05-26 14:18 | XMS_ITS ---
Author Organization [facility] Address [address] [place] [address] Phone Care Team Providers Care Bank Secrecy Act Officer Name Role Phone Stella Knight MD Primary [...] lb) Assessment & Plan (05/07/2017 2:21 PM MARKETING COPYWRITER): Body mass index is 40.6 kg/m . [...] AM Assessment & Plan (05/11/2016 12:30 PM MARKETING COPYWRITER): Diabetes: Poorly controlled. Medications reviewed and refilled/adjusted [...] 116/87 Assessment & Plan (05/07/2017 2:18 PM MARKETING COPYWRITER): Suboptimal control. Will adjust BP medication Hyperlipidemia [...] AM Assessment & Plan (05/07/2017 2:19 PM MARKETING COPYWRITER): Stable. Continue current medication Vertigo as late [...]
--- OUTSIDE RECORDS SUMMARY | 2025-05-26 14:18 | XMS_ITS | Encounter Summary ---
Author Organization [facility] Address [address] [place] [address] Care Team Providers Care Door Core Assembler Name Role Phone Stella Knight MD Primary Care Provider [phone] Reason for Referral * Outpatient Services (Routine) - Closed Specialty Diagnoses / Procedures Referred By Contantwon cesar Referred To Contact Diagnoses Pain Procedures XR FLUORO LESS THAN 1 HOUR Silviano Melendez MD Phone: tel: fax: Referral ID Status Reason Start Date Expiration Date Visits Re quested Visits Authorized [id number] Closed 12/15/2015 01/14/2017 1 1 Encounter Details Date Type Department Care Team (Late st Contact Info) Description 12/15/2015 Ancillary Orders [facility] Radiology OR [address] [place] [address] Silviano Melendez MD [address] [address] Pain (Primary Dx) Social History Tobacco Use Types Packs/Day Years Used Date Smoking Tobacco: Former Cigarettes 0.5 5 0 03/20/2004 - 03/20/2009 Smokeless Tobacco: Never Alcohol Use Standard Drinks/Week Comments No 0 (1 standard drink = 0.6 oz pur e alcohol) Sex and Gender Information Value Date Recorded Sex Assigned at Not on file Legal Sex Male 3:06 AM 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
--- OUTSIDE RECORDS SUMMARY | 2025-05-26 14:18 | XMS_ITS | Encounter Summary ---
Author Organization [facility] Address [address] [address] Phone Care Team Providers Care Assistant Principal Name Role Phone Unavailable Primary Care Provider Unavailabl e Reason for Visit * Reason Comments Med Refill Encounter Details Date Type Department Care Team (Late st Contact Info) Description 12/04/2018 Refill [facility] [address] [facility] [address] [place] [address] Nito Franklin MD Social History [...]
--- OUTSIDE RECORDS SUMMARY | 2025-05-26 14:18 | XMS_ITS | Encounter Summary ---
Author Organization [facility] Address [address] [place] [address] Care Team Providers Care Belt Molder Name Role Phone Stella Knight MD Primary Care Provider Encounter Details Date Type Department Care Team (Late st Contact Info) Description 04/11/2018 Ancillary Orders [facility] [address] [place] [phone] Katelynn Markham, DEISI [address] [place] [phone] Social History Tobacco Use Types Packs/Day Years Used Date Smoking Tobacco: Former Cigarettes 0.5 5 Smokeless Tobacco: Former Alcohol Use Standard Drinks/Week Comments No 0 (1 standard drink = 0.6 oz pur e alcohol) Sex and Gender Information Value Date Recorded Sex Assigned at Not on file Legal Sex Male 3:06 AM LOGISTICS OFFICER Gender Identity Not on file Sexual Orientation Not on file documented as of this encounter Plan of Treatment Not on file documented as of this encounter Visit Diagnoses Not on filedocumented in this encounter Additional Health Concerns Assessment Noted Time PHQ-9 Depression Total Score: 2 11/09/19 18 11:00 AM CDT documented as of this encounter Care Teams Belt Molder Relationship Specialty Start Date End Date Stella Knight MD [address] [phone] PCP - General Family Practice 07/16/13 documented as of this encounter
[2025-05-26 14:21] VITALS: BP 146/79; PULSE 97; TEMP 36.4; O2SAT 96; BMI 43.3
--- NOTE | 2025-05-26 14:44 | XRR_ITS ---
PROCEDURE INFORMATION: Exam: XR Right Foot Exam date and time: 05/26/2025 2:47 PM Age: 65 years old Clinical indication: Right; RT foot pain TECHNIQUE: Imaging protocol: Radiologic exam of the right foot. Views: 3 or more views. COMPARISON: CR (LOW EXM, ) 05/06/2025 3:00 PM FINDINGS: Bones/joints: Interval partial healing with endosteal callus formation of the nondisplaced fracture at the lateral head of the 5th proximal phalanx on the right foot. Stable degenerative changes at the right tibiotalar joint. Soft tissues: Stable marked soft tissue swelling dorsal to the right metatarsals and at the right 4th and 5th toes. No soft tissue emphysema. No radiopaque foreign body. Vasculature: Stable extensive atherosclerotic calcifications in the visualized arteries. XR/XR foot RT min 3V* [id number] IMPRESSION: 1. No acute fracture of the right foot. Followup radiographs recommended in 7-14 days if clinical concern for fracture persists. 2. Interval partial healing with endosteal callus formation of the nondisplaced fracture at the lateral head of the 5th proximal phalanx on the right foot. 3. Stable marked soft tissue swelling dorsal to the right metatarsals and at the right 4th and 5th toes. 4. Incidental/nonacute findings are listed in the report.
--- NOTE | 2025-05-26 14:44 | USCV_ITS ---
Bro Rutledge Age: 65 Gender: M : 1960 Exam Date: 05/26/2025 15:12 Ordering Phys: Ernie Antony MD Technologist: Exam [place] [facility] [place] Indication: swelling HISTORY: Lower extremity swelling. PROCEDURES: Venous duplex imaging was performed in only the right lower extremity. Serial compression, augmentation maneuvers, and spectral Doppler flow evaluation were performed. FINDINGS: No evidence of DVT seen in any vessel visualized at this time. Enlarged lymph nodes seen in the Right groin. CONCLUSIONS No evidence of right lower extremity DVT. Enlarged lymph nodes right groin, largest measuring 4.0 x 3.9cm with preserved fatty hilum. This is non-specific but may be reactive. Recommend correlation with history. This could be followed up with CT or US to assess change Louie Baez MD (Electronically Signed) Final Date: 28 May 2025 12:37 S
--- NOTE | 2025-05-26 14:50 | W.ED.EXTPRO ---
HPI - Extremity Problem General: Chief complaint: Extremity Injury, Lower Stated complaint: R foot Swollen Time Seen by Provider: 05/26/25 14:34 Source: patient Mode of arrival: ambulatory Limitations: no limitations History of Present Illness: 65-year-old male states that he had injured his right foot 2 weeks ago. States since then he has been having some swelling along with erythema. Does have pain he rates a 2 out of 10. Denies any new injuries he denies any fevers denies any worsening from fractures. Related Data Home Medications ?Medication ?Instructions ?Recorded ?Confirmed amlodipine 10 mg tablet 10 mg PO QAM 05/26/25 05/26/25 clopidogrel 75 mg tablet 75 mg PO QAM 05/26/25 05/26/25 docusate sodium 100 mg capsule 100 mg PO BID 05/26/25 05/26/25 metformin 1,000 mg tablet 1,000 mg PO BID 05/26/25 05/26/25 metoprolol tartrate 25 mg tablet 12.5 mg PO BID 05/26/25 05/26/25 semaglutide 0.25 mg or 0.5 mg (2 2 mg SUBCUT Q7D 05/26/25 05/26/25 mg/3 mL) subcutaneous pen injector (nuevoStage) simvastatin 40 mg tablet 40 mg PO QAM 05/26/25 05/26/25 Previous Rx's ?Medication ?Instructions ?Recorded aspirin 81 mg chewable tablet 81 mg PO DAILY #30 tabs 03/11/20 blood-glucose meter (Blood Glucose #1 ea 02/14/22 Monitoring kit) lancets 30 gauge (BD Microtainer #100 ea 02/14/22 Lancet) Motorized Scooter #1 ea 07/05/22 Wheeled Walker w/Seat #1 ea 08/23/22 DME: Walker #1 ea 11/28/22 AFO brace #1 ea 04/30/23 compression socks #1 ea 04/30/23 blood sugar diagnostic (OneTouch #100 strips 07/25/23 Ultra Test strips) lift chair #1 ea 07/29/23 diabetic shoes with 3 inserts #1 ea 09/22/24 motorized scooter battery #1 ea 05/10/25 cephalexin 500 mg capsule 500 mg PO Q8H 7 days #21 caps 05/12/25 power wheelchair repair #1 ea 05/20/25 cephalexin 500 mg capsule 500 mg PO TID 7 days #21 caps 05/26/25 Allergies Allergy/AdvReac Type Severity Reaction Status Date / Time No Known Allergies Allergy Verified 05/26/25 14:26 PFSH ED PFSH: Medical History Enrolled in chronic care management History of CVA (cerebrovascular accident) Hyperlipidemia Type 2 diabetes mellitus without complication Hypertension, unspecified type Surgical History Hx of tympanostomy Family History Mother Cancer Sister Cancer Father CAD (coronary artery disease) Stroke Social History Smoking and tobacco/nicotine status: former use of tobacco/nicotine Second hand smoke exposure: Yes Alcohol intake: never Physical Exam Const: COMMON NORMALS: no acute distress, patient oriented x3 and healthy appearing HENMT: COMMON NORMALS: normocephalic and atraumatic HEAD & SCALP: normocephalic and atraumatic Eye: COMMON NORMALS: conjunctivae normal CONJUNCTIVA: Yes conjunctivae normal Neck/C-Spine: COMMON NORMALS: full ROM and supple Chest: COMMONS NORMALS: normal inspection of the chest Resp: COMMON NORMALS: normal respiratory effort Cardio: COMMON NORMALS: regular rate, regular rhythm and No murmurs present (Cardio) RATE: regular rate RHYTHM: regular rhythm Extremity: COMMON NORMALS: full ROM NARRATIVE EXTREMITY EXAM: Swelling noted to right foot with some slight erythema no drainage Neuro: COMMON NORMALS: patient oriented x3, moves all extremities and no focal motor deficits Psych: COMMON NORMALS: mental status grossly normal, Normal thought process present and cooperative THOUGHT PROCESS: Normal thought process present Skin: COMMON NORMALS: no rashes or lesions noted and no wounds GENERAL SKIN EXAM: no rashes or lesions noted Course Vital Signs: Vital signs: Vital Signs Temperature 97.5 F L 05/26/25 14:21 Pulse Rate 97 05/26/25 14:21 Blood Pressure 154/92 05/26/25 15:58 Pulse Oximetry 96 05/26/25 14:21 Oxygen Delivery Me thod Room Air 05/26/25 14:21 MDM - Extremity (Nontraumatic) Medical Decision Making Patient presents with swelling to right foot differential includes cellulitis, DVT. Patient's exam here showed some slight erythema distal pulses were palpable no signs of arterial occlusion. Ultrasound of the leg showed no signs of DVT x-ray of his foot showed no acute abnormalities interpreted by me. Blood work showed no significant abnormalities. Likely has a mild cellulitis we will start him on Keflex will refer him podiatry I did go over these findings with him he understands agrees to plan he is return if worsening. Medical Records I reviewed the patient's medical records. Lab Data I reviewed the patient's lab results. 05/26/25 15:46 05/26/25 15:46 Radiology Impressions Foot X-Ray 05/26/25 14:44 IMPRESSION: 1. No acute fracture of the right foot. Followup radiographs recommended in 7-14 days if clinical concern for fracture persists. 2. Interval partial healing with endosteal callus formation of the nondisplaced fracture at the lateral head of the 5th proximal phalanx on the right foot. 3. Stable marked soft tissue swelling dorsal to the right metatarsals and at the right 4th and 5th toes. 4. Incidental/nonacute findings are listed in the report. Laboratory Results WBC 9.09 10^3/uL (3.29-11.43) 05/26/25 15:46 RBC 4.95 10^6/uL (3.85-5.65) 05/26/25 15:46 Hgb 13.70 g/dL (11.27-16.99) 05/26/25 15:46 Hct 41.8 % (37-53) 05/26/25 15:46 MCV 84.4 fl (82-101) 05/26/25 15:46 MCH 27.7 pg (27-33) 05/26/25 15:46 MCHC 32.8 g/dL (30-55) 05/26/25 15:46 RDW 14.1 % (12.1-15.1) 05/26/25 15:46 Plt Count 306 10^3/cmm (157-399) 05/26/25 15:46 MPV 10.1 fL (7.4-10.4) 05/26/25 15:46 Neut % (Auto) 71.9 % 05/26/25 15:46 Lymph % (Auto) 16.2 % 05/26/25 15:46 Ramsey % (Auto) 6.8 % 05/26/25 15:46 Eos % (Auto) 4.7 % 05/26/25 15:46 Baso % (Auto) 0.2 % 05/26/25 15:46 Neut # (Auto) 6.53 10^3/uL (1.8-7.7) 05/26/25 15:46 Lymph # (Auto) 1.5 10^3/uL (0.8-4.8) 05/26/25 15:46 Ramsey # (Auto) 0.6 10^3/uL (0.2-0.9) 05/26/25 15:46 Eos # (Auto) 0.4 10^3/uL (0.0-0.8) 05/26/25 15:46 Baso # (Auto) 0.0 10^3/uL (0.0-0.1) 05/26/25 15:46 Nucleated RBC % (auto) 0 % 05/26/25 15:46 Nucleated RBCs # 0.0 /100WBC 05/26/25 15:46 Sodium 142 mmol/L (136-145) 05/26/25 15:46 Potassium 3.7 mmol/L (3.5-5.1) 05/26/25 15:46 Chloride 103 mmol/L (98-107) 05/26/25 15:46 Carbon Dioxide 26 mmol/L (22-29) 05/26/25 15:46 Anion Gap 16.7 (5-19) 05/26/25 15:46 BUN 11 mg/dL (8-23) 05/26/25 15:46 Creatinine 0.8 mg/dL (0.7-1.2) 05/26/25 15:46 GFR Calculation 97.6 mL/min (90-130) 05/26/25 15:46 Glucose 113 mg/dL (65-115) 05/26/25 15:46 Calculated Osmolality 294 mOsm/kg (285-295) 05/26/25 15:46 Calcium 8.7 mg/dL (8.5-10.5) 05/26/25 15:46 All radiology interpretation(s) finalized by discharge Discharge Plan Discharge Patient Disposition: Home Clinical Impression: Cellulitis of foot, right Condition: Stable Prescriptions: New cephalexin 500 mg capsule 500 mg PO TID 7 Days Qty: 21 0RF No Action (DME) Wheeled Walker w/Seat See Rx Instructions .Route .MEDSUPPLY Qty: 1 0RF Rx Instructions: As directed (DME) DME: Walker Unit See Rx Instructions .Route Qty: 1 0RF Rx Instructions: As directed- WALKER WITH WHEELS (DME) compression socks See Rx Instructions .Route .MEDSUPPLY Qty: 1 0RF Rx Instructions: As directed (DME) AFO brace See Rx Instructions .Route .MEDSUPPLY Qty: 1 0RF Rx Instructions: As directed to the [employer] [place] (DME) lift chair See Rx Instructions .Route .MEDSUPPLY Qty: 1 0RF Rx Instructions: As directed (DME) power wheelchair repair See Rx Instructions .Route .MEDSUPPLY Qty: 1 0RF Rx Instructions: As directed (DME) diabetic shoes with 3 inserts See Rx Instructions .Route .MEDSUPPLY Qty: 1 0RF Rx Instructions: As directed to the [employer] [place] cephalexin 500 mg capsule 500 mg PO Q8H 7 Days Qty: 21 0RF (DME) blood-glucose meter [Blood Glucose Monitoring] Kit See Rx Instructions .ROUTE .MEDSUPPLY Qty: 1 0RF Rx Instructions: As directed (DME) lancets [BD Microtainer Lancet] 30 gauge misc See Rx Instructions .Route Qty: 100 0RF Rx Instructions: As directed (DME) Motorized Scooter See Rx Instructions .Route .MEDSUPPLY Qty: 1 0RF Rx Instructions: As directed (DME) OneTouch Ultra Test Strip See Rx Instructions .ROUTE .COMPLEX Qty: 100 0RF Dose Instruction: USE TO TEST TWICE DAILY Rx Instructions: USE TO TEST TWICE DAILY (DME) motorized scooter battery See Rx Instructions .Route .MEDSUPPLY Qty: 1 0RF Rx Instructions: As directed aspirin 81 mg tablet,chewable 81 mg PO DAILY Qty: 30 0RF Ozempic 0.25 mg or 0.5 mg (2 mg/3 mL) pen injector 2 mg SUBCUT Q7D Rx Instructions: Saturday's clopidogrel 75 mg tablet 75 mg PO QAM simvastatin 40 mg tablet 40 mg PO QAM amlodipine 10 mg tablet 10 mg PO QAM metformin 1,000 mg tablet 1,000 mg PO BID docusate sodium 100 mg capsule 100 mg PO BID metoprolol tartrate 25 mg tablet 12.5 mg PO BID Discharge Orders: Discharge ED (Routine); Ordered 05/26/25 Ordered By: Ernie Antony Referrals: Katelynn Markham FNP [Primary Care Provider, [facility]] - 4-7 days Discharge Diet: Advance as tolerated Discharge Activity: Resume usual activity Patient Instructions: Cellulitis (ED) Print Language: Albanian Coding Level of Care Code ED Ergonomic Specialist for Grace Severino
[2025-05-26 15:58] VITALS: BP 154/92
[2025-05-26 16:18] LABS: Hematocrit 41.8 % (37-53); Hemoglobin 13.70 g/dL (11.27-16.99); Mean Corpuscular HGB Conc 32.8 g/dL (30-55); Mean Corpuscular Hemoglobin 27.7 pg (27-33); Mean Corpuscular Volume 84.4 fl (82-101); Nucleated Red Blood Cells % 0 %; Platelet Count 306 10^3/cmm (157-399); Red Blood Count 4.95 10^6/uL (3.85-5.65); White Blood Count 9.09 10^3/uL (3.29-11.43)
[2025-05-26 16:27] LABS: Anion Gap 16.7 (5-19); Blood Urea Nitrogen 11 mg/dL (8-23); Calcium 8.7 mg/dL (8.5-10.5); Carbon Dioxide 26 mmol/L (22-29); Chloride 103 mmol/L (98-107); Glucose 113 mg/dL (65-115); Osmolality Calculated 294 mOsm/kg (285-295); Potassium 3.7 mmol/L (3.5-5.1); Sodium 142 mmol/L (136-145)
--- NOTE | 2025-05-27 07:25 | DCPLANNER ---
messaged podiatry for er f/u
== END 2025-05-26 17:06 | disposition home or self-care (01) ==
PROVIDERS: Emergency Provider Emergency Medicine; PCP Nurse Practitioner Family
DX: L03.115 Cellulitis of right lower limb (principal); Z79.82 Long term (current) use of aspirin; Z79.02 Long term (current) use of antithrombotics/antiplatelets; Z79.84 Long term (current) use of oral hypoglycemic drugs; Z87.891 Personal history of nicotine dependence; E78.5 Hyperlipidemia, unspecified; Z86.73 Personal history of transient ischemic attack (TIA), and cerebral infarction without residual deficits; E11.9 Type 2 diabetes mellitus without complications; I10 Essential (primary) hypertension
CPT/HCPCS: 36415; 73630; 80048; 85025; 93971; 99284

== ENCOUNTER → 2025-06-02 13:40 | Outpatient (BNVA) | payer MEDICARE, MEDICAID, SELFPAY | PROVIDERS: PCP Nurse Practitioner Family; Visit Provider Podiatrist Foot & Ankle Surgery | DX: E11.8 Type 2 diabetes mellitus with unspecified complications (principal); B35.1 Tinea unguium; L84 Corns and callosities; Z86.73 Personal history of transient ischemic attack (TIA), and cerebral infarction without residual deficits; R53.1 Weakness; L03.115 Cellulitis of right lower limb; I87.2 Venous insufficiency (chronic) (peripheral); M21.371 Foot drop, right foot; Z79.84 Long term (current) use of oral hypoglycemic drugs | CPT/HCPCS: 99213 ==

== ENCOUNTER → 2025-06-09 13:21 | Outpatient (BNVA) | payer MEDICARE, MEDICAID, SELFPAY | PROVIDERS: PCP Nurse Practitioner Family; Visit Provider Podiatrist Foot & Ankle Surgery | DX: E11.8 Type 2 diabetes mellitus with unspecified complications (principal); B35.1 Tinea unguium; L84 Corns and callosities; Z86.73 Personal history of transient ischemic attack (TIA), and cerebral infarction without residual deficits; M21.379 Foot drop, unspecified foot; R53.1 Weakness; L03.115 Cellulitis of right lower limb; I87.2 Venous insufficiency (chronic) (peripheral); M21.371 Foot drop, right foot; Z79.84 Long term (current) use of oral hypoglycemic drugs; Z79.85 Long-term (current) use of injectable non-insulin antidiabetic drugs | CPT/HCPCS: 99213 ==

== ENCOUNTER → 2025-06-16 13:26 | Outpatient (BNVA) | payer MEDICARE, MEDICAID, SELFPAY | PROVIDERS: PCP Nurse Practitioner Family; Visit Provider Podiatrist Foot & Ankle Surgery | DX: E11.8 Type 2 diabetes mellitus with unspecified complications (principal); B35.1 Tinea unguium; L84 Corns and callosities; Z86.73 Personal history of transient ischemic attack (TIA), and cerebral infarction without residual deficits; R53.1 Weakness; L03.115 Cellulitis of right lower limb; I87.2 Venous insufficiency (chronic) (peripheral); S92.501A Displaced unspecified fracture of right lesser toe(s), initial encounter for closed fracture; E11.69 Type 2 diabetes mellitus with other specified complication; M21.371 Foot drop, right foot; X58.XXXA Exposure to other specified factors, initial encounter; Z79.84 Long term (current) use of oral hypoglycemic drugs; Z79.85 Long-term (current) use of injectable non-insulin antidiabetic drugs | CPT/HCPCS: 11721; 99213 ==